=== PATIENT | male | born 1955 | race Caucasian/White ===

== ENCOUNTER 2018-03-16 08:04 | Day surgery (SDC) | payer MEDICARE, SELFPAY ==
[2018-03-10 12:08] LABS: Bacteria 0 SEEN /hpf (None Seen); Mucous, Urine 0 SEEN /hpf (<or=2+); Red Blood Cells-Urine 0 SEEN /hpf (0-5); Squamous Epithelial Cells - UA 0 SEEN /hpf (0-5); White Blood Cells 0 SEEN /hpf (0-5)
--- NOTE | 2018-03-10 12:15 | RAD_ITS ---
STUDY: X-RAY CHEST REASON FOR EXAM: Male, 62 years old. Preop, no chest complaint TECHNIQUE: PA and lateral views of the chest. COMPARISON: 02/21/2015 FINDINGS: There is hyperinflation of the lungs consistent with chronic obstructive lung disease (COPD). Lungs are clear. There is no demonstrated pleural abnormality. Stable left chest wall pacing device Normal size heart. Normal mediastinum and donnie. Normal visualized pulmonary arteries. Normal visualized aortic arch and descending thoracic aorta. There are diffuse degenerative changes of the visualized thoracic spine. Normal visualized ribs, clavicles, and shoulders. There is no demonstrated abnormality of the visualized soft tissue structures of the upper abdomen. RAD/Chest PA and Lateral IMPRESSION: COPD. Lungs are clear. Electronically Signed: Fredis Ayala DO at 13:32 EST Tel , Service support ,
[2018-03-10 12:39] LABS: Hematocrit 45.6 % (40-54); Hemoglobin 15.3 g/dl (13.0-16.5); Mean Corp Hgb Conc 33.6 g/gl (32-36); Mean Corpuscular Hgb 31.6 pg (27.0-32.0); Mean Corpuscular Volume 94.2 fL (80-94); Mean Platelet Vol. 10.9 fl (6.2-12.0); Platelet Count 279 K/mm3 (150-450); RBC Distribution Width CV 13.2 % (11.6-14.6); Red Blood Count 4.84 M/mm3 (4.6-6.2); White Blood Count 9.6 K/mm3 (4.4-11.0)
[2018-03-10 12:41] LABS: Scan Indicated on CBC? Y/N NO
[2018-03-10 12:44] LABS: International Normalized Ratio 0.9; Prothrombin Time (Protime)PT. 12.5 SECONDS (11.7-14.9)
[2018-03-10 12:49] LABS: Anion Gap 8 (5-15); BUN 15 mg/dL (7-18); BUN/Creat Ratio 14.6 RATIO (10-20); Calcium,Total 9.3 mg/dL (8.5-10.1); Chloride 107 mmol/L (98-107); Creatinine, Serum 1.03 mg/dL (0.70-1.30); EST Glomerular Filtration Rate 78 mL/min (>60); Est Glom Filt Rate - Afr Amer 94 mL/min (>60); Glucose 101 mg/dL (74-106); Potassium 4.3 mmol/L (3.5-5.1); Sodium Level 142 mmol/L (136-145)
[2018-03-10 14:16] LABS: Color, Urine Yellow (Yellow); Glucose, Dipstick Normal (Normal); Ketone-Dipstick Negative (Negative); Leukocyte Esterase-Dipstick Negative /ul (Negative); Nitrite-Dipstick Negative (Negative); Occult Blood-Urine Negative /ul (Negative); Protein-Dipstick Negative (Negative); Urine Bilirubin Dipstick Negative (Negative); Urine Clarity Sl. Cloudy (Clear); Urine Urobilinogen Normal (Normal); Urine pH 6.5 (5.0 - 8.0)
[2018-03-15 11:40] VITALS: BMI 30.4
--- NOTE | 2018-03-16 10:50 | CL.IE_ITS ---
Patient: KAMERON KOHLI Study Date: 03/16/2018 Performing: Ramin Schmitz MD : 1955 Age: 62 Gender: male PROCEDURES PERFORMED [id number] REMOVAL+REPLACEMENT ICD-SINGLE LEAD INDICATIONS End-of-life replacement indicator PROCEDURE DETAILS The patient was brought to the Catheterization Lab in the postabsorptive nonsedated state. Infor med consent was obtained prior to the procedure. Local anesthetic was given subcutaneously to the le ft chest region with Lidocaine 2%. Incision was made to the left upper chest. Device pocket was irrig ated with antibiotic. ICD generator was attached to the lead(s) and inserted into pocket. ICD generat or was then interrogated by numerical control programmer. The ICD generator was sutured in place with 3-0 Silk. Subcuta neous closure was completed with 3-0 Vicryl. Skin closure was completed with 4-0 Vicryl. Steri-strips applied to Lt chest area. Instrument, sponge, and needle counts were noted to be normal. The patient tolerated the procedure well. 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 The programmed parameters were a VVI of 40 bpm and aVF detection rate of 210 bpm and a VT dete ction rate of 170 bpm. DEVICE PARAMETERS: VT detect rate - 170 VF detect rate - 210 kuldip rate - 40 CONCLUSIONS / RECOMMENDATIONS Device Conclusions: Successful pulse generator insertion of a single-chamber ICD pulse generator with removal of the old ICD battery, with Dr. Yossi De Anda present. Device Recommendations: Follow-up with pacemaker defibrillator clinic PROCEDURE MEDICATIONS Versed 1 mg IV Fentanyl 50 mcg IV Versed 1 mg IV Oxygen: 2 L/min via nasal cannula Signed By Ramin Schmitz MD On 03/16/2018 13:27:47 Signed By Ramin Schmitz MD On 03/16/2018 10:49:56 Ramin Schmitz MD
== END 2018-03-16 12:00 | disposition home or self-care (01) ==
LOC: CLSP 08:05
PROVIDERS: Internal Medicine Cardiovascular Disease; Referring Provider Internal Medicine Cardiovascular Disease; Visit Provider Internal Medicine Cardiovascular Disease
DX: Z45.010 Encounter for checking and testing of cardiac pacemaker pulse generator [battery] (principal); Z95.810 Presence of automatic (implantable) cardiac defibrillator; I25.10 Atherosclerotic heart disease of native coronary artery without angina pectoris; I25.5 Ischemic cardiomyopathy; Z95.5 Presence of coronary angioplasty implant and graft; F17.200 Nicotine dependence, unspecified, uncomplicated; Z79.82 Long term (current) use of aspirin; Z00.6 Encounter for examination for normal comparison and control in clinical research program
CPT/HCPCS: 33262; 36415; 71046; 80048; 81001; 85027; 85610; 93641; 99152; 99153; J7040; J7050

== ENCOUNTER → 2018-03-22 06:49 | Outpatient (CLI) | payer MEDICARE, SELFPAY ==
[2018-03-15 11:40] VITALS: BMI 30.4
--- NOTE | 2018-03-22 12:20 | STRESSREP ---
Stress Test Report Pharmacologic myocardial perfusion stress test. 62-year-old man with a history of coronary artery disease with previous occluded left anterior descending artery stent ICD and ischemic cardiomyopathy. Stress protocol: Resting EKG demonstrates normal sinus rhythm with a rate of 65 bpm resting blood pressure 110/72 mmHg left bundle branch block pattern is noted. 0.4 mg of regadenoson was infused per usual protocol followed by rapid intravenous saline flush injection continuous EKG monitoring was performed. The patient maintained sinus rhythm throughout the recording the maximum heart rate attained was 90 bpm which was 56% of maximum predicted heart rate the maximum workload was 1 metabolic equivalent. At rest there were no ST or T wave changes noted suggest abnormal flow reserve at peak infusion no ST or T wave changes were noted suggest abnormal flow reserve. The resting blood pressure 110/72 with a final blood pressure 120/78. No clinical angina was noted. Myocardial perfusion protocol. 14.2 mCi of technetium 99m sestamibi was injected at rest. 0.4 mg of regadenoson was infused per usual protocol. At peak infusion 44.6 mCi of technetium 99m sestamibi was injected stress images were obtained stress and rest images were reconstructed and compared in the short axis vertical long and horizontal long axis. Gated images were also obtained per Perfusion SPECT analysis: Review of the stress images demonstrate a dilated cardiac silhouette size. There is a large defect noted involving the mid to distal anterior wall and apex as well as a defect in the inferior wall. The lateral wall appears to be well perfused. The septal wall has moderately reduced perfusion. The resting images demonstrate a similar pattern. The above is suggestive of an extensive previous anterior septal and apical infarct as well as a previous inferior infarct. The lateral wall appears to be the best perfused wall. No obvious areas of ischemia are noted. Gated SPECT analysis: The gated ejection fraction is noted to be 22%. Conclusion: Pharmacologic myocardial perfusion stress test with no evidence of ischemia. Previous extensive anterior, anteroseptal, apical and inferior infarct noted. Ischemic cardiomyopathy
--- OUTSIDE RECORDS SUMMARY | 2018-05-24 01:43 | XMS RPT_ITS | Summary of Care ---
:1955 Author Organization [facility] Address [address] [place] [address] Care Team Providers Name Role Phone Aurora Spann SECURITY PATROL DRIVER Primary Care Provider Encounter Details Date Type Department Care Team Description 03/13/2018 Documentation [facility] Jennifer Romero RN [place] Allergies Active Allergy Reactions Severity Noted Date Comments Simvastatin Other (See Comments) as of this encounter Medications Medication Sig Dispensed Refills Start Date End Date Status aspirin 325 MG tablet ASPIRIN 325 MG 0 05/29/2010 Active TABS coenzyme Q10 100 mg CO Q-10 100 MG 0 08/19/2010 Active capsule CAPS pravastatin Take 1 tablet(s) 3 12/30/2017 Active (PRAVACHOL) 80 MG every day by oral tablet route at bedtime for 30 days. carvedilol (COREG) Take 1 tablet(s) 3 12/16/2017 Active 3.125 MG tablet twice a day by oral route as directed for 90 days. furosemide (LASIX) 20 Take 1 tablet(s) 3 12/16/2017 Active MG tablet every day by oral route as directed for 90 days. VENTOLIN HFA 90 Take 90 mcg by 3 02/19/2018 Active mcg/actuation inhaler mouth as needed . cholecalciferol, Take 400 Units by 0 Active vitamin D3, 400 unit mouth 2 (two) Tab times a day . zinc gluconate 50 mg Take 50 mg by 0 Active tablet mouth daily . ascorbic acid, vitamin Take 1,000 mg by 0 Active C, (VITAMIN C) 1000 MG mouth daily . tablet b complex vitamins Take 1 tablet by 0 Active tablet mouth daily . as of this encounter Active Problems No known active problemsas of this encounter Social History Tobacco Use Types Packs/Day Years Used Date Current Every Day Smoker Cigarettes 1.5 Started: 03/09/1969 Smokeless Tobacco: Never Used Alcohol Use Drinks/Week oz/Week Comments Yes Sex Assigned at Date Recorded Not on file Job Start Date Occupation Industry Not on file Not on file Not on file Travel History Travel Start Travel End No recent travel history available. as of this encounter Plan of Treatment Upcoming Encounters Date Type Specialty Care Team Description 03/30/2018 Office Visit Pulmonology Paulina Arita MD [address] [facility] [address] [place] [address] [phone] Health Maintenance Due Date Last Done Comments COLONOSCOPY 1955 HEPATITIS C SCREENING 1955 ZOSTER VACCINES (1 of 2) 2006 SEQUENTIAL INFLUENZA VACCINE (#1) 2017 TETANUS EVERY 10 YR 12/11/2026 12/11/2016 as of this encounter Insurance Payer Benefit Plan / Subscriber ID Effective Dates Phone Address Type Group HUMANA MANAGED [employer] [facility] xxxxxxxxx 2017-Present MEDICARE ADVANTAGE CHOICE PPO as of this encounter Advance Directives Patient has advance care planning documents on file. For more information, please contact:[address] [phone]
--- OUTSIDE RECORDS SUMMARY | 2018-05-24 01:43 | XMS RPT_ITS | Summary of Care ---
:1955 Author Organization [facility] Address [address] [place], [place] [id number] Care Team Providers Name Role Phone LeandraAurora castro Talya EMAIL MARKETING COORDINATOR Primary Care Provider Reason for Referral Cardio (Routine) Status Reason Specialty Diagnoses / Referred By Referred To Procedures Contact Contact Authorized Cardiology Diagnoses Abnormal electrocardiogram Congestive heart failure, unspecified HF chronicity, unspecified heart failure type (HCC) Nanci Seay Procedures Echocardiogram complete LIZ Zayas [address] [facility] [address] [place] [address] MRI/CAT/PET Scan (Routine) Status Reason Specialty Diagnoses / Referred By Contact Referred To Procedures Contact Authorized Radiology Diagnoses Lung mass Nanci Seay Procedures CT Biopsy Lung LIZ Zayas [address] [facility] [address] [place] [address] Evaluate and Treat (Routine) Status Reason Specialty Diagnoses / Referred By Referred To Procedures Contact Contact Closed Specialty Cardiothoracic Diagnoses Lung mass [facility] Surgery Neida Hubbard MD State Required/Patien [address] [facility] [address] [facility] t's [facility] [address] [facility] [address] [place] [phone] Phone: Fax: Reason for Visit Reason Comments New Patient Lung mass PFT Evaluate and Treat (Routine) Status Reason Specialty Diagnoses / Referred By Referred To Procedures Contact Contact Closed Specialty Cardiothoracic Diagnoses Lung mass [facility] Surgery Neida Hubbard MD State Required/Patien [address] [place] [address] [place], [place] [phone] Phone: Fax: Encounter Details Date Type Department Care Team Description 03/13/2018 Office Visit [facility] Heart, Zurdo, Kwabena Lung mass (Primary Dx); Lung & Vascular MD Diego Congestive heart failure, unspecified HF chronicity, unspecified heart failure type (HCC); Surgeons [address] Abnormal electrocardiogram [address] [place], [place] [phone] Allergies Active Allergy Reactions Severity Noted Date Comments Simvastatin Other (See Comments) as of this encounter Medications Medication Sig Dispensed Refills Start Date End Date Status aspirin 325 MG ASPIRIN 325 MG 0 05/29/2010 Active tablet TABS coenzyme Q10 100 CO Q-10 100 MG 0 08/19/2010 Active mg capsule CAPS pravastatin Take 1 3 12/30/2017 Active (PRAVACHOL) 80 MG tablet(s) every tablet day by oral route at bedtime for 30 days. carvedilol (COREG) Take 1 3 12/16/2017 Active 3.125 MG tablet tablet(s) twice a day by oral route as directed for 90 days. furosemide (LASIX) Take 1 3 12/16/2017 Active 20 MG tablet tablet(s) every day by oral route as directed for 90 days. VENTOLIN HFA 90 Take 90 mcg by 3 02/19/2018 Active mcg/actuation mouth as needed inhaler . cholecalciferol, Take 400 Units 0 Active vitamin D3, 400 by mouth 2 unit Tab (two) times a day . zinc gluconate 50 Take 50 mg by 0 Active mg tablet mouth daily . ascorbic acid, Take 1,000 mg 0 Active vitamin C, by mouth daily (VITAMIN C) 1000 . MG tablet b complex vitamins Take 1 tablet 0 Active tablet by mouth daily . metFORMIN Take 500 mg by 0 03/13/2018 Discontinued (GLUCOPHAGE) 500 mouth 2 (two) MG tablet times a day with meals . as of this encounter Active Problems [...] travel history available. as of this encounter Last Filed Vital Signs Vital Sign Reading Time Taken Blood Pressure 131/84 03/13/2018 11:54 AM EST Pulse 86 03/13/2018 11:54 AM EST Temperature 36.4 ??C (97.5 ??F) 03/13/2018 11:54 AM EST Respiratory Rate 16 03/13/2018 11:54 AM EST Oxygen Saturation 96% 03/13/2018 11:54 AM EST Inhaled Oxygen Concentration - - Weight 93.8 kg (206 lb 14.4 oz) 03/13/2018 11:54 AM EST Height 175.3 cm (5' 9) 03/13/2018 11:54 AM EST Body Mass Index 30.55 03/13/2018 11:54 AM EST in this encounter Progress Notes Kwabena Renner MD - 03/20/2018 8:09 PM EST [facility] [address] [place] [phone] Name: Ryne King : 1955 Date: 03/13/18 Provider: Kwabena Renner MD Chief Complaint: Chief Complaint Patient presents with ??? New Patient Lung mass PFT Chief Complaint: Ryne King is a 62 y.o. male being seen on 03/20/18 for New Patient (Lung mass PFT ) . Assessment and Plan: Mr. iKng is a 62-year-old gentleman with likely left upper lobe lung cancer. Based on his CT and PET imaging, this appears to be an adjacent satellite lesion. This would clinically staged him asIIB (T3N0). In reviewing his medical history with him, he does have an ICD which was implanted following his massive heart attack in 2009. He admits his ejection fraction has been in the 20-25% rangesince that time. In light of this information, I think proceeding with a lobectomy which would be required given the location of his lesions is probably prohibitive. He does appear that he would tolerate it from a pulmonary perspective however. His FEV1 is 2.62 L which is 76% predicted. His DLCO is 114% predicted.Despite this however, I think his cardiac situation poses a significant risk for surgical resection,and in light of this will likely defer to radiation and possible chemotherapy for his primary treatment. Prior to doing so however, I would like to confirm his most recent ejection fraction remains inthe 20-25% range. He acknowledged understanding of this, and is willing to pursue alternative treatm ent options. Prior to doing so however, we will need to obtain a CT-guided needle biopsy for definitive tissue diagnosis. HPI: Mr. King is a 62 y.o. year old male who presents with a presumed left upper lobe lung cancer which was initially identified following a pulmonary infection in November. Ultimately a CT scan was performed identifying 2 lesions in the left upper lobe. He does have a very significant smoking history. Subsequent PET scan did confirm intense PET activity. He does not have a tissue diagnosis presentat this time however. Medication List Accurate as of 03/13/18 11:59 PM. If you have any questions, ask your nurse or doctor. CONTINUE taking these medications ascorbic acid (vitamin C) 1000 MG tablet Commonly known as: VITAMIN C aspirin 325 MG tablet b complex vitamins tablet carvedilol 3.125 MG tablet Commonly known as: COREG cholecalciferol (vitamin D3) 400 unit Tab coenzyme Q10 100 mg capsule furosemide 20 MG tablet Commonly known as: LASIX pravastatin 80 MG tablet Commonly known as: PRAVACHOL VENTOLIN HFA 90 mcg/actuation inhaler Generic drug: albuterol zinc gluconate 50 mg tablet Allergies Allergen Reactions ??? Simvastatin Other (See Comments) Past Medical History: Diagnosis Date ??? Heart attack (HCC) 2009 ??? Hyperlipidemia ??? Sleep apnea ??? Smoker ??? Stroke (HCC) 2009 Past Surgical History: Procedure Laterality Date ??? CARDIAC DEFIBRILLATOR PLACEMENT ??? OTHER SURGICAL HISTORY ??? STENT PLACEMENT x2 Family History Problem Relation Age of Onset ??? Hypertension Father Social History Socioeconomic History ??? Marital status: Unknown Spouse name: Not on file ??? Number of children: Not on file ??? Years of education: Not on file ??? Highest education level: Not on file Social Needs ??? Financial resource strain: Not on file ??? Food insecurity - worry: Not on file ??? Food insecurity - inability: Not on file ??? Transportation needs - medical: Not on file ??? Transportation needs - non-medical: Not on file Occupational History ??? Not on file Tobacco Use ??? Smoking status: Current Every Day Smoker Packs/day: 1.50 Types: Cigarettes Start date: 03/09/1969 ??? Smokeless tobacco: Never Used Substance and Sexual Activity ??? Alcohol use: Yes ??? Drug use: Not on file ??? Sexual activity: Not on file Other Topics Concern ??? Not on file Social History Narrative ??? Not on file Review of Systems Constitutional: Positive for fatigue. Negative for activity change, chills, diaphoresis and unexpected weight change. HENT: Negative. Respiratory: Positive for cough and shortness of breath. Negative for apnea, chest tightness and wheezing. Cardiovascular: Negative for chest pain, palpitations and leg swelling. Gastrointestinal: Negative for abdominal distention, constipation, diarrhea, nausea and vomiting. Musculoskeletal: Positive for arthralgias. Negative for joint swelling and myalgias. Skin: Negative. Neurological: Negative for dizziness, syncope, weakness and headaches. Hematological: Negative. Psychiatric/Behavioral: Negative. BP 131/84 (BP Location: Left arm, Patient Position: Sitting, BP Cuff Size: Adult) Pulse 86 Temp 97.5 ??F (36.4 ??C) (Oral) Resp 16 Ht 5' 9 Wt 93.8 kg (206 lb 14.4 oz) SpO2 96% BMI30.55 kg/m?? Body mass index is 30.55 kg/m??. Ht Readings from Last 1 Encounters: 03/13/18 5' 9 Wt Readings from Last 1 Encounters: 03/13/18 93.8 kg (206 lb 14.4 oz) Physical Exam Constitutional: He is oriented to person, place, and time. He appears well- developed and well-nourished. No distress. HENT: Head: Normocephalic and atraumatic. Neck: Normal range of motion. Neck supple. No JVD present. No tracheal deviation present. No thyromegaly present. Cardiovascular: Normal rate and regular rhythm. Pulmonary/Chest: Effort normal. No stridor. No respiratory distress. He has wheezes. Abdominal: Soft. Bowel sounds are normal. He exhibits no distension. There is no tenderness. There is no rebound. Musculoskeletal: Normal range of motion. He exhibits no edema. Lymphadenopathy: He has no cervical adenopathy. Neurological: He is alert and oriented to person, place, and time. No cranial nerve deficit. Skin: Skin is warm and dry. He is not diaphoretic. No erythema. Psychiatric: He has a normal mood and affect. His behavior is normal. ECO Kwabena Renner MD [facility] Heart, Lung & Vascular Surgeons [address], [address] [place] [id number] [email or web address] Gabriella Nunez CMA - 03/13/2018 12:02 PM ESTReview of Systems Constitution: Positive for night sweats. Negative for diaphoresis, malaise/fatigue, weight gain and weight loss. HENT: Negative for hearing loss, nosebleeds and tinnitus. Eyes: Negative for blurred vision and visual disturbance. Cardiovascular: Negative for chest pain, claudication, cyanosis, dyspnea on exertion, irregular heartbeat, leg swelling, near-syncope, orthopnea, palpitations, paroxysmal nocturnal dyspnea and syncope. Respiratory: Positive for snoring. Negative for hemoptysis and shortness of breath. Endocrine: Negative for cold intolerance and heat intolerance. Hematologic/Lymphatic: Does not bruise/bleed easily. Skin: Negative for flushing, poor wound healing and rash. Musculoskeletal: Negative for back pain, muscle weakness and myalgias. Gastrointestinal: Negative for abdominal pain, change in bowel habit, melena, nausea and vomiting. Genitourinary: Negative for decreased libido and hematuria. Neurological: Negative for loss of balance and numbness. Psychiatric/Behavioral: Negative for memory loss. The patient is not nervous/anxious. in this encounter Plan of Treatment Upcoming Encounters Date Type Specialty Care Team Description 03/27/2018 Appointment Cardiology Nanci Seay PA-C [address] [address] [phone] 03/27/2018 Hospital Encounter Radiology Nanci Seay PA-C [address] [address] [phone] 03/30/2018 Office Visit Pulmonology Paulina Arita MD [address] [facility] [address] [place] [address] [phone] Scheduled Tests Name Priority Associated Diagnoses Order Schedule CT Biopsy Lung Routine Lung mass 1 Occurrences starting 03/13/2018 until 03/13/2019 Echocardiogram complete Routine Abnormal electrocardiogram 1 Occurrences starting Congestive heart failure, 03/13/2018 until unspecified HF chronicity, 05/12/2019 unspecified heart failure type (HCC) CBC and Differential Routine Lung mass 1 Occurrences starting 03/14/2018 until 03/15/2019 PT/INR Routine Congestive heart failure, 1 Occurrences starting unspecified HF chronicity, 03/14/2018 until unspecified heart failure 03/15/2019 type (HCC) Health Maintenance Due Date Last Done Comments COLONOSCOPY 1955 HEPATITIS C SCREENING 1955 ZOSTER VACCINES (1 of 2) 2006 SEQUENTIAL INFLUENZA VACCINE (#1) 2017 TETANUS EVERY 10 YR 12/11/2026 12/11/2016 as of this encounter Procedures Procedure Name Priority Date/Time Associated Diagnosis Comments EXTERNAL LAB SCAN 03/20/2017 in this encounter Results EXTERNAL LAB SCAN (03/20/2017) Narrative Performed At Ordered by an unspecified provider. in this encounter Visit Diagnoses Diagnosis Lung mass - Primary Swelling, mass, or lump in chest Congestive heart failure, unspecified HF chronicity, unspecified heart failure type (HCC) Abnormal electrocardiogram Nonspecific abnormal electrocardiogram (ECG) (EKG) in this encounter Insurance Payer Benefit Plan / Subscriber ID Effective Dates Phone Address Type Group [facility] xxxxxxxxx 2017-Present MEDICARE ADVANTAGE CHOICE PPO [phone] [id number] (Work) as of this encounter Advance Directives Patient has advance care planning documents on file. For more information, please contact:[address] [phone]
--- OUTSIDE RECORDS SUMMARY | 2018-05-24 01:43 | XMS RPT_ITS | Summary of Care ---
:1955 Author Organization [facility] Address [address] [place] [address] Care Team Providers Name Role Phone Aurora Spann [facility] Primary Care Provider Encounter Details Date Type Department Care Team Description 03/13/[address] [facility] Lacy Bar, Lung mass Pulmonary Lab GSA COORDINATOR [address] [id number] [place] [address] [place] [address] [phone] Allergies Active Allergy Reactions Severity Noted Date [...] oral route as directed for 90 days. metFORMIN Take 500 mg by 0 03/13/2018 [...] Visit Pulmonology Paulina Arita MD [address] [facility] [address] [place] [address] [phone] Pending Results Name Priority Associated Diagnoses Date/Time Complete PFT with Pre and Post Routine Lung mass 03/13/2018 11:16 AM EST Bronchodilator Health Maintenance Due Date Last Done Comments COLONOSCOPY 1955 HEPATITIS C SCREENING 1955 ZOSTER VACCINES (1 of 2) 2006 SEQUENTIAL INFLUENZA VACCINE (#1) 2017 TETANUS EVERY 10 YR 12/11/2026 12/11/2016 as of this encounter Procedures Procedure Name Priority Date/Time Associated Diagnosis Comments COMPLETE PFT Routine 03/13/2018 11:16 AM EST Lung mass in this encounter Visit Diagnoses Diagnosis Lung mass Swelling, mass, or lump in chest in this encounter Administered Medications Inactive Administered Medications - up to 3 most recent administrations Medication Order MAR Action Action Date Dose Rate Site albuterol (PROVENTIL) 2.5 mg /3 Given 03/13/2018 11:12 AM EST 2.5 mg mL (0.083 %) nebulizer solution 2.5 mg 2.5 mg, Nebulization, Once (RT), 03/13/18 at 1200, For 1 dose, To be administered as part of Pulmonary Function Testing., in this encounter Insurance Payer Benefit Plan / Subscriber ID Effective Dates Phone Address Type Group [employer]MANA MANAGED HUMANA [facility] xxxxxxxxx 2017-Present MEDICARE ADVANTAGE CHOICE PPO [phone] [id number] (Work) as of this encounter Advance Directives Patient has advance care planning documents on file. For more information, please contact:[address] [phone]
--- OUTSIDE RECORDS SUMMARY | 2018-05-24 01:43 | XMS RPT_ITS | Summary of Care ---
:1955 Author Organization [facility] Address [address] [place] [address] Phone Care Team Providers Name Role Phone Unavailable Primary Care Provider Unavailable Encounter Details Date Type Department Care Team Description 03/16/2018 Notes/Results Only NOTES/RESULTS Other, Other Social History Tobacco Use Types Packs/Day Years Used Date Never Assessed Sex Assigned at Date Recorded Not on file as of this encounter Plan of Treatment Health Maintenance Due Date Last Done Comments HEPATITIS C VIRUS SCREENING 1955 HIV SCREENING DISCUSSION 1969 TETANUS 1974 TDAP (ADULT) 10/06/1975 LIPID SCREENING 1996 COLON CANCER SCREENING DISCUSSION 2006 PROSTATE CANCER SCREENING DISCUSSION 2006 INFLUENZA VACCINE Completed 12/16/2017, 12/16/2017 as of this encounter Procedures Procedure Name Priority Date/Time Associated Diagnosis Comments IMPLANT RECORD 03/16/2018 12:00 AM EST (OUTSIDE) in this encounter
--- OUTSIDE RECORDS SUMMARY | 2018-05-24 01:43 | XMS RPT_ITS | Summary of Care ---
:1955 Author Organization [facility] Address [address] [id number] Care Team Providers Name Role Phone Aurora Spann BRYCE Primary Care Provider Reason for Visit MRI/CAT/PET Scan (Routine) Status Reason Specialty Diagnoses / Referred By Referred To Procedures Contact Contact Authorized Radiology Diagnoses Lung mass Neida Childress S, Procedures CT Biopsy Lung MD [address] [place] [address] Encounter Details Date Type Department Care Team Description 02/23/2018 Hospital Encounter [facility] Neida Childress Canceled CT MD Haydee (Provider/Cancelled) [address] [phone] [facility] [phone] Allergies Active Allergy Reactions Severity Noted Date Comments Simvastatin Other (See Comments) as of this encounter Medications Prescription Sig. Disp. Refills Start Date End Date Status metFORMIN (GLUCOPHAGE) 500 Take 500 mg by Active MG tablet mouth 2 (two) times a day with meals . as of this encounter Social History Tobacco Use Types Packs/Day Years Used Date Never Assessed Sex Assigned at Date Recorded Not on file as of this encounter Progress Notes Yesy Heard RN - 02/20/2018 11:30 AM ESTConfirmed with patient and Nory that patient has plans to first see Dr Chavez in office as anew patient on March 13 before biopsy. Confirmed with Dr Chavez office regarding appointment, patient will go for PFT's and then meet with physician. Dr Childress's office notified of need to reschedule patient accordingly with VIR if biopsy is requested.Yesy Heard, RN - 02/13/2018 2:30 PM [facility]IR consulted for possible R lung biopsy. Dr Curiel communicates with Dr Childress via phone regarding options. Patient may f/u with Dr Chavez and get bronchoscopy therefore would have biopsy cancelled. Message left with office to confirm and have f/u with patient.in this encounter Plan of Treatment Upcoming Encounters Date Type Specialty Care Team Description 03/09/2018 Office Visit Pulmonology Paulina Arita MD [address] [facility] [address] [place] [address] [phone] 03/13/2018 Appointment Pulmonology Lacy Bar, STILL OPERATOR WHISKEY [address] [facility] [address] [place] [address] [phone] 03/13/2018 Office Visit Cardiothoracic Surgery Kwabena Renner MD [address] [facility] [address] [place] [address] [phone] Health Maintenance Due Date Last Done Comments COLONOSCOPY 1955 HEPATITIS C SCREENING 1955 ZOSTER VACCINES (1 of 2) 2006 SEQUENTIAL INFLUENZA VACCINE (#1) 2017 TETANUS EVERY 10 YR 12/11/2026 12/11/2016 as of this encounter
--- OUTSIDE RECORDS SUMMARY | 2018-05-24 01:43 | XMS RPT_ITS | Summary of Care ---
:1955 Author Organization [facility] Address [address] [place] [address] Care Team Providers Name Role Phone Leandragloria Aurora Talya WU Primary Care Provider Reason for Referral (Routine) Status Reason Specialty Diagnoses / Referred By Referred To Procedures Contact Contact Pending Review Radiology Diagnoses Pulmonary nodule Alghoarlene Paulina, Procedures PET Tumor Imaging With CT Skull To Thigh [address] [facility] [place] [address] [id number] Reason for Visit Reason Comments Lung Mass Had CT Biopsy scheduled but it was cancelled-Set to see Dr. Kwabena Renner 03/13/18 Encounter Details Date Type Department Care Team Description 03/09/2018 Office Visit [facility] Pulmonary DonaldhoPaulina jacobs, Pulmonary nodule (Primary Dx); Physicians Abnormal CT scan; [address] [place] [address] [address] [facility] [employer]ependence [address] [place] [address] [place] [address] [phone] Allergies Active Allergy Reactions Severity Noted Date Comments Simvastatin Other (See Comments) as of this encounter Medications Prescription Sig. Disp. Refills Start Date End Date Status metFORMIN (GLUCOPHAGE) Take 500 mg by mouth Active 500 MG tablet 2 (two) times a day with meals . aspirin 325 MG tablet ASPIRIN 325 MG TABS 05/29/2010 Active coenzyme Q10 100 mg CO Q-10 100 MG CAPS 08/19/2010 Active capsule pravastatin (PRAVACHOL) Take 1 tablet(s) 3 12/30/2017 Active 80 MG tablet every day by oral route at bedtime for 30 days. carvedilol (COREG) 3.125 Take 1 tablet(s) 3 12/16/2017 Active MG tablet twice a day by oral route as directed for 90 days. furosemide (LASIX) 20 MG Take 1 tablet(s) 3 12/16/2017 Active tablet every day by oral route as directed for 90 days. as of this encounter Active Problems No known active problems Social History Tobacco Use Types Packs/Day Years Used Date Current Every Day Smoker Cigarettes 1.5 Started: 03/09/1969 Smokeless Tobacco: Never Used Sex Assigned at Date Recorded Not on file as of this encounter Last Filed Vital Signs Vital Sign Reading Time Taken Blood Pressure 132/80 03/09/2018 12:28 PM EST Pulse 86 03/09/2018 12:28 PM EST Temperature - - Respiratory Rate 14 03/09/2018 12:28 PM EST Oxygen Saturation 97% 03/09/2018 12:28 PM EST Inhaled Oxygen Concentration - - Weight - - Height - - Body Mass Index - - in this encounter Progress Notes Paulina Arita MD - 03/09/2018 12:21 PM ESTFormatting of this note may be different from the original. Ryne King is a 62 y.o. male with history of hypertension, CAD status post PCI and ICD, RONNA,ongoing tobacco abuse who was seen at the [facility] office at [facility] in consultation at the request of Dr. Childress for evaluation of abnormal chest CT. Briefly, Mr. King mentions that he had a real bad cold in November. He was treated with antibiotics and steroids and a chest x-ray was ordered. The chest x-ray was reportedly abnormal and subsequently a CAT scan and then a PET scan were ordered. His CT scan showed 2 left upper lobe pulmonary nodules, which are fairly adjacent to each other. He saw Dr. Childress with oncology and she recommended a biopsy. Today, he mentions that he feels well. He denies shortness of breath, fevers, chills, or weight loss. He does have some intermittent night sweats. He has a chronic cough that is productive of avila or yellow sputum. He denies hemoptysis however. He is fairly active and is able to walk long distances without shortness of breath. He was prescribed a Ventolin inhaler, which he uses very infrequently. He was diagnosed with obstructive sleep apnea about 8 years ago and was prescribed CPAP. He does not use this regularly. He also has a cardiac history and has 2 bare-metal stents and an ICD in place. He is on full dose aspirin. He follows with Dr. Schmitz, cardiology, in [place], [place]. He is due for battery exchange for his ICD in the near future. He has had asbestos exposure in the past. 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 He is a current smoker and smokes 1 pack/day. He used to smoke up to 3 packs/day for total of 10 years. He started smoking at age 14. Medical History: Past Medical History: Diagnosis Date ??? Smoker Past Surgical History: Procedure Laterality Date ??? CARDIAC DEFIBRILLATOR PLACEMENT ??? OTHER SURGICAL HISTORY ??? STENT PLACEMENT There is no immunization history on file for this patient. Social History: Social History Substance Use Topics ??? Smoking status: Current Every Day Smoker Packs/day: 1.50 Types: Cigarettes Start date: 03/09/1969 ??? Smokeless tobacco: Never Used ??? Alcohol use Not on file History Smoking Status ??? Current Every Day Smoker ??? Packs/day: 1.50 ??? Types: Cigarettes ??? Start date: 03/09/1969 Smokeless Tobacco ??? Never Used History Alcohol use Not on file History Drug use: Unknown Family History family history includes Hypertension in his father. Medications: He has a current medication list which includes the following prescription(s): aspirin, carvedilol, coenzyme q10, furosemide, metformin, and pravastatin. Allergies: Allergies Allergen Reactions ??? Simvastatin Other (See Comments) Review of systems: Constitutional: negative for fevers, chills, or weight changes Eyes: negative for vision changes ENT: negative Cardiovascular: negative for LE edema, PND or orthopnea Respiratory: negative for shortness of breath; positive for chronic cough Gastrointestinal: negative for abdominal pain, nausea, vomiting, constipation or diarrhea Genitourinary: negative for dysuria Integumentary: negative for rash Musculoskeletal: negative Psych: no depressed mood Physical Exam: BP 132/80 (BP Location: Left arm, Patient Position: Sitting, BP Cuff Size: X- large Adult) Pulse 86 Resp 14 SpO2 97% There is no height or weight on file to calculate BMI. Gen: alert, awake, in no apparent distress HEENT: pupils equal, round and reactive, extraocular muscles intact. No scleral icterus. Mouth moistand pink with no exudates. Mallampati class 2. Neck supple. No stridor. Cardio: Normal rate and regular rhythm. No murmurs, rubs or gallops. Resp: clear to auscultation bilaterally. No wheezing, rhonchi or rales. GI: soft, non-tender, non-distended, bowel sounds present MS: no joint effusions or erythema Skin: no jaundice or rash Neuro: grossly intact Psych: alert and oriented X 3, appropriate affect and cognition Lab/Imaging/Data Review: Additional Labs: I have reviewed the following labs: None Pulmonary Function Tests: Ordered Echocardiography: None Imaging/Radiological Studies: I personally reviewed the images (CT of the chest from 01/05/18 as well as PET scan from 01/10/18) which showed 2 left upper lobe pulmonary nodules, both PET avid, emphysematous changes. The official report showed: PET scan (01/10/18): 1. Markedly hypermetabolic nodular opacities in the medial left upper lobe are most consistent with malignancy. Consider tissue sampling for pathologic diagnosis. 2. Indeterminate bilateral lower paratracheal lymph nodes. Subcentimeter left axillary lymph nodes are favored to be reactive. A borderline enlarged left level IIA cervical lymph node is favored to bereactive. 3. No osseous metastatic disease. A well-circumscribed lucent lesion in the proximal right femur atis not FDG-avid, is most consistent with a benign etiology. 4. Moderately increased FDG uptake associated with mild wall thickening in the distal esophagus may be physiologic or inflammatory. Consider upper endoscopy for further evaluation if clinically warranted. 5. Incidental CT findings. Assessment/Plan: Ryne King is a 62 y.o. male with history of hypertension, CAD status post PCI and ICD, RONNA,ongoing tobacco abuse who presented for evaluation of abnormal chest CT. Abnormal chest CT Left upper lobe pulmonary nodules, concerning for primary lung malignancy Emphysema Ongoing tobacco dependence Obstructive sleep apnea, does not use CPAP He was initially scheduled for a CT-guided biopsy of the left upper lobe nodule, however this was canceled because he wanted to discuss the procedure prior to pursuing it. I have reviewed the images with Dr. Gordon and a navigational bronchoscopy seems challenging in this case. The PET scan showed very slight PET avidity in the right lower paratracheal lymph node, however, I do not suspect that this is malignancy given such low avidity as well as it being on the contralateral side. Nonetheless, I do think it would be worthwhile to repeat the PET scan since it has been 2 months to reassess lymph node involvement. If there is any increased uptake in the lymph nodes, will pursue EBUS with TBNA as diagnostic procedure of choice. If not, we could obtain CT scan with 1 mm cuts to better assess for feasibility of navigational bronchoscopy. A CT-guided biopsy is still an option, however the lesion seems somewhat central and he would be at high risk for pneumothorax. Finally, he is scheduledto see Dr. Renner with thoracic surgery next week; could potentially be a candidate for surgical resection without biopsy. He is scheduled for PFTs next week. I have encouraged tobacco cessation. I will see Ryne King in follow up in 3 weeks. Paulina Arita MD Pulmonary and Critical Care This note was dictated using [email or web address] Software and may contain errors that were not corrected during editing. in this encounter Plan of Treatment Upcoming Encounters Date Type Specialty Care Team Description 03/13/2018 Appointment Pulmonology Lacy Bar, COST COORDINATOR [address] [facility] [address] [place] [address] [phone] 03/13/2018 Office Visit Cardiothoracic Surgery Kwabena Renner MD [address] [address] [phone] 03/30/2018 Office Visit Pulmonology Paulina Arita MD [address] [facility] [address] [place], [place] [id number] Scheduled Tests Name Priority Associated Diagnoses Order Schedule PET Tumor Imaging With CT Routine Pulmonary nodule 1 Occurrences starting Skull To Thigh 03/09/2018 until 03/09/2019 Health Maintenance Due Date Last Done Comments COLONOSCOPY 1955 HEPATITIS C SCREENING 1956 ZOSTER VACCINES (1 of 2) 2006 SEQUENTIAL INFLUENZA VACCINE (#1) 2017 TETANUS EVERY 10 YR 12/11/2026 12/11/2016 as of this encounter Visit Diagnoses Diagnosis Pulmonary nodule - Primary Other diseases of lung, not elsewhere classified Abnormal CT scan Other nonspecific (abnormal) findings on radiological and other examinations of body structure Tobacco Dependence Tobacco use disorder
--- OUTSIDE RECORDS SUMMARY | 2018-05-24 01:44 | XMS RPT_ITS ---
:1955 Author Organization OHIP Support Name Relationship Address Phone D Unavailable Unavailable Unavailable KOHLI, ADONIS Unavailable [address] + [place] [address] D Unavailable Unavailable Unavailable KOHLI, ADONIS Unavailable [address] + [place] [address] D Unavailable Unavailable Unavailable KOHLI, ADONIS Unavailable [address] + [place] [address] KOHLI, ADONIS Unavailable [address] + [place] [address] KOHLI, ADONIS Unavailable [address] + [place] [address] D Unavailable Unavailable Unavailable KOHLI, ADONIS Unavailable NA + [place], [place] D Unavailable Unavailable Unavailable KOHLI, ADONIS Unavailable [address] + [place] [address] KOHLI, ADONIS Unavailable [address] + [place] [address] D Unavailable Unavailable Unavailable KOHLI, ADONIS Unavailable NA + [place], [place] KOHLI, ADONIS Unavailable [address] + [place] [address] KOHLI, ADONIS Unavailable [address] + [place] [address] KOHLI, ADONIS Unavailable [address] + [place] [address] KOHLI, ADONIS Unavailable [address] + [place] [address] KOHLI, ADONIS Unavailable [address] + [place] [address] D Unavailable Unavailable Unavailable KOHLI, ADONIS Unavailable NA + [place], [place] D Unavailable Unavailable Unavailable KOHLI, ADONIS Unavailable NA + [place], [place] D Unavailable Unavailable Unavailable KOHLI, ADONIS Unavailable NA + [place], [place] Care Team Providers Name Role Phone PARNICHYAKORN, SIRINTRA Admitting Unavailable PARNICHYAKORN, SIRINTRA Attending Unavailable PARNICHYAKORN, SIRINTRA Admitting Unavailable PARNICHYAKORN, SIRINTRA Attending Unavailable PARNICHYAKORN, SIRINTRA Consulting Unavailable DEBRUIN INSPECTOR TECHNICIAN, MARCOS Admitting Unavailable DEBRUIN INSPECTOR TECHNICIAN, MARCOS Attending Unavailable DEBRUIN INSPECTOR TECHNICIAN, MARCOS Admitting Unavailable DEBRUIN INSPECTOR TECHNICIAN, MARCOS Attending Unavailable DEBRUIN INSPECTOR TECHNICIAN, MARCOS Admitting Unavailable DEBRUIN INSPECTOR TECHNICIAN, MARCOS Attending Unavailable DEBRUIN, MARCOS Admitting Unavailable UNKNOWN, DOC Referring Unavailable SONIA CAPUTO Attending Unavailable DEBRUIN, MARCOS ANTHONY Primary Care Unavailable CASSIDY PADRON Attending Unavailable DEBRUIN, MARCOS ANTHONY Primary Care Unavailable NALLARI, OPAL SETHURAM Referring Unavailable DEIDRE ARGUETA Admitting Unavailable DEIDRE ARGUETA Attending Unavailable NALLARI, OPAL SETHURAM Referring Unavailable DEBRUIN, MARCOS ANTHONY Primary Care Unavailable DEBRUIN, MARCOS Attending Unavailable DEBRUIN, MARCOS Referring Unavailable DEBRUIN, MARCOS Primary Care Unavailable DEBRUIN, MARCOS Attending Unavailable DEBRUIN, MARCOS Referring Unavailable DEBRUIN, MARCOS Primary Care Unavailable SYSTEM, PROVIDER NOT IN Admitting Unavailable SYSTEM, PROVIDER NOT IN Referring Unavailable DEBRUIN, MARCOS ANTHONY Primary Care Unavailable SYSTEM, PROVIDER NOT IN Admitting Unavailable SYSTEM, PROVIDER NOT IN Referring Unavailable DEBRUIN, MARCOS ANTHONY Primary Care Unavailable MICHELLE AVENDANO Attending Unavailable MICHELLE AVENDANO Referring Unavailable DEBRUIN, MARCOS ANTHONY Primary Care Unavailable Nikki Bhatt Attending Unavailable Willson, Alvarado Referring Unavailable Nikki Bhatt Attending Unavailable Alvarado Willson Referring Unavailable Devaughn Murillo H Attending Unavailable Willson, Alvarado Referring Unavailable AdilsonYossi sweeney Attending Unavailable AdilsonEsme sweeneyile Referring Unavailable Primay Care Physicia, No Primary Care Unavailable Devaughn Murillo Attending Unavailable Roof, Devaughn H Referring Unavailable Primay Care Physicia, No Primary Care Unavailable Nikki Bhatt Attending Unavailable Willson, Alvarado Referring Unavailable Nikki Bhatt Attending Unavailable Willson, Alvarado Referring Unavailable Willson, Alvarado Primary Care Unavailable Nikki Bhatt Attending Unavailable Willson, Alvarado Referring Unavailable Willson, Alvarado Primary Care Unavailable Nikki Bhatt Attending Unavailable Willson, Alvarado Referring Unavailable PROBLEMS PROBLEMS DATE TYPE CONDITION / CODE ATTENDING STATUS SOURCE Unknown I25.5 - Ischemic Nikki Bhatt Active [facility] cardiomyopathy / Community I25.5(ICD-10) Hospital Repository Unknown I46.9 - Cardiac MillerNikki obregon Active [place] 9 arrest, cause Community unspecified / Hospital I46.9(ICD-10) Repository Unknown Z95.810 - Presence of Nikki Bhatt Active [place] 9 automatic Community (implantable) cardiac Hospital defibrillator / Repository Z95.810(ICD-10) Unknown I25.10 - Nikki Bhatt Active [facility] 9 Atherosclerotic heart Community disease of [facility] coronary artery Repository without angina pectoris / I25.10(ICD-10) Unknown I63.9 - Cerebral Nikki Bhatt Active [place] 9 infarction, Community unspecified / Hospital I63.9(ICD-10) Repository Admitting Other nonspecific ELLIEDEIDRE [employer] [place] Who What Wear diagnosis abnormal finding of JORGE Arnold lung field / Repository R91.8(ICD-10) Admitting Heart failure, ELLIE DEIDRE [facility] [place] [address] diagnosis unspecified / CHRISTOPHER Three I50.9(ICD-10) Repository Admitting Abnormal ELLIEDEIDRE VILLARREAL [facility] [place] [address] diagnosis electrocardiogram CHRISTOPHER Three (ECG) (EKG) / Repository R94.31(ICD-10) Unknown Z95.5 - Presence of Devaughn Murillo Active [facility] 9 coronary angioplasty Community implant and graft / Hospital Z95.5(ICD-10) Repository Admitting Solitary pulmonary ALGHOTHANI, CASSIDY [facility] [place] [address] diagnosis nodule / R91.1(ICD-10) Three Repository Admitting Abnormal findings on ALGHOTHANI, CASSIDY [place] [address] diagnosis diagnostic imaging of Three other specified body Repository structures / R93.89(ICD-10) Admitting Nicotine dependence, CASSIDY PADRON [place] [address] diagnosis unspecified, Three uncomplicated / Repository F17.200(ICD-10) PROCEDURES PROCEDURES No Procedure Records FoundRESULTS RESULTS PACEMAKER CHECK Observed: 03/23/2018 Status: F Source: [place] 4:00 PM [facility] REPOSITORY [facility] [address] [place] [address] Pacemaker Check Date of Service: 03/23/18 1153 MR#: [id number] Acct: [id number] Name: KAMERON KOHLI Rep #: [id number] : 1955 From: Nikki Bhatt Age/Sex: 62/M Location: [facility] Status: Signed Billing Codes ICD Device Billing: ICD Dev Prog Eval, Single 03/23/18 1156 <Electronically signed by Nikki Bhatt > Date Nikki Bhatt 03/23/18 1600<Electronically signed by Ramin Schmitz MD> Cosigner Signature: Date (if applicable) Ramin Schmitz MD CC: STRESS REPORT Observed: 03/22/2018 Status: F Source: [place] 12:26 PM [facility] REPOSITORY [facility] Cardi[facility] Services [address] [place] [address] MR#: [id number] Acct: [id number] Name: KAMERON KOHLI Rep #: [id number] : 1955 62 From: Ramin Schmitz MD Primary Care: Care Physician, No Primary Status: REG CLI Ordering Dr: Sex: M C Stress Test Report Pharmacologic myocardial perfusion stress test. 62-year-old man with a history of coronary artery disease with previous occluded left anterior descending artery stent ICD and ischemic cardiomyopathy. Stress protocol: Resting EKG demonstrates normal sinus rhythm with a rate of 65 bpm resting blood pressure 110/72 mmHg left bundle branch block pattern is noted. 0.4 mg of regadenoson was infused per usual protocol followed by rapid intravenous saline flush injection continuous EKG monitoring was performed. The patient maintained sinus rhythm throughout the recording the maximum heart rate attained was 90 bpm which was 56% of maximum predicted heart rate the maximum workload was 1 metabolic equivalent. At rest there were no ST or T wave changes noted suggest abnormal flow reserve at peak infusion no ST or T wave changes were noted suggest abnormal flow reserve. The resting blood pressure 110/72 with a final blood pressure 120/78. No clinical angina was noted. Myocardial perfusion protocol. 14.2 mCi of technetium 99m sestamibi was injected at rest. 0.4 mg of regadenoson was infused per usual protocol. At peak infusion 44.6 mCi of technetium 99m sestamibi was injected stress images were obtained stress and rest images were reconstructed and compared in the short axis vertical long and horizontal long axis. Gated images were also obtained per Perfusion SPECT analysis: Review of the stress images demonstrate a dilated cardiac silhouette size. There is a large defect noted involving the mid to distal anterior wall and apex as well as a defect in the inferior wall. The lateral wall appears to be well perfused. The septal wall has moderately reduced perfusion. The resting images demonstrate a similar pattern. The above is suggestive of an extensive previous anterior septal and apical infarct as well as a previous inferior infarct. The lateral wall appears to be the best perfused wall. No obvious areas of ischemia are noted. Gated SPECT analysis: The gated ejection fraction is noted to be 22%. Conclusion: Pharmacologic myocardial perfusion stress test with no evidence of ischemia. Previous extensive anterior, anteroseptal, apical and inferior infarct noted. Ischemic cardiomyopathy 03/22/18 1226 <Electronically signed by Ramin Schmitz MD> Date Ramin Schmitz MD CC: JAVI Murillo; No Primary Care Physician Date Dictated: 03/22/18 1220 Date Transcribed: 03/22/18 1220 Bariatric Physician: CO Signed PACEMAKER CHECK Observed: 03/14/2018 Status: F Source: [place] 10:08 AM [facility] REPOSITORY [facility] [address] [place] [address] Pacemaker Check Date of Service: 03/10/18 1533 MR#: [id number] Acct: [id number] Name: KAMERON KOHLI Rep #: [id number] : 1955 From: Nikki Bhatt Age/Sex: 62/M Location: [facility] Status: Signed Billing Codes Nurse, Teaching, Wound Ck (no charge): Yes 03/10/18 1542 <Electronically signed by Nikki Bhatt > Date Nikki Bhatt 03/14/18 1008<Electronically signed by Ramin Schmitz MD> Cosign Signature: Date (if applicable) Ramin Schmitz MD CC: COMPLETE PFT Observed: 03/14/2018 Status: F Source: [facility] 7:43 AM TWO REPOSITORY Order Comment: with Pre and Post Bronchodilator COMPLETE PFT INTERPRETATION I have independently reviewed the data and tracings from the patient's pulmonary function tests from 03/13/2018. Spirometry Spirometry suggests a restrictive impairment but with normal lung volumes, this is a non-specific pattern. There was no significant bronchodilator response. Inspiratory flow-volume loop is normal. Lung Volumes Lung volumes are within normal limits. Diffusion Capacity There is no reduction in diffusion capacity. Finalized by: DOM BRAN on TueMar 14, 2018 7:45:04 AM EST CHEST PA AND LATERAL Observed: 03/10/2018 Status: F Source: [place] 12:15 PM [facility] REPOSITORY [facility] Imaging Services [address] [place] [address] Chest PA and Lateral MR#: [id number] Acct: [id number] Name: KAMERON KOHLI Rep #: [id number] : 1955 M 62 From: Fredis Ayala DO PCP: Care Physician, No Primary Status: PRE [facility] Study: Chest PA and Lateral Date of Exam: 03/10/18 Exam# [id number] Ordering Dr: Ramin Schmitz MD STUDY: X-RAY CHEST REASON FOR EXAM: Male, 62 years old. Preop, no chest complaint TECHNIQUE: PA and lateral views of the chest. COMPARISON: 02/21/2015 FINDINGS: There is hyperinflation of the lungs consistent with chronic obstructive lung disease (COPD). Lungs are clear. There is no demonstrated pleural abnormality. Stable left chest wall pacing device Normal size heart. Normal mediastinum and donnie. Normal visualized pulmonary arteries. Normal visualized aortic arch and descending thoracic aorta. There are diffuse degenerative changes of the visualized thoracic spine. Normal visualized ribs, clavicles, and shoulders. There is no demonstrated abnormality of the visualized soft tissue structures of the upper abdomen. RAD/Chest PA and Lateral IMPRESSION: COPD. Lungs are clear. Electronically Signed: Fredis Ayala DO at 13:32 EST Tel , Service support , CC: No Primary Care Physician; Ramin Schmitz MD Bariatric Physician: Signed CBC-COMPLETE BLOOD CNT Collected: 03/10/2018 Status: F Source: [place] NO DIFF 10:00 AM [facility] REPOSITORY TYPE CODE TESTS RESULT OUT OF RANGE REFERENCE UNITS LAB L100.1000 4.4-11.0 K/mm3 Normal WBC 9.6 LAB L100.1200 4.6-6.2 M/mm3 Normal RBC 4.84 LAB L100.1300 13.0-16.5 g/dl Normal HGB 15.3 LAB L100.1400 40-54 % Normal HCT 45.6 LAB L100.1500 80-94 fL High MCV 94.2 LAB L100.1600 27.0-32.0 pg Normal MCH 31.6 LAB L100.1700 32-36 g/gl Normal MCHC 33.6 LAB L100.1810 11.6-14.6 % Normal RDW CV 13.2 LAB L100.1820 35.1-43.9 fl High RDW SD 44.0 LAB L100.1900 150-450 K/mm3 Normal PLT 279 LAB L100.2000 6.2-12.0 fl Normal MPV 10.9 Performed By: #### L100.0500 #### [facility] [address] [place], [address] BASIC METABOLIC Collected: 03/10/2018 Status: F Source: [place] PROFILE (BMP) 10:00 AM [facility] REPOSITORY TYPE CODE TESTS RESULT OUT OF RANGE REFERENCE UNITS LAB L501.0100 74-106 mg/dL Normal GLU 101 Result Comment: Fasting Glucose result from 100 to 125 mg/dL suggests IMPAIRED HOMEOSTASIS per A.D.A. criteria. Please note revised GLUCOSE reference range effective 2017. LAB L501.1000 7-18 mg/dL Normal BUN 15 LAB L501.1100 0.70-1.30 mg/dL Normal CREAT,SERUM 1.03 Result Comment: The validity of the calculated GFR AND GFRAA in patients over 70 years has not been determined. Clinical correlation is essential. LAB L501.1110 >60 mL/min Normal EST GFR 78 Result Comment: Non- GFR Calc LAB L501.1115 >60 mL/min Normal EST GFR - AA 94 Result Comment: GFR Calc LAB L501.1300 10-20 RATIO Normal BUN/CRE 14.6 LAB L501.2200 8.5-10.1 mg/dL CA Normal 9.3 LAB L501.5300 136-145 mmol/L NA Normal 142 LAB L501.5600 3.5-5.1 mmol/L K Normal 4.3 LAB L501.5900 98-107 mmol/L CL Normal 107 LAB L501.6100 21.0-32.0 mmol/L Normal CO2 27.0 LAB L501.6200 5-15 Normal GAP 8 Performed By: #### L500.2500 #### [facility] [address] [place], [place], [id number] PROTHROMBIN TIME W/INR Collected: 03/10/2018 Status: F Source: [place] 10:00 AM [facility] REPOSITORY TYPE CODE TESTS RESULT OUT OF RANGE REFERENCE UNITS LAB L300.4150 11.7-14.9 SECONDS Normal PROTIME 12.5 LAB L300.4200 Normal INR 0.9 Performed By: #### L300.3900 #### [facility] [address] [place], [place], [id number] URINALYSIS, COMPLETE Collected: 03/10/2018 Status: F Source: [place] 10:00 AM [facility] REPOSITORY Order Comment: How was Urine Obtained? HOOKER LASTER TO SPECIFY TYPE CODE TESTS RESULT OUT OF RANGE REFERENCE UNITS LAB L400.3000 Yellow COLOR Normal Yellow LAB L400.3050 Clear Normal CLARITY Sl. Cloudy LAB L400.3200 Normal mg/dl Normal GLUCOSE, UR Normal LAB L400.3300 Negative mg/dL Normal BILIRUBIN URINE Negative LAB L400.3400 Negative mg/dl Normal KETONE UR Negative LAB L400.3465 1.002-1.030 Normal SP.GR. DIPSTX 1.010 LAB L400.3550 5.0 - 8.0 pH UR Normal 6.5 LAB L400.3600 Negative mg/dl PROT Normal DIPSTX Negative LAB L400.3700 Normal mg/dl Normal UROBILI Normal LAB L400.3750 Negative Normal NITRITE UR Negative LAB L400.3780 Negative /ul Normal OCCULT BLOOD-UR Negative LAB L400.3800 Negative /ul LEUK Normal ESTERASE Negative LAB L400.4050 0-5 /hpf WBC 0 Normal SEEN LAB L400.4100 0-5 /hpf 0 Normal RBC-UA SEEN LAB L400.4150 0-5 /hpf SQUAM 0 Normal EPI SEEN LAB L400.4300 None Seen /hpf 0 Normal BACTERIA SEEN LAB L400.4350 <or=2+ /hpf 0 Normal MUCUS, URINE SEEN Performed By: #### L400.0001 #### [facility] [address] [place], [place], [id number] PACEMAKER CHECK Observed: 02/16/2018 Status: F Source: [place] 3:54 PM [facility] REPOSITORY [facility] [address] [place] [address] Pacemaker Check Date of Service: 02/16/18 1347 MR#: [id number] Acct: [id number] Name: KAMERON KOHLI Rep #: [id number] : 1955 From: Nikki Bhatt Age/Sex: 62/M Location: [facility] Status: Signed Billing Codes ICD Device Billing: ICD Dev Prog Eval, Single 02/16/18 1348 <Electronically signed by Nikki Bhatt > Date Nikki Bhatt 02/16/18 1554<Electronically signed by Ramin Schmitz MD> Cosigner Signature: Date (if applicable) Ramin Schmitz MD CC: [facility] IMAG W CT Observed: 01/10/2018 Status: F Source: [facility] SKULL TO THIGH 12:02 PM REPOSITORY Order Comment: Reason for exam?:Lung nodules Injury/Trauma or Illness?:Illness/Other How long have you had these symptoms (acute/chronic)?:Unknown Type of Exam?:Initial Additional signs and symptoms?:no EXAMINATION: PET [facility] IMAG W CT SKULL TO THIGH HISTORY: Dx: Lung nodules R91.8 (ICD-10-CM). This study is requested for diagnosis. Initial treatment strategy. TECHNIQUE: The patient's fasting blood glucose level measured by glucometer was 101 mg/dL. After oral administration of Isovue-370 and intravenous administration of 11.4 mCi of F-18 fluorodeoxyglucose (FDG), low-dose, non-contrast CT images were obtained for attenuation correction and for fusion with emission PET images to allow for anatomical localization of PET findings. Emission PET images were then obtained. The area imaged spanned the region from the skull base to the proximal thighs. The time from injection of FDG to the start of imaging was 63 minutes. Additional reconstruction was performed using [employer] technique, which has been reported to increase accuracy of SUV measurements. COMPARISON: A report from CT of the chest dated 12/30/2017, performed at [facility], is available for review. The images are not immediately available for direct comparison. FINDINGS: NECK: A left level IIa cervical lymph node measuring 9 mm in short axis has moderately increased FDG uptake, with a maximum standardized uptake value (SUV) of 3.7 on image 41. CHEST: A 2.2 x 1.2 cm bilobed nodular opacity in the medial left upper lobe is markedly hypermetabolic, with an SUV of 24.2 on image 93. An adjacent 1.4 x 1.1 cm pulmonary nodule is also markedly hypermetabolic, with an SUV of 16.8 on image 95. A left lower paratracheal lymph node measuring 1 cm in short axis in the aortopulmonary window has FDG uptake similar to background in mediastinal blood pool with, SUV 2.9 on image 95. A right lower paratracheal lymph node measuring 1.1 cm in short axis also has FDG uptake similar to background in mediastinal blood pool, SUV 2.9 on image 96. A subcarinal lymph node measuring 7 mm in short axis has an SUV of 3.1 on image 103. A moderately hypermetabolic left axillary lymph node with a fatty hilum measures 7 mm in short axis and has an SUV of 3.9 on image 78. An adjacent smaller left axillary lymph node on image 76 is mildly hypermetabolic. There is moderately increased FDG uptake associated with mild wall thickening in the distal esophagus. ABDOMEN AND PELVIS: There is a physiologic distribution of FDG uptake. No hypermetabolic adrenal nodule or lymphadenopathy. MUSCULOSKELETAL: FDG uptake in the bone marrow is within normal limits. No focal hypermetabolic osseous lesion. No focally increased FDG uptake associated with a 1.2 cm well-circumscribed lucent lesion in the proximal right femur on image 245. There are small foci of increased FDG uptake associated with degenerative changes in the lumbar spine. INCIDENTAL CT FINDINGS: There is encephalomalacia in the visualized left posterior temporal and occipital lobes. Leads from a left chest pacemaker are in the right ventricle. There is calcification of the left anterior descending coronary artery. Mild calcifications at the aortic root. Minimal upper lobe predominant emphysema. Mild bilateral gynecomastia. Moderate atherosclerotic calcification of the abdominal aorta and iliac arteries. There are coarse calcifications in the prostate. Thickening of the wall of the urinary bladder may be secondary to underdistention. Small fat-containing bilateral inguinal hernias. There is mild colonic diverticulosis. There are multilevel degenerative changes of the spine. IMPRESSION: 1. Markedly hypermetabolic nodular opacities in the medial left upper lobe are most consistent with malignancy. Consider tissue sampling for pathologic diagnosis. 2. Indeterminate bilateral lower paratracheal lymph nodes. Subcentimeter left axillary lymph nodes are favored to be reactive. A borderline enlarged left level IIA cervical lymph node is favored to be reactive. 3. No osseous metastatic disease. A well-circumscribed lucent lesion in the proximal right femur at is not FDG-avid, is most consistent with a benign etiology. 4. Moderately increased FDG uptake associated with mild wall thickening in the distal esophagus may be physiologic or inflammatory. Consider upper endoscopy for further evaluation if clinically warranted. 5. Incidental CT findings. [facility]/ Workstation ID: [id number] Dictated by: BEHZAD BARFIELD on TueJan 11, 2018 1:58:38 PM EST Transcribed by: ANN WATTS on TueJan 11, 2018 2:07:06 PM EST Finalized by: BEHZAD BARFIELD on TueJan 11, 2018 2:38:39 PM EST LIPID PROFILE WITH Collected: 12/16/2017 Status: F Source: [employer] REFLEX LDL/D 1:49 PM SYSTEM REPOSITORY TYPE CODE TESTS RESULT OUT OF RANGE REFERENCE UNITS LAB CHOL <=200 mg/dL High CHOLESTEROL 291 LAB TRIG <=150 mg/dL High TRIGLYCERIDES 164 LAB HDL >=40 mg/dL Low HDL 34 LAB VLDL <=30 mg/dL VLDL Abnormal 33 LAB LDL <=100 mg/dL LDL Abnormal (CALCULATED) 224 Performed By: #### LIPRX, PSA-S, A1C #### [facility] [address] [place] [address] PSA SCREEN ONLY Collected: 12/16/2017 Status: F Source: [employer] 1:49 PM SYSTEM REPOSITORY TYPE CODE TESTS RESULT OUT OF RANGE REFERENCE UNITS LAB PSA-S 0.00-4.00 ng/mL Normal PSA SCREEN 1.13 ONLY Performed By: #### MALORIE PSA-S, A1C #### [facility] [address] [place] [address] HBA1C AND EST AVG Collected: 12/16/2017 Status: F Source: [employer] GLUCOSE 1:49 PM SYSTEM REPOSITORY TYPE CODE TESTS RESULT OUT OF RANGE REFERENCE UNITS LAB HBA1C 4.8-6.0 % Normal HGB A1C 5.8 Result Comment: Pre-diabetes reference range 5.7 ? 6.4% The antibody reagent used in the HA1C method will measure any glycosylatedhemoglobin variants that are glycated at the beta-chain N terminus and have epitopes identical to that of HbA1c (amino acid sequence:([id number]). This includes HbS, HbG, HbH, Hb Sukhi, HbC, HbE etc. Other hemoglobinopathies may give incorrect results with this test. These samples must be assayed by an alternate method. LAB EAG 65.0-125.5 mg/dL Normal ESTIMATED AVG 119.8 GLUCOSE Result Comment: The Estimated Average Glucose Calculation (AGC) is based on a formula supported by the [place] [employer]. The AGC is intended to be used as an estimated average of the patient?s glucose for the time frame represented by the HgbA1c. It does not replace the need for an actual glucose test, and should not be used alone to treat patients. Performed By: #### MALORIE PSA-S, A1C #### [facility] [address] [address] CARDIAC PANEL Collected: 12/01/2017 Status: F Source: [employer] 2:57 PM SYSTEM REPOSITORY TYPE CODE TESTS RESULT OUT OF REFERENCE UNITS RANGE LAB CPK 23-215 U/L CPK Normal 115 LAB TROPH 0.00-0.06 ng/mL TROPONIN, Normal HIGH SENSITIVITY <0.03 Result Comment: RISK STRATIFICATION: Low risk 0.00-0.06 Intermediate risk 0.07-<0.1 High risk 0.1-0.6 Suggestive of [place] >.6 LAB CKMBS 0.6-3.5 ng/mL Normal CKMB 2.5 Performed By: #### CARD #### [facility] [address] [place] [address] CBC Collected: 12/01/2017 Status: F Source: [employer] 2:13 PM SYSTEM REPOSITORY TYPE CODE TESTS RESULT OUT OF REFERENCE UNITS RANGE LAB WBCIR 4.50-11.00 10*3/uL WBC Normal 7.21 LAB RBC 4.30-5.70 10*6/uL RBC Normal 4.98 LAB HGB 13.2-17.5 g/dL HEMOGLOBIN Normal 15.7 LAB HCT 39.0-50.0 % HEMATOCRIT Normal 47.0 LAB MCV 83.0-99.0 fL MCV Normal 94.4 LAB MCH 27.0-34.0 pg MCH Normal 31.5 LAB MCHC 31.0-36.0 g/dL MCHC Normal 33.4 LAB RDWSD 38.0-48.0 fL RDW (STD Normal DEVIATION) 45.6 LAB PLT 150-400 10*3/uL PLATELET Normal 301 LAB MPV 8.5-13.0 fL MPV Normal 9.8 LAB PIG % IMMATURE GRANULOCYTES 0.1 LAB AIG 0.00-0.10 10*3/uL IMMATURE Normal GRANULO ABSOLUTE 0.01 LAB SEGR % SEGS 51.4 LAB LYMPR % LYMPHS 38.1 LAB MONOR % MONOS 7.4 LAB EOSR % EOS 2.4 LAB BASOR % BASO 0.6 LAB ASEGR 1.50-7.50 10*3/uL ABSOLUTE Normal NEUTROPHILS 3.71 LAB ALYMR 1.00-4.50 10*3/uL ABSOLUTE Normal LYMPHOCYTES 2.75 LAB AMONR 0.10-0.80 10*3/uL ABSOLUTE Normal MONOCYTES 0.53 LAB AEOSR <=0.60 10*3/uL ABSOLUTE Normal EOSINOPHILS 0.17 LAB ABASR <=0.2 10*3/uL ABSOLUTE Normal BASOPHILS 0.04 Performed By: #### CBC, LIPAS, AMYL, COMPH #### [facility] [address] [place] [address] LIPASE Collected: 12/01/2017 Status: F Source: [employer] 2:13 PM SYSTEM REPOSITORY TYPE CODE TESTS RESULT OUT OF RANGE REFERENCE UNITS LAB LIPAS 23.0-300.0 U/L Normal LIPASE 173.0 Performed By: #### CBC, LIPAS, AMYL, COMPH #### [facility] [address] [place] [address] AMYLASE Collected: 12/01/2017 Status: F Source: [employer] 2:13 PM SYSTEM REPOSITORY TYPE CODE TESTS RESULT OUT OF REFERENCE UNITS RANGE LAB AMYL 15-78 U/L High AMYLASE 91 Performed By: #### CBC, LIPAS, AMYL, COMPH #### [facility] [address] [place] [address] COMPREHENSIVE METABOLIC Collected: 12/01/2017 Status: F Source: [employer] PANEL 2:13 PM SYSTEM REPOSITORY TYPE CODE TESTS RESULT OUT OF REFERENCE UNITS RANGE LAB SOD 139-147 mmol/L Low SODIUM 138 LAB POT 3.6-5.0 mmol/L POTASSIUM Normal 4.6 LAB CL 99-109 mmol/L CHLORIDE Normal 102 LAB CO2 22-32 mmol/L ENZYMATIC Normal CO2 26 LAB BUN 7-25 mg/dL BUN Normal 16 LAB GLU 65-110 mg/dL GLUCOSE Normal 97 LAB CREAT 0.70-1.30 mg/dL CREATININE Normal 1.10 LAB CA 8.3-10.0 mg/dL CALCIUM Normal 9.4 LAB AST 5-40 U/L AST Normal 15 LAB ALT 11-66 U/L ALT Normal 28 LAB ALKP 34-115 U/L ALKALINE Normal PHOSPHATASE 84 LAB TBIL 0.2-1.3 mg/dL TOTAL Normal BILIRUBIN 0.5 LAB ALB 3.5-5.0 g/dL ALBUMIN Normal 4.1 LAB TP 6.3-8.2 g/dL TOTAL Normal PROTEIN 7.6 LAB GFRW >=60 see below GFR Normal NON- >60.00 DANISH Result Comment: Units of measure= mL/min/1.73m2 This eGFR is calculated using the MDRD study equation which has not been validated for use with the elderly (>70yrs), women, patients with serious comorbid conditions, or persons with extremes of body size, muscle mass, or nutritional status. Use of this equation with these patient groups may lead to errors in eGFR. LAB GFRAA >=60 see below Normal GFR >60.00 DANISH Result Comment: Units of measure= mL/min/1.73m2 This eGFR is calculated using the MDRD study equation which has not been validated for use with the elderly (>70yrs), women, patients with serious comorbid conditions, or persons with extremes of body size, muscle mass, or nutritional status. Use of this equation with these patient groups may lead to errors in eGFR. Performed By: #### SHAHBAZ KING AMYL, COMPH #### [facility] [address] [facility] [place] [address] PACEMAKER CHECK Observed: 11/23/2017 Status: F Source: MICHAEL 1:04 PM [facility] REPOSITORY [facility] [address] [place] [address] Pacemaker Check Date of Service: 11/22/17 1522 MR#: [id number] Acct: [id number] Name: KAMERON KOHLI Rep #: [id number] : 1955 From: Nikki Bhatt Age/Sex: 62/M Location: [facility] [place] Status: Signed Billing Codes ICD Device Billing: ICD Dev Prog Evkierra, Single 11/22/17 1523 <Electronically signed by Nikki Bhatt > Date Nikki Bhatt 11/23/17 1304<Electronically signed by Ramin Schmitz MD> Cosigner Signature: Date (if applicable) Ramin Schmitz MD CC: PACEMAKER CHECK Observed: 08/23/2017 Status: F Source: MICHAEL 11:18 AM [facility] REPOSITORY [facility] [address] [place], [place] [address] Pacemaker Check Date of Service: 08/17/17 1556 MR#: [id number] Acct: [id number] Name: KAMERON KOHLI Rep #: [id number] : 1955 From: Nikki Bhatt Age/Sex: 61/M Location: [facility] Status: Signed Comments Summary Comments: Single Chamber ICD Evaluation: See attached scanned engineering programmer report. Interrogation shows no VT/VF episodes since last check 04/08/17. Left pectoral pocket/incision w/o s/s of infection or erosion. Pt offers no cardiac complaints. Presenting rhythm shows NSR @ 84 bpm. SHIPPING TRACK SUPERVISOR=0%. Battery life MOL2. Lead impedance, sensing and pace/sense thresholds remain stable. No parameter changes made. Counters cleared. Next f/u appt scheduled for in 3 mos. Device Device Date Interviewed: 08/17/17 Follow-up Location: in office Interview Reason: routine follow up Supervisor Fertilizer: KAJ Hospitality Name: Vitality 2 Model: T175VR Serial #: [id number] Implant Date: 09/17/10 Year(s): 6 Implant Physician: Dr. Yossi De Anda/[facility] Patient Characteristics Patient Substrate: Ischemic cardiomyopathy, Arrhythmia (cardiac arrest) Ejection fraction %: 25 to 29 (11/2012) By: Echo Underlying rhythm: Sinus rhythm Pacemaker Dependent: No Device Characteristics Device: Single Chamber Type: Implantable defibrillator Remote Follow-Up: No Device Physical Exam Yes Incision well healed Leads Lead #1 Supervisor Fertilizer Lead 1: Guidant Model Lead 1: 0180 Serial# Lead 1: [id number] Date Implanted Lead 1: 09/17/10 Position Lead 1: RV Diagnostics Pacing % RV Pacin Arrhythmias VF Episodes: 0 Fast VT Episodes: 0 Slow VT Episodes: 0 Non-Sust Episodes: 0 Tachy Settings Tachyarrhythmia Detection Ventricular Fibrillation Detect Rate: 210 bpm Faster VT Detect Rate: 185 bpm Tachyarrhythmia Therapies Ventricular Fibrillation Therapy: Shock therapy Initial shock: 29 Joules Final shock: 31 Joules. Fast Ventricular Tachycardia Therapies: Antitachycardia pacing and shock therapy Initial shock: 5 Joules Final shock: 31 Joules. Rufus Settings Bradycardia Mode and Timing Settings Pacemaker Mode: VVI Base Rate: 40 bpm Bradycardia Output and Sensitivity Settings Right Atrium: 0.5 msec, 2.5 volts, 0.5 mV sensitivity. Right Ventricle: 0.4 msec, Automatic1.2 volts. Billing Codes ICD Device Billing: ICD Dev Prog Eval, Single Assessment AND Plan Problems 1. Presence of automatic implantable cardioverter-defibrillator Z95.810 2. Cardiac arrest I46.9 3. Ischemic cardiomyopathy I25.5 08/18/17 0765 <Electronically signed by Nikki Bhatt > Date Nikki Bhatt 08/23/17 1118<Electronically signed by Ramin Schmitz MD> Cosigner Signature: Date (if applicable) Ramin Schmitz MD CC: OFFICE VISIT REPORT Observed: 04/11/2017 Status: F Source: MICHAEL 4:47 PM [address] [place] [address] OFFICE VISIT Date of Service: 04/08/17 MR#: [id number] Acct: [id number] Patient: KAMERON KOHLI Rep #: [id number] : 1955 Provider: Nikki Bhatt Age/Sex: 61/M Location: [facility] Status: Signed Comments Summary Comments: Single Chamber ICD Evaluation: Interrogation shows no VT/VF episodes since last check 01/04/17. Left pectoral pocket/incision w/o s/s of infection or erosion. Pt offers no cardiac complaints. Presenting rhythm shows no NSR @ 80 bpm. SHIPPING TRACK SUPERVISOR=0%. B. V and CT stable. MOL2. Lead impedance, sensing and pace/sense threshold remain stable. No parameter changes made. Counters cleared. Next f/u appt scheduled for in 3 mos. Device Device Date Interviewed: 04/08/17 Follow-up Location: in office Interview Reason: routine follow up Supervisor Fertilizer: KAJ Hospitality Name: Vitality 2 Model: T175VR Serial #: [id number] Implant Date: 09/17/10 Year(s): 6 Implant Physician: Dr. Yossi De Anda/[facility] Patient Characteristics Patient Substrate: Ischemic cardiomyopathy, Arrhythmia (cardiac arrest) Ejection fraction %: 25 to 29 (11/2012) By: Echo Underlying rhythm: Sinus rhythm Pacemaker Dependent: No Device Characteristics Device: Single Chamber Type: Implantable defibrillator Remote Follow-Up: No Device Physical Exam Yes Incision well healed Leads Lead #1 Supervisor Fertilizer Lead 1: Guidant Model Lead 1: 0180 Serial# Lead 1: [id number] Date Implanted Lead 1: 09/17/10 Position Lead 1: RV Diagnostics Pacing % RV Pacin Arrhythmias VF Episodes: 0 Fast VT Episodes: 0 Slow VT Episodes: 0 Non-Sust Episodes: 0 Measurements Battery Voltage (V): 2.57 Charge Time (Sec): 13.6 RV Measurements Signal Amplitude (mV): 17.6 Impedance (Ohms): 538 Threshold Voltage: 0.60 @ PW(ms): 0.5 Shock Impedance (Ohms): 72 Tachy Settings Tachyarrhythmia Detection Ventricular Fibrillation Detect Rate: 210 bpm Faster VT Detect Rate: 185 bpm Tachyarrhythmia Therapies Ventricular Fibrillation Therapy: Shock therapy Initial shock: 29 Joules Final shock: 31 Joules. Fast Ventricular Tachycardia Therapies: Antitachycardia pacing and shock therapy Initial shock: 5 Joules Final shock: 31 Joules. Rufus Settings Bradycardia Mode and Timing Settings Pacemaker Mode: VVI Base Rate: 40 bpm Billing Codes ICD Device Billing: ICD Dev Prog Eval, Single Assessment AND Plan Problems 1. Ischemic cardiomyopathy I25.5 2. Cardiac arrest I46.9 3. Presence of automatic implantable cardioverter-defibrillator Z95.810 Medications Discontinued: 04/10/17 1322 <Electronically signed by Nikki Bhatt > Date Nikki Bhatt 04/11/17 1647<Electronically signed by Ramin Schmitz MD> Cosigner Signature: Date (if applicable) Ramin Schmitz MD CC: ALLERGIES ALLERGIES DATE TYPE / CODE NAME / CODE REACTION SEVERITY SOURCE 03/10/2018 Drug atorvastatin/F0060 Shortness of Unknown Michael Allergy/416 89561(RXNORM) breath Community 359652([facility] ED CT) Repository DRUG SIMVASTATIN Other [facility] INGREDI/419 Three Repository 028045([facility] ED CT) ENCOUNTERS ENCOUNTERS ADMIT/DISCHARGE ACCOUNT NUMBER ADMITTING ENCOUNTER LOCATION SOURCE CLASS 03/23/2018/ [id number] Ambulatory [facility]MS[facility]: Michael 019 [facility] Repository 03/22/2018 [id number] Ambulatory [facility] ding:CVS Repository 03/16/2018/ [id number] Ambulatory [address] ding:CLSP Repository 03/13/2018/ [id number] ELLIE, Ambulatory Building:[facility] [place] [address] [place] Three CHRISTOPHER Repository 03/13/2018/ [id number] Ambulatory Building:[place] [address] L Two Repository 03/10/2018/ [id number] Ambulatory BMSBuilding: [place] 019 [facility]MS[facility] Repository 03/10/2018/ [id number] Ambulatory BMSBuilding: [place] 019 [facility] Repository 03/09/2018/ [id number] Ambulatory Building:[place] [address] [place] Three Repository 02/16/2018/ [id number] Ambulatory BMSBuilding: [place] 018 BMS[facility] Repository 02/08/2018/ [id number] SYSTEM, Ambulatory Building:[place] [address] PROVIDER NOT G Two [place] Repository 02/08/2018/ [id number] SYSTEM, Ambulatory Building:[place] [address] PROVIDER NOT G Two [place] Repository 02/08/2018 [id number] Ambulatory Building:[facility] Three Repository 02/03/2018 [id number] Ambulatory Building:[facility] Repository 01/26/2018 [id number] SONAMUIN, Ambulatory [facility] MARCOS System Repository 01/10/2018/ [id number] Ambulatory Building:[facility] Who What Wear [facility] R One Repository 01/10/2018/ [id number] Ambulatory Building:[place] [address] R One Repository 12/30/2017/ [id number] DEBRUIN INSPECTOR TECHNICIAN, Ambulatory [facility] 018 MARCOS ilding:HCAFA System M Repository 12/16/2017/ [id number] DEBRUIN INSPECTOR TECHNICIAN, Ambulatory [facility] 018 MARCOS ilding:HCALA System B Repository 12/16/2017/ [id number] DEBRUIN INSPECTOR TECHNICIAN, Ambulatory [facility] 018 MARCOS ilding:HCAFA System M Repository 12/01/2017/ [id number] PARNICHYAKORN, Ambulatory [facility] 018 SIRINTRA ilding:HCARA System D Repository 12/01/2017/ [id number] PARNICHYAKORN, Ambulatory [facility] 018 S[place] ilding:HCAUR System G Repository 11/22/2017/ [id number] Ambulatory BMSBuilding: [place] 018 BMS[facility] Repository 08/17/2017/ [id number] Ambulatory BMSBuilding: [place] 018 BMS[facility] Repository 04/08/2017/ [id number] Ambulatory BMSBuilding: [place] 018 [facility]MS[facility] Repository PAYERS PAYERS ENCOUNTER GUARANTOR PAYER SUBSCRIBER SOURCE 03/23/2018 KAMERON Jones Primary KAMERON KOHLI7 [place] Insurance:HUMANA MCFADD[place]OB: [place] PPOPolicy [id number] Hospital [address]Axw: (330) Number: Repository [phone] () [id number] Date:1558-10-49HD[address] [address]FZ: 03/23/2018 Secondary NOT GIVENUNK [place] Insurance:SELF PAY [facility] Number: Effective Repository Date:2018-03-22 03/22/2018 KAMERON Jones Primary KAMERON Rodriguez MCFAPURVAEN7 [place] Insurance:HUMANA MCFADDENDOB: [place] MED[place] PPOPolicy [id number] [place] [address]Yik: (330) Number: Repository [phone] () [id number] Date:1618-91-79GW[address] [address]VV: 03/22/2018 Secondary NOT GIVENUNK [place] Insurance:SELF PAY [facility] Number: Effective Repository Date:2018-03-10 03/16/2018 JESSICA Primary KAMERON Rodriguez MCFADDEN7 [place] Insurance:HUMANA MCFADDENDOB: [facility] MED[place] [facility] [id number] Hospital [address]Tje: (330) Number: Repository [phone] () [id number] Date:2204-46-17AA [address] [place] [address]EX: 03/16/2018 Secondary NOT GIVENUNK [place] Insurance:SELF PAY [facility] Number: Effective Repository Date:2018-02-22 03/13/2018 JESSICA Primary KAMERON Jones [facility] MCFADDENDOB: Insurance:HUMANA MCFADDENDOB: Three Repository [place] MANAGED [id number], [place] [address]Zli: Number: TREVER, [id number] [place] [address]Sml: (HP)Tel: (330) Date:4489-29-84NL [address] ) [phone] (WP) [address] [place] [address] () [address]FO: 03/13/2018 JESSICA Primary KAMERON Jones [facility] Two MCFADDENDOB: Insurance:HUMANA MCFADDENDOB: Repository [place] MANAGED [id number], [place] [address]Svn: Number: TREVER, [id number] [place] [address]Deu: (HP)Tel: (330) Date:6187-21-23PD [address] ) [phone] (WP) [address] [place] [address] (HP) [phone]: 03/10/2018 JESSICA Primary JESSICA [place] MCFADDEN7 [place] Insurance:HUMANA MCFADDENDOB: [facility] [facility] [id number] Hospital [address]Vgy: (330) Number: Repository [phone] () [id number] Date:5708-02-12IC [address] [place] [address]TD: 03/10/2018 Secondary NOT GIVENUNK [place] Insurance:SELF PAY [facility] Number: Effective Repository Date:2018-03-10 03/10/2018 JESSICA Primary JESISCA [place] MCFADDEN7 [place] Insurance:HUMANA MCFADDENDOB: [facility] [facility] [id number] Hospital [address]Zra: (330) Number: Repository [phone] () [id number] Date:0173-20-89IG [address] [place] [phone]: 03/10/2018 Secondary NOT GIVENUNK [place] Insurance:SELF PAY [facility] Number: Effective Repository Date:2018-03-10 03/09/[address] [facility] MCFADDENDOB: Insurance:HUMANA MCFADDENDOB: Three Repository [facility] MANAGED [id number] ST[address], [place] [address]Ajz: Number: TREVER [id number] [place] [address]Dju: ()Tel: 330) Date:9426-27-07BS [phone] () [address] [place] [address] () [address]WY: 02/16/2018 JESSICA Primary JESSICA [place] MCFADDEN7 [place] Insurance:HUMANA MCFADDENDOB: [facility] [facility] [id number] Hospital [address]Rvj: (330) Number: Repository [phone] () [id number] Date:6875-12-56BL [address] [place] [address]LZ: 02/16/2018 Secondary NOT GIVENUNK [place] Insurance:SELF PAY [facility] Number: Effective Repository Date:2018-02-16 02/08/[address] [facility] Two MCFADDENDOB: Insurance:HUMANA MCFADDENDOB: Repository [place] MANAGED [id number], [place] [address]Mbg: Number: TREVER [id number] [place] [address]Kmt: (HP) Date:7366-55-75LE [address] [place] [address] (HP) [phone]: 02/08/2018 JESSICA Primary JESSICA [facility] MCFADDENDOB: Insurance:HUMANA MCFADDENDOB: Repository [place] MANAGED [id number], [place] [address]Nyb: Number: TREVER [id number] [place] [address]Kmg: (HP) Date:7018-44-19LH [address] [place] [address] (HP) [phone]: 02/08/[address] [facility] MCFADDENDOB: Insurance:HUMANA MCFADDENDOB: Three Repository [place] MANAGED [id number], [place] [address]Ika: Number: TREVER [id number] [place] [address]Fey: (HP) Date:4666-77-84AW [address] [place] [address] (HP) [phone]: 02/03/2018 JESSICA Primary JESSICA [facility] MCFADDENDOB: Insurance:MEDICARE MCFADDENDOB: Elfrida [place] HUMANA O [facility] [id number] [place], [place] Number: [facility] [address]Qqy: (943) [id number] [place] [address]Jnl: Repository [phone] () Date:4558-84-36Vnfl Name:CARE () 01/26/2018 JESSICA Primary KAMERON Schaffer [facility] KOHLI SRDOB: Insurance:HumanaPolic MCFADDENDOB: System [place] y Number: [id number] Repository TREVER [id number] [place] [address]Okr: Date:Plan Name:ELBA PERERA, [address] [place] [address] () [place] [address]SF: 01/26/2018 Secondary KAMERON Schaffer [facility] Insurance:Corporate MCFADDENDOB: System [facility] Number: [id number] Repository [id number] [place] Date:Plan Name:JAYCEE [address] [address] [place] [address]GX: 01/10/[address] [facility] One MCFADDENDOB: Insurance:HUMANA MCFADDENDOB: Repository [place] MANAGED [id number] [facility] [place], MEDICAREPolicy [place] [address]Snf: Number: TREVER [id number] [place] [address]Zho: () Date:6130-75-08PT [address] [place] [address] () [address]JI: 01/10/[address] [facility] One MCFADDENDOB: Insurance:HUMANA MCFADDENDOB: Repository [place] MANAGED [id number] [facility] [place], [place]IC[place] [address]Osu: Number: TREVER [id number] [place] [address]Oqb: () Date:0054-47-45XA [address] [place] [address] () [address]ZK: 11/22/2017 JESSICA Primary JESSICA [place] MCFADDEN7 [place] Insurance:HUMANA MCFADDENDOB: [place], [place] MEDICARE [facility] [id number] Hospital [address]Dla: (330) Number: Repository [phone] () [id number] Date:4693-95-54YH [address] [address]EQ: 11/22/2017 Secondary NOT GIVENUNK [place] Insurance:SELF PAY [facility] Number: Effective Repository Date:2017-11-22 08/17/2017 JESSICA Primary JESSICA [place] MCFADDEN7 [place] Insurance:HUMANA MCFADDENDOB: [place] MEDICARE [facility] [id number] Hospital [address]Jve: (330) Number: Repository [phone] () [id number] Date:2202-18-59TM [address] [address]QI: 08/17/2017 Secondary NOT GIVENUNK [place] Insurance:SELF PAY [facility] Number: Effective Repository Date:2017-07-13 04/08/2017 JESSICA Primary KAMERON Rodriguez MCFADDEN7 [place] Insurance:HUMANA MCFADDENDOB: [place] MEDICARE [facility] [id number] Hospital [address]Tmv: (330) Number: Repository [phone] () [id number] Date:4271-10-23JD [address] [address]UJ: 04/08/2017 Secondary NOT GIVENUNK [place] Insurance:SELF PAY [facility] Number: Effective Repository Date:2017-02-05
== END ==
LOC: CVS 06:54
PROVIDERS: Referring Provider Nurse Practitioner Family; Visit Provider Nurse Practitioner Family
DX: I25.10 Atherosclerotic heart disease of native coronary artery without angina pectoris (principal); I25.5 Ischemic cardiomyopathy; Z95.810 Presence of automatic (implantable) cardiac defibrillator; Z95.5 Presence of coronary angioplasty implant and graft
CPT/HCPCS: 78452; 93017; A9500; A4216; J2785

== ENCOUNTER 2018-12-21 11:57 | Emergency (ER) | payer MEDICARE, SELFPAY ==
[2018-11-02 12:51] VITALS: BMI 29.0
[2018-12-21] VITALS (7 sets, daily range): BP systolic 116–132; BP diastolic 61–87; PULSE 79–92; RESP 16–23; TEMP 36.2–36.4; O2SAT 96–98; BMI 27.3
--- NOTE | 2018-12-21 12:36 | RAD_ITS ---
STUDY: X-RAY CHEST REASON FOR EXAM: Male, 63 years old. 3 day history of cough and shortness of breath. TECHNIQUE: PA and lateral views of the chest. COMPARISON: Comparison is made with prior study dated March 10, 2018. FINDINGS: Hyperinflation. Thoracic congestion and increased interstitial markings suggests a mild degree of CHF. There is evidence of a 3.9 cm x 4.6 cm infiltrate/mass in the left suprahilar region. Correlation with a CT scan is recommended for further evaluation. Blunting of both costophrenic angles. A left-sided unipolar pacemaker is seen. Normal mediastinum and donnie. Normal visualized pulmonary arteries. Normal visualized aortic arch and descending thoracic aorta. There are diffuse degenerative changes of the visualized thoracic spine. Normal visualized ribs, clavicles, and shoulders. There is no demonstrated abnormality of the visualized soft tissue structures of the upper abdomen. RAD/Chest PA and Lateral IMPRESSION: Findings in keeping with CHF. 3.9 cm by 4.6 cm infiltrate/mass in the left suprahilar region. Further workup is recommended. Electronically Signed: Mihai Moody, at 13:01 EDT , Service support ,
[2018-12-21 12:59] LABS: Absolute Neutrophil Count 5.3 X10^3/uL (2.0-7.7); Basophil# 0.03 X10^3/uL; Basophil% 0.4 % (0-1); Eosinophil# 0.13 X10^3/uL; Eosinophils% 1.5 % (0-5); Hematocrit 42.9 % (40-54); Hemoglobin 14.1 g/dL (13.0-16.5); Mean Corp Hgb Conc 32.9 g/dL (32-36); Mean Corpuscular Volume 94.3 fL (80-94); Mean Platelet Vol. 11.3 fl (6.2-12.0); Monocyte# 0.81 X10^3/uL; Monocyte% 9.6 % (0-10); NRBC Flagged by Analyzer 0 % (0-5); Neutrophil # 5.28 X10^3/uL (2.7-7.7); Neutrophil % 62.3 % (47-70); POSITIVE COUNT YES; RBC Distribution Width CV 12.8 % (11.6-14.6); RBC Distribution Width SD 44.2 fl (35.1-43.9); Red Blood Count 4.55 M/mm3 (4.6-6.2); White Blood Count 8.5 K/mm3 (4.4-11.0)
[2018-12-21 13:11] LABS: Anion Gap 8 (5-15); BUN 11 mg/dL (7-18); BUN/Creat Ratio 10.2 RATIO (10-20); Calcium,Total 9.2 mg/dL (8.5-10.1); Chloride 106 mmol/L (98-107); Creatinine, Serum 1.08 mg/dL (0.70-1.30); EST Glomerular Filtration Rate 74 mL/min (>60); Est Glom Filt Rate - Afr Amer 89 mL/min (>60); Estimated Creatinine Clearance 75.53 ml/min; Glucose 94 mg/dL (74-106); Potassium 4.3 mmol/L (3.5-5.1); Sodium Level 138 mmol/L (136-145)
[2018-12-21 13:28] LABS: Differential Indicated SCAN CRITERIA MET; Platelet Estimate ADEQUATE (ADEQ)
--- NOTE | 2018-12-21 14:48 | CT_ITS ---
STUDY: CT CHEST WITHOUT CONTRAST REASON FOR EXAM: Male, 63 years old. Cough, shortness of breath, abnormal chest x-ray. RADIATION DOSAGE (If Supplied By Facility): CTDIvol = ( 12.52 ) mGy, DLP = ( 509.99 ) mGycm TECHNIQUE: Transaxial imaging was performed without the administration of intravenous contrast material. Individualized dose optimization techniques were used for this CT. COMPARISON: Chest x-ray earlier today, CT 02/22/2015 FINDINGS: Left subclavian pacemaker. Alveolar density in the perihilar left upper lobe the lungs consistent with pneumonia. Follow-up is recommended to exclude mass. Moderate bilateral pleural effusions with bibasilar atelectasis. Normal heart and pericardium. There are calcifications of the coronary arteries. Normal mediastinum. Normal hilar regions. Normal unenhanced pulmonary arteries. Normal aorta arch and descending thoracic aorta. Normal osseous structures. There is no demonstrated abnormality of the visualized upper abdomen. CT/Chest without Contrast IMPRESSION: 1. Suspect left upper lobe pneumonia. Follow-up is recommended to document resolution to exclude bronchogenic carcinoma. 2. Moderate bilateral pleural effusions with bibasilar atelectasis. Electronically Signed: Jeffrey Lopez MD at 16:18 EDT Tel , Service support ,
[2018-12-21] MEDS: Albuterol 2.5 MG/3 ML VIAL.NEB. INHALATION (15:04)
[2018-12-21] MEDS: Ipratropium/Albuterol Sulfate 3 ML AMPUL.NEB INHALATION (15:04)
[2018-12-21] MEDS: predniSONE 20 MG Tablet 60 MG PO (15:45)
--- NOTE | 2018-12-21 16:42 | ED.DCSUM_ITS ---
History of Present Illness Chief Complaint: Cough Informant: Patient Onset: Days - 3 Context: Gradual Onset Timing: Continuous Narrative: Patient is a 63-year-old male with history of adenocarcinoma of the lung status post radiation in remission presenting with 3 days of worsening cough and shortness of breath. Patient states his cough is been nonproductive. He said no associated fever or chills but has been feeling fatigued. He has been trying to use his albuterol nebulizer at home with no relief of his symptoms. He has associated chest tightness and wheezing. He denies any chest pain, rash, GI symptoms or myalgias. He denies any other complaints at this time. Patient lives in [place] and is visiting family in this area currently. he states he has had pneumonia in the past but it was over a year ago the last time he had it. Past Medical History - Allergies and Home Meds Allergies/Adverse Reactions: Allergies atorvastatin Adverse Reaction (Verified 12/21/18 11:59) Shortness of breath Primary Care Physician: Care Physician,No Primary [Primary Care Provider] - Prior records reviewed: Yes Past Medical History: - - Lung cancer status post radiation, hyperlipidemia, coronary artery disease Surgical History: - - aicd Smoking Status: Current every day smoker - Family History Maternal Family History: Family History (Last Updated 11/02/18 @ 13:22 by KAYLIE Washington) Mother Asthma CHF (congestive heart failure) Hypertension Father CAD (coronary artery disease) Myocardial infarction Sister Asthma Diabetes Thyroid disorder Myocardial infarction Hypertension Cancer Sister Diabetes Thyroid disorder Hypertension Family History: Reports: No pertinent history Paternal Family History: Family History (Last Updated 11/02/18 @ 13:22 by KAYLIE Washington) Mother Asthma CHF (congestive heart failure) Hypertension Father CAD (coronary artery disease) Myocardial infarction Sister Asthma Diabetes Thyroid disorder Myocardial infarction Hypertension Cancer Sister Diabetes Thyroid disorder Hypertension Family History: Reports: Heart Disease Review of Systems All systems negative except as indicated General: Reports: Malaise Respiratory: Reports: Dyspnea, Cough Physical Exam Vital Signs/Narrative: Vital Signs Temp Pulse Resp BP Pulse Ox 12/21/18 15:46 97.2 F L 88 18 127/61 H 97 12/21/18 15:06 85 23 H 12/21/18 14:09 97.3 F L 88 19 H 127/87 H 97 Inital Vital Signs reviewed: Yes General: Well nourished, Well developed, No Acute Distress Head: Normocephalic, Atraumatic Eyes: Perrl, EOMI ENT: Moist mucous membranes, No rhinorrhea Neck: Supple, Nontender Cardiovascular: Regular rate, Regular rhythm, No murmurs Respiratory: No distress, Chest nontender, Wheezing - Diffuse wheezing with tight breath sounds, - - Dry hacking cough during exam. Negative for: Chest tenderness Abdomen: Soft, Nontender, Nondistended, Normal bowel sounds Back: Nontender, Normal Inspection Extremities: Nontender, No edema Skin: Normal color, No rash Neurological: Alert, Oriented x3, Cranial nerves II-XII grossly intact, Normal Strength, Normal Sensation Psychological: Normal affect, Normal Mood Diagnostic/Tx/Re-eval Chest X-Ray - ED: 2 View, Read by ED Physician, Read by Radiologist, Left Infiltrate Clinical Impression(s) from Imaging Studies Chest X-Ray 12/21/18 12:36 IMPRESSION: Findings in keeping with CHF. 3.9 cm by 4.6 cm infiltrate/mass in the left suprahilar region. Further workup is recommended. Electronically Signed: Mihai Moody, at 13:01 EDT , Service support , Chest CT 12/21/18 14:48 IMPRESSION: 1. Suspect left upper lobe pneumonia. Follow-up is recommended to document resolution to exclude bronchogenic carcinoma. 2. Moderate bilateral pleural effusions with bibasilar atelectasis. Electronically Signed: Jeffrey Lopez MD at 16:18 EDT Tel , Service support , Laboratory Data 12/21/18 12/21/18 12:50 12:50 WBC 8.5 RBC 4.55 L Hgb 14.1 Hct 42.9 MCV 94.3 H MCH 31.0 MCHC 32.9 RDW Std Deviation 44.2 H RDW Coeff of Maddie 12.8 Plt Count MPV 11.3 Immature Gran % (Auto) 0.200 Neut % (Auto) 62.3 Lymph % (Auto) 26.0 [place] % (Auto) 9.6 Eos % (Auto) 1.5 Baso % (Auto) 0.4 Absolute Neuts (auto) 5.3 Absolute Lymphs (auto) 2.20 Nucleated RBC % 0 Platelet Estimate ADEQUATE Sodium 138 Potassium 4.3 Chloride 106 Carbon Dioxide 24.0 Anion Gap 8 BUN 11 Creatinine 1.08 Estim Creat Clear Calc 75.53 Est GFR (MDRD) Af Amer 89 Est GFR (MDRD) Non-Af 74 BUN/Creatinine Ratio 10.2 Glucose 94 Calcium 9.2 - Medical Decision Making Patient is evaluated for 3 days of cough and shortness of breath. Presentation is concerning for COPD exacerbation versus pneumonia. Even stacked breathing treatments with no significant improvements in his cough we does have improvem ent of his wheezing. Patient is not hypoxic while in the emergency room. He is ambulated on room air and is also not hypoxic. Chest x-ray is concerning for infiltrate versus mass. Patient does admit to a history of lung cancer so CT was obtained to better characterize it. Patient does not have a leukocytosis and has a normal CBC/BMP. CT does confirm that he has an infiltrate. He will be started on doxycycline as well as steroids because of his wheezing. First doses are given in the emergency room. Patient states he has albuterol at home to use. Patient is counseled on signs and symptoms of heart return to the emergency room. He verbalizes agreement understand this plan. Discharged home in stable condition. ED Disposition - Plan for ED Patient: Disposition: Home or Assisted Living Diagnosis: Left upper lobe pneumonia Instructions: PNEUMONIA (Adult) Prescriptions: Prednisone [Deltasone] 40 mg PO DAILY #8 tab Prescription Printed Doxycycline 100 mg PO BID #14 cap Prescription Printed Referrals: Care Physician,No Primary [Primary Care Provider] - Additional Instructions: Please make sure he follow-up with your primary care doctor next week for reevaluation. Return if you have worsening symptoms or you do not feel improved after 48 hours. Drink plenty of fluids.
[2018-12-21] MEDS: Doxycycline 100 MG CAPSULE PO (17:19)
== END 2018-12-21 17:29 | disposition home or self-care (01) ==
PROVIDERS: Emergency Provider Emergency Medicine
DX: J18.9 Pneumonia, unspecified organism (principal); I25.10 Atherosclerotic heart disease of native coronary artery without angina pectoris; E78.5 Hyperlipidemia, unspecified; F17.200 Nicotine dependence, unspecified, uncomplicated; Z79.899 Other long term (current) drug therapy; Z85.118 Personal history of other malignant neoplasm of bronchus and lung
CPT/HCPCS: 71046; 71250; 80048; 85025; 94640; 99283

== ENCOUNTER → 2020-03-25 13:25 | Outpatient (CLI) | payer MEDICARE, SELFPAY ==
[2020-02-26 10:01] VITALS: BMI 27.8
--- NOTE | 2020-03-25 13:36 | ECHOCS_ITS ---
Reason For Study: CHF Procedure This was a 2D Doppler, Color Flow transthoracic echocardiogram. The study was technically difficult. Due to lung disease. Contrast injection was performed. Exam performed in department. Left Ventricle Severely dilated left ventricle. Severe segmental systolic dysfunction (see wall motion). The estimated ejection fraction is 20 %. Stage 3 diastolic dysfunction. Britton : Akinetic. Anterior [place]on : Akinetic. Lateral-Basal: Normal. Basal anteroseptal: Hypokinetic. Mid-Anterior : Akinetic. The rest of the wall segments are hypokinetic. Right Ventricle Normal RV size. ICD or pacer leads identified within the right ventricle. Normal systolic function. Atria Normal left atrium. Normal right atrium. Bubble contrast study negative for right to left interatrial shunt. Mitral Valve Normal mitral valve. Mild (1+) eccentric mitral valve insufficiency. Tricuspid Valve Normal tricuspid valve. Moderate (2+) tricuspid valve insufficiency. Pulmonary artery systolic pressure is 50 mmHg. Moderate pulmonary hypertension. Aortic Valve Normal aortic valve. Pulmonic Valve The pulmonic valve is not well visualized. Great Vessels Normal aortic root. The pulmonary artery is normal size. Normal inferior vena cava. Pericardium/Pleural No pericardial effusion. Medication 22 gauge I.V. with prn adaptor inserted into left arm. Performed a rapid injection of agitated mix of 9 cc saline and 1cc air to assess for atrial septal defect. Diluted definity 4.0ml given slow IV push to enhance endocardial definition. MMode/2D Measurements & Calculations LVIDd: 7.0 cm IVSd: 0.93 cm Ao root diam: 3.3 cm LVIDs: 6.1 cm LVPWd: 1.0 cm RVDd: 3.5 cm FS: 13.0 % LAV(MOD-bp): 63.8 ml LA A4 area: 19.6 cm2 LA dimension(2D): 4.3 cm LAV(MOD-bp) Indexed: 30.7 ml/m2 LAV(MOD-sp2): 62.9 ml LAV(MOD-sp4): 62.1 ml RA A4 area: 12.3 cm2 Time Measurements MV dec time: 0.09 sec Doppler Measurements & Calculations MV E max rachid: 91.5 cm/sec Ao V2 max: 78.1 cm/sec LV V1 max: 73.7 cm/sec MV A max rachid: 33.9 cm/sec Ao max P.4 mmHg LV V1 max P.2 mmHg MV E/A: 2.7 PA V2 max: 73.1 cm/sec TR max rachid: 342.3 cm/sec TR max P.9 mmHg Interpretation Summary Severe segmental systolic dysfunction (see wall motion). Bubble contrast study negative for right to left interatrial shunt. Severely dilated left ventricle. The estimated ejection fraction is 20 %. Pulmonary artery systolic pressure is 50 mmHg. Moderate pulmonary hypertension. Stage 3 diastolic dysfunction. Contrast injection was performed. Ordering Physician: Devaughn Murillo Referring Physician: Aurora Solo Performed By: Sofía Scott RDCS, RVT
[2020-03-25 15:40] LABS: AST(SGOT) 16 U/L (15-37); Alanine Aminotransfer ALT/SGPT 30 U/L (16-61); Alkaline Phosphatase 105 U/L (45-117); Anion Gap 1 (5-15); BUN 15 mg/dL (7-18); BUN/Creat Ratio 12.5 RATIO (10-20); Bilirubin, Direct 0.17 mg/dL (0.00-0.30); Calcium,Total 9.5 mg/dL (8.5-10.1); Chloride 106 mmol/L (98-107); Cholesterol 301 mg/dL (200); EST Glomerular Filtration Rate 65 mL/min (>60); Est Glom Filt Rate - Afr Amer 79 mL/min (>60); Globulin 4.2 g/dL (2.2-4.2); Glucose 91 mg/dL (74-106); High Density Lipoprotein 34 mg/dL; Potassium 4.3 mmol/L (3.5-5.1); Protein, Total 8.2 g/dL (6.4-8.2); Sodium Level 138 mmol/L (136-145); Triglycerides 123 mg/dL; Very Low Density Lipoprotein 25 mg/dL (5-40)
== END ==
LOC: CVS 13:27
PROVIDERS: PCP Nurse Practitioner Family; Referring Provider Nurse Practitioner Family; Visit Provider Nurse Practitioner Family
DX: I25.10 Atherosclerotic heart disease of native coronary artery without angina pectoris (principal); I25.5 Ischemic cardiomyopathy; I47.2 Ventricular tachycardia; E78.5 Hyperlipidemia, unspecified; Z79.899 Other long term (current) drug therapy; Z95.5 Presence of coronary angioplasty implant and graft; Z95.810 Presence of automatic (implantable) cardiac defibrillator
CPT/HCPCS: 36415; 80048; 80061; 80076; 93306; Q9957; A4216; C8929

== ENCOUNTER 2020-08-07 18:33 | Inpatient (IN) | payer MEDICARE, SELFPAY ==
[2020-02-26 10:01] VITALS: BMI 27.8
[2020-08-07 18:35] VITALS: BP 118/74; PULSE 84; RESP 20; TEMP 36.4; O2SAT 99; BMI 26.9
--- NOTE | 2020-08-07 19:00 | EDS_ITS ---
HPI HPI - GI History of Present Illness Chief Complaint: Abd Pain Detail of Chief Complaint: Patient presents with abdominal bloating as well as edema and constipation Informant: patient Narrative Narrative: Patient complains of not feeling well for about a week. Patient states that he recently returned from [place] where he was visiting his brother. Patient drove there and back. Patient states that he has not had a bowel movement in over a week. Patient states he is not making much urine despite taking Lasix. Feels bloated and distended and edematous in the lower extremities. Patient also at times feels short of breath with lying flat. Patient has history of prior stroke, coronary artery disease, and ICD placement. Prior similar symptoms: No PFSH [facility] Medical History (Updated 08/07/20 @ 21:[address] Joni Butcher DO) Atherosclerosis of [place] coronary artery of [place] heart without angina pectoris Cardiac arrest CVA (cerebral vascular accident) Ischemic cardiomyopathy (12/2009) Lung cancer, upper lobe Nicotine dependence Non-sustained ventricular tachycardia Old anterior wall myocardial infarction Peripheral vascular occlusive disease Home Medications furosemide 20 mg tablet 20 mg PO DAILY #30 tab 04/24/19 [Rx Last Taken Unknown] albuterol sulfate 90 mcg/actuation aerosol inhaler 2 inh INHALATION Q6H PRN 07/10/19 [History Last Taken Unknown] aspirin 325 mg tablet 325 mg PO DAILY 02/26/20 [History Last Taken Unknown] coenzyme Q10 10 mg capsule 10 mg PO DAILY cap 02/26/20 [History Last Taken Unknown] carvedilol 3.125 mg tablet 6.25 mg PO BID tab 03/25/20 [History Last Taken Unknown] rosuvastatin 10 mg tablet 10 mg PO .QODAY #45 tab 03/25/20 [Rx Last Taken Unknown] Allergy/AdvReac Type Severity Reaction Status Date / Time atorvastatin AdvReac Shortness Verified 08/07/20 18:34 of breath Family History Mother Asthma CHF (congestive heart failure) Hypertension Father CAD (coronary artery disease) Age of 55 Myocardial infarction Sister Asthma Diabetes Thyroid disorder Myocardial infarction Hypertension Cancer Thyroid Sister Diabetes Thyroid disorder Hypertension Surgical History Hernia History of appendectomy History of coronary artery stent placement (01/20/10) History of implantable cardiac defibrillator (ICD) (03/16/18) Social History (Updated 02/26/20 @ 12:53 by Devaughn Murillo [employer]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, 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) Smoking Status: Current every day smoker tobacco type: cigarettes ROS ROS ED Constitutional Constitutional ED: Reports systems reviewed and no addt'l complaints, except as documented; Denies body ache(s), change in weight or chills Eyes Eyes: Denies acute decrease in peripheral vision, change in vision, double vision or loss of vision ENT ENT ED: Reports none; Denies ear pain, lip swelling, loss taste/smell, neck pain, otalgia or sore throat Cardiovascular Cardiovascular: Reports none; Denies abdominal pain, chest pain with activity, leg edema, lightheadedness, palpitations, rapid heart rate or syncope Respiratory/Chest Respiratory/Chest: Reports none and dyspnea; Denies change in mental status, dry cough, hemoptysis, shortness of breath at rest or shortness of breath with exe rtion Gastrointestinal Gastrointestinal: Reports none, abdominal pain and constipation; Denies change i n stool character, diarrhea, hematemesis, hematochezia, melena, rectal bleeding or vomiting Genitourinary Genitourinary ED: Reports none and other Details: Decreased urine production ; Denies abdominal discomfort, anuria, dysuria, genital pain or polyuria Musculoskeletal Musculoskeletal: Reports none; Denies arthralgias, back pain, difficulty walking, extremity pain, muscle weakness or myalgias Integumentary Reports none; Denies abscess or rash Neurologic Neurologic: Reports none; Denies abnormal gait, confusion, focal weakness, frequent falls, headache(s), loss of vision, numbness, paresthesias, radicular pain, vertigo or weakness Psychiatric Psychiatric: Reports systems reviewed and no addt'l complaints, except as documented and none; Denies behavioral changes, confusion, difficulty concentrating, hallucinations, suicidal ideation, tactile hallucinations or visual hallucinations Endocrine Endocrinology: Denies none, cold intolerance, excessive sweating, fatigue or heat intolerance Hematologic/Lymphatic Hematologic/Lymphatic: Reports none; Denies anemia, easy bleeding or easy bruising Allergic/Immunologic Allergic/Immunologic ED: Denies as per HPI, none, lip swelling, mouth swelling, throat swelling, tongue swelling or hives EXAM Physical Exam Const Vital Signs: 08/07/20 18:35 08/07/20 18:55 08/07/20 21:30 Temperature 97.6 F L Temperature Source Oral Pulse Rate 84 76 Respiratory Rate 20 H 18 Respiratory Effort Normal Non-Labored Blood Pressure 118/74 119/73 Blood Pressure Mean 88 88 Pulse Ox 99 99 Oxygen Delivery Method Room Air Room Air Positive well nourished and well developed General Appearance ED: well developed and NAD HEENT Reports TM's clear and moist mucous membranes normocephalic and atraumatic; Negative for trauma or tenderness Tympanic Membrane ED: Yes TM's clear Eyes PERRL and EOMs intact bilaterally General Eye ED: Negative for pale conjunctiva or scleral icterus Neck no lymphadenopathy, supple and no JVD General: Negative for tenderness Chest Wall inspection of chest normal and palpation of chest normal Chest: Negative for tenderness Resp normal respiratory effort and clear to auscultation bilaterally Effort and Inspection: Negative for respiratory distress or pain with movement Auscultation: Negative for rhonchi, wheezes or diminished lung sounds Cardio regular rate, regular rhythm, S1 normal heart sound, S2 normal heart sound and no murmurs Peripheral Pulses: pulses 2+ throughout GI normal to inspection, nondistended, normoactive bowel sounds, soft to palpation and no masses Inspection: abdominal distention Palpation: tender suprapubic Back/Spine no CVA tenderness and no thoracic nor lumbar tenderness Extremity normal to inspection General Extremety ED: Yes edema General Extremity: edema Neuro oriented x3, CN's II-XII intact bilaterally, no sensory deficits noted and gait normal Sensorium / Orientation: awake, alert, oriented to person, oriented to place and oriented to time Motor Exam: strength 5/5 throughout and strength abnormal Psych mental status grossly normal Skin no rashes or lesions noted and no wounds MDM MDM MDM Narrative Medical decision making narrative: Patient has gained about 6 pounds in the last week. He is edematous with fluid overload noted. Patient with left pleural effusion and pulmonary congestion. Has got ascites in the abdomen. He was given Lasix 80 mg IV. Case will be discussed with hospitalist evaluate patient for admission for CHF exacerbation. Lab Data Attestation: I reviewed the patient's lab results. Labs: Laboratory Results - last 24 hr 08/07/20 08/07/20 08/07/20 18:51 18:51 18:51 WBC 7.8 RBC 4.98 Hgb 15.4 Hct 47.8 MCV 96.0 H MCH 30.9 MCHC 32.2 RDW Std Deviation 48.3 H RDW Coeff of Maddie 13.7 Plt Count 264 MPV 10.6 Immature Gran % (Auto) 0.400 Neut % (Auto) 57.9 Lymph % (Auto) 28.6 [place] % (Auto) 10.3 H Eos % (Auto) 2.3 Baso % (Auto) 0.5 Absolute Neuts (auto) 4.5 Absolute Lymphs (auto) 2.23 Nucleated RBC % 0 D-Dimer Quant (PE/DVT) Sodium 139 Potassium 4.0 Chloride 105 Carbon Dioxide 27.0 Anion Gap 7 BUN 19 H Creatinine 1.25 Estim Creat Clear Calc 64.42 Est GFR (MDRD) Af Amer 75 Est GFR (MDRD) Non-Af 62 BUN/Creatinine Ratio 15.2 Glucose 99 Lactic Acid Calcium 9.3 Total Bilirubin 1.50 H AST 26 ALT 44 Alkaline Phosphatase 186 H B-Natriuretic Peptide 1254.0 H Total Protein 7.2 Albumin 3.5 Globulin 3.7 Albumin/Globulin Ratio 0.9 Urine Color Urine Clarity Urine pH Ur Specific [place] Urine Protein Urine Glucose (UA) Urine Ketones Urine Occult Blood Urine Nitrite Urine Bilirubin Urine Urobilinogen Ur Leukocyte Esterase Urine RBC Urine WBC Ur Squamous Epith Cells Urine Bacteria Urine Mucus 08/07/20 08/07/20 08/07/20 18:51 19:03 19:15 WBC RBC Hgb Hct MCV MCH MCHC RDW Std Deviation RDW Coeff of Maddie Plt Count MPV Immature Gran % (Auto) Neut % (Auto) Lymph % (Auto) [place] % (Auto) Eos % (Auto) Baso % (Auto) Absolute Neuts (auto) Absolute Lymphs (auto) Nucleated RBC % D-Dimer Quant (PE/DVT) 1.60 H* Sodium Potassium Chloride Carbon Dioxide Anion Gap BUN Creatinine Estim Creat Clear Calc Est GFR (MDRD) Af Amer Est GFR (MDRD) Non-Af BUN/Creatinine Ratio Glucose Lactic Acid 1.8 Calcium Total Bilirubin AST ALT Alkaline Phosphatase B-Natriuretic Peptide Total Protein Albumin Globulin Albumin/Globulin Ratio Urine Color Yellow Urine Clarity Clear Urine pH 6.0 Ur Specific [place] 1.015 Urine Protein 15 H Urine Glucose (UA) Normal Urine Ketones Negative Urine Occult Blood Negative Urine Nitrite Negative Urine Bilirubin Negative Urine Urobilinogen 1 H Ur Leukocyte Esterase Negative Urine RBC 0 SEEN Urine WBC 0 SEEN Ur Squamous Epith Cells 0 SEEN Urine Bacteria RARE Urine Mucus 0 SEEN Radiography Diagnostic Testing: Radiology Impression Abdomen/Pelvis CT 08/07/20 19:53 IMPRESSION: 1. Moderate amount of abdominal and pelvic ascites 2. Mild interstitial edema is present in the lungs. A small cyst is present in the right lower lobe. Mild pulmonary edema and basilar atelectasis is present in the left lower lobe which is associated with a small left pleural effusion. Left chest cardiac device and right heart leads noted. Electronically Signed: Pietro Licea MD at 21:10 EDT , Service support , Chest CTA 08/07/20 19:53 IMPRESSION: Mild interstitial and emphysematous changes.. Moderate-sized left pleural effusion. There is suprahilar atelectasis or infiltrate in left upper lobe. There is no evidence for pulmonary embolus however there does appear to be focal narrowing of one of the proximal left upper lobe branches raising question of suprahilar tumor encasement. Clinical correlation is recommended Mild ascites noted within the abdomen Electronically Signed: Rodolfo Mccracken MD at 21:41 EDT , Service support , EKG Initial EKG: Attestation: I personally reviewed and interpreted this EKG as follows: Comments: Sinus rhythm with a ventricular rate of 75 bpm with a left bundle branch block which appears to be new when compared with prior EKG Prior EKG tracings: available for review Prior: Changed Discharge Plan Dx/Rx/DC Orders Clinical Impression: CHF (congestive heart failure), Constipation Disposition Disposition: Acute Care Hospital [facility]
[2020-08-07 19:10] LABS: Absolute Lymphocyte Count 2.23 X10^3/uL (0.83-4.51); Absolute Neutrophil Count 4.5 X10^3/uL (2.0-7.7); Basophil# 0.04 X10^3/uL; Basophil% 0.5 % (0-1); Eosinophil# 0.18 X10^3/uL; Eosinophils% 2.3 % (0-5); Hematocrit 47.8 % (40-54); Hemoglobin 15.4 g/dL (13.0-16.5); Lymphocyte # 2.23 X10^3/ul (0.83-4.51); Lymphocyte % 28.6 % (19-41); Mean Corp Hgb Conc 32.2 g/dL (32-36); Mean Corpuscular Hgb 30.9 pg (27.0-32.0); Mean Platelet Vol. 10.6 fl (6.2-12.0); Monocyte% 10.3 % (0-10); NRBC Flagged by Analyzer 0 % (0-5); Neutrophil # 4.51 X10^3/uL (2.7-7.7); Neutrophil % 57.9 % (47-70); Platelet Count 264 K/mm3 (150-450); RBC Distribution Width CV 13.7 % (11.6-14.6); RBC Distribution Width SD 48.3 fl (35.1-43.9); Red Blood Count 4.98 M/mm3 (4.6-6.2); White Blood Count 7.8 K/mm3 (4.4-11.0)
[2020-08-07 19:20] LABS: Mucous, Urine 0 SEEN /hpf (<or=2+); Red Blood Cells-Urine 0 SEEN /hpf (0-5); Squamous Epithelial Cells - UA 0 SEEN /hpf (0-5); White Blood Cells 0 SEEN /hpf (0-5)
[2020-08-07 19:21] LABS: Color, Urine Yellow (Yellow); Glucose, Dipstick Normal (Normal); Ketone-Dipstick Negative (Negative); Leukocyte Esterase-Dipstick Negative /ul (Negative); Nitrite-Dipstick Negative (Negative); Occult Blood-Urine Negative /ul (Negative); Protein-Dipstick 15 mg/dl (Negative); Specific Gravity, Urine 1.015 (1.002-1.030); Urine Bilirubin Dipstick Negative (Negative); Urine Clarity Clear (Clear); Urine Urobilinogen 1 mg/dl (Normal)
[2020-08-07 19:24] LABS: ALB/GLOB Ratio 0.9 RATIO (0.9-2.4); AST(SGOT) 26 U/L (15-37); Alanine Aminotransfer ALT/SGPT 44 U/L (16-61); Albumin, Serum 3.5 g/dL (3.2-5.0); Alkaline Phosphatase 186 U/L (45-117); Anion Gap 7 (5-15); BUN 19 mg/dL (7-18); BUN/Creat Ratio 15.2 RATIO (10-20); Calcium,Total 9.3 mg/dL (8.5-10.1); Chloride 105 mmol/L (98-107); Creatinine, Serum 1.25 mg/dL (0.70-1.30); EST Glomerular Filtration Rate 62 mL/min (>60); Est Glom Filt Rate - Afr Amer 75 mL/min (>60); Estimated Creatinine Clearance 64.42 ml/min; Globulin 3.7 g/dL (2.2-4.2); Glucose 99 mg/dL (74-106); Protein, Total 7.2 g/dL (6.4-8.2); Sodium Level 139 mmol/L (136-145)
[2020-08-07 19:27] LABS: Bacteria RARE /hpf (None Seen)
[2020-08-07 19:38] LABS: Lactic Acid 1.8 mmol/L (0.4-1.9)
--- NOTE | 2020-08-07 19:53 | CT_ITS ---
STUDY: CT ABDOMEN AND PELVIS WITH CONTRAST REASON FOR EXAM: Male, 64 years old. abdominal pain RADIATION DOSAGE (If Supplied By Facility): CTDIvol = ( 18.48 ) mGy, DLP = ( 1694.44 ) mGycm TECHNIQUE: Transaxial images were obtained from the dome of the diaphragm to the symphysis pubis without oral contrast. IV 100mL Isovue-370 was administered. Sagittal and coronal images were reconstructed. Individualized dose optimization techniques were used for this CT. COMPARISON: None. FINDINGS: Mild interstitial edema is present in the lungs. A small cyst is present in the right lower lobe. Mild pulmonary edema and basilar atelectasis is present in the left lower lobe which is associated with a small left pleural effusion. Left chest cardiac device and right heart leads noted. A moderate amount of ascites is seen throughout the abdomen and pelvis. There is decreased attenuation of the liver consistent with steatosis. The gallbladder is contracted. Sinusoidal enhancement of the spleen noted. Possible small cysts seen in the midline aspect of the spleen.. Normal pancreas. Normal bilateral adrenal glands. Normal right kidney. Small concave cortical defect seen in the midpole of the left kidney could be related to old trauma or a ruptured cyst or similar process. Normal visualized stomach. Normal small intestine. Normal colon. The appendix is visualized and appears normal. There is diffuse atherosclerotic calcification of the abdominal aorta with elongation and tortuosity, but without a demonstrated aneurysm. Normal inferior vena cava. Normal retroperitoneum. A catheter and balloon are present in the bladder lumen. Normal abdominal wall. There are diffuse degenerative changes of the visualized lumbar spine. CT/Abdomen/Pelvis W IV Cont ONLY IMPRESSION: 1. Moderate amount of abdominal and pelvic ascites 2. Mild interstitial edema is present in the lungs. A small cyst is present in the right lower lobe. Mild pulmonary edema and basilar atelectasis is present in the left lower lobe which is associated with a small left pleural effusion. Left chest cardiac device and right heart leads noted. Electronically Signed: Pietro Licea MD at 21:10 EDT , Service support ,
--- NOTE | 2020-08-07 19:53 | CT_ITS ---
STUDY: CTA CHEST REASON FOR EXAM: Male, 64 years old. dyspnea, elevated d-dimer RADIATION DOSAGE (If Supplied By Facility): CTDIvol = ( 18.48 ) mGy, DLP = ( 1694.44 ) mGycm TECHNIQUE: The examination was performed with the intravenous administration of IV 100mL Isovue-370. Post-processing of the angiographic images was performed, with multiplanar reformation and 3D reconstruction. Individualized dose optimization techniques were used for this CT. COMPARISON: 12/21/2018 FINDINGS: Normal enhancement of the main pulmonary artery and right and left pulmonary arteries. Normal enhancement of the bilateral peripheral pulmonary arteries. There is no demonstrated pulmonary embolism. Mild atherosclerotic changes of the aorta without evidence for aneurysm. There is no demonstrated aortic dissection. The heart is normal size and there is mild coronary artery calcification Normal mediastinum. Normal hilar regions. Normal visualized trachea and bronchi. The lungs are well expanded. Mild diffuse interstitial thickening with scattered emphysematous changes. There is suprahilar atelectasis or infiltrate in left upper lobe however there does appear to be some mild narrowing of one of the proximal branches of left pulmonary artery raising question of associated left suprahilar obstructing neoplasm.. There is moderate-sized left pleural effusion. Normal chest wall structures. Dorsal spine demonstrates degenerative change Mild ascites noted within the upper abdomen.. CT/CTA Chest W/WO Contrast IMPRESSION: Mild interstitial and emphysematous changes.. Moderate-sized left pleural effusion. There is suprahilar atelectasis or infiltrate in left upper lobe. There is no evidence for pulmonary embolus however there does appear to be focal narrowing of one of the proximal left upper lobe branches raising question of suprahilar tumor encasement. Clinical correlation is recommended Mild ascites noted within the abdomen Electronically Signed: Rodolfo Mccracken MD at 21:41 EDT , Service support ,
[2020-08-07 21:30] VITALS: BP 119/73; PULSE 76; RESP 18; O2SAT 99
--- NOTE | 2020-08-07 21:53 | EKG12_ITS ---
Test Reason : DYSRHYTHMIA Blood Pressure : / mmHG Vent. Rate : 075 BPM Atrial Rate : 075 BPM P-R Int : 218 ms QRS Dur : 148 ms QT Int : 432 ms P-R-T Axes : 075 -40 094 degrees QTc Int : 482 ms Sinus rhythm with 1st degree A-V block Possible Left atrial enlargement Left axis deviation Left bundle branch block Abnormal ECG Confirmed by SANTIAGO CALI, JAZLYN ([id number]), editor department GAB CONTRERAS ([id number]) on 08/11/2020 1:54:26 PM Referred By: JOSE M Confirmed By:JAZLYN HENDERSON MD
[2020-08-07] MEDS: Furosemide 100 MG/10 ML Vial 80 MG IV (21:57)
--- NOTE | 2020-08-07 22:11 | HP.PCM.HOS_ITS ---
HPI - General General Date of Admission: 08/07/20 HPI Narrative KAMERON KOLHI, is a 64 M with a significant history of tobacco abuse; lung cancer status post radiation; and heart failure with reduced ejection fraction who presents to the emergency department with 1 week history of progressively worsening swelling. He reports abdominal bloating and swelling in bilateral lower extremity. Associated with his symptoms is shortness of breath; paroxysmal nocturnal dyspnea and orthopnea. Reportedly he has gained about 4 pounds in 1 week. His has been doubling his Lasix for him. However he has not realized any improvement from the double dose of Lasix. [facility] Medical History Atherosclerosis of [place] coronary artery of [place] heart without angina pectoris Cardiac arrest COPD (chronic obstructive pulmonary disease) Coronary artery disease CVA (cerebral vascular accident) Hypertension ICD (implantable cardioverter-defibrillator) in place Ischemic cardiomyopathy (12/2009) Lung cancer, upper lobe Nicotine dependence Non-sustained ventricular tachycardia Old anterior wall myocardial infarction Peripheral vascular occlusive disease Home Medications furosemide 20 mg tablet 20 mg PO DAILY #30 tab 04/24/19 [Rx Last Taken Unknown] albuterol sulfate 90 mcg/actuation aerosol inhaler 2 inh INHALATION Q6H PRN 07/10/19 [History Last Taken Unknown] aspirin 325 mg tablet 325 mg PO DAILY 02/26/20 [History Last Taken Unknown] coenzyme Q10 10 mg capsule 10 mg PO DAILY cap 02/26/20 [History Last Taken Unknown] carvedilol 3.125 mg tablet 6.25 mg PO BID tab 03/25/20 [History Last Taken Unknown] rosuvastatin 10 mg tablet 10 mg PO .QODAY #45 tab 03/25/20 [Rx Last Taken Unknown] Allergy/AdvReac Type Severity Reaction Status Date / Time atorvastatin AdvReac Shortness Verified 08/07/20 18:34 of breath Family History Mother Asthma CHF (congestive heart failure) Hypertension Father CAD (coronary artery disease) Age of 55 Myocardial infarction Sister Asthma Diabetes Thyroid disorder Myocardial infarction Hypertension Cancer Thyroid Sister Diabetes Thyroid disorder Hypertension Surgical History Hernia History of appendectomy History of coronary artery stent placement (01/20/10) History of implantable cardiac defibrillator (ICD) (03/16/18) Social History Smoking Status: Current every day smoker tobacco type: cigarettes ROS ROS Narrative 12 point review of system is negative except as stated in HPI. Vital Signs Vital Signs Vital Signs: 08/07/20 18:35 08/07/20 18:55 08/07/20 21:30 Temperature 97.6 F L Temperature Source Oral Pulse Rate 84 76 Respiratory Rate 20 H 18 Respiratory Effort Normal Non-Labored Blood Pressure 118/74 119/73 Blood Pressure Mean 88 88 Pulse Ox 99 99 Oxygen Delivery Method Room Air Room Air Weight Weight: 87.4 kg Body Mass Index (BMI) 26.9 Physical Exam Narrative Alert and oriented x3 Nontraumatic; normocephalic Lung clear to auscultate Heart sounds S1-S2. No murmur, gallop or rubs. Abdomen bowel sounds present soft, nontender nondistended Extremity: Bilateral feet with 3+ edema. Results Lab / Micro Data Result Diagrams: 08/07/20 18:51 08/07/20 18:51 Labs: Laboratory Results - last 24 hr 08/07/20 08/07/20 08/07/20 18:51 18:51 18:51 WBC 7.8 RBC 4.98 Hgb 15.4 Hct 47.8 MCV 96.0 H MCH 30.9 MCHC 32.2 RDW Std Deviation 48.3 H RDW Coeff of Maddie 13.7 Plt Count 264 MPV 10.6 Immature Gran % (Auto) 0.400 Neut % (Auto) 57.9 Lymph % (Auto) 28.6 [place] % (Auto) 10.3 H Eos % (Auto) 2.3 Baso % (Auto) 0.5 Absolute Neuts (auto) 4.5 Absolute Lymphs (auto) 2.23 Nucleated RBC % 0 D-Dimer Quant (PE/DVT) Sodium 139 Potassium 4.0 Chloride 105 Carbon Dioxide 27.0 Anion Gap 7 BUN 19 H Creatinine 1.25 Estim Creat Clear Calc 64.42 Est GFR (MDRD) Af Amer 75 Est GFR (MDRD) Non-Af 62 BUN/Creatinine Ratio 15.2 Glucose 99 Lactic Acid Calcium 9.3 Total Bilirubin 1.50 H AST 26 ALT 44 Alkaline Phosphatase 186 H B-Natriuretic Peptide 1254.0 H Total Protein 7.2 Albumin 3.5 Globulin 3.7 Albumin/Globulin Ratio 0.9 Urine Color Urine Clarity Urine pH Ur Specific [place] Urine Protein Urine Glucose (UA) Urine Ketones Urine Occult Blood Urine Nitrite Urine Bilirubin Urine Urobilinogen Ur Leukocyte Esterase Urine RBC Urine WBC Ur Squamous Epith Cells Urine Bacteria Urine Mucus 08/07/20 08/07/20 08/07/20 18:51 19:03 19:15 WBC RBC Hgb Hct MCV MCH MCHC RDW Std Deviation RDW Coeff of Maddie Plt Count MPV Immature Gran % (Auto) Neut % (Auto) Lymph % (Auto) [place] % (Auto) Eos % (Auto) Baso % (Auto) Absolute Neuts (auto) Absolute Lymphs (auto) Nucleated RBC % D-Dimer Quant (PE/DVT) 1.60 H* Sodium Potassium Chloride Carbon Dioxide Anion Gap BUN Creatinine Estim Creat Clear Calc Est GFR (MDRD) Af Amer Est GFR (MDRD) Non-Af BUN/Creatinine Ratio Glucose Lactic Acid 1.8 Calcium Total Bilirubin AST ALT Alkaline Phosphatase B-Natriuretic Peptide Total Protein Albumin Globulin Albumin/Globulin Ratio Urine Color Yellow Urine Clarity Clear Urine pH 6.0 Ur Specific [place] 1.015 Urine Protein 15 H Urine Glucose (UA) Normal Urine Ketones Negative Urine Occult Blood Negative Urine Nitrite Negative Urine Bilirubin Negative Urine Urobilinogen 1 H Ur Leukocyte Esterase Negative Urine RBC 0 SEEN Urine WBC 0 SEEN Ur Squamous Epith Cells 0 SEEN Urine Bacteria RARE Urine Mucus 0 SEEN Radiology Impression Abdomen/Pelvis CT 08/07/20 19:53 IMPRESSION: 1. Moderate amount of abdominal and pelvic ascites 2. Mild interstitial edema is present in the lungs. A small cyst is present in the right lower lobe. Mild pulmonary edema and basilar atelectasis is present in the left lower lobe which is associated with a small left pleural effusion. Left chest cardiac device and right heart leads noted. Electronically Signed: Pietro Licea MD at 21:10 EDT , Service support , Chest CTA 08/07/20 19:53 IMPRESSION: Mild interstitial and emphysematous changes.. Moderate-sized left pleural effusion. There is suprahilar atelectasis or infiltrate in left upper lobe. There is no evidence for pulmonary embolus however there does appear to be focal narrowing of one of the proximal left upper lobe branches raising question of suprahilar tumor encasement. Clinical correlation is recommended Mild ascites noted within the abdomen Electronically Signed: Rodolfo Mccracken MD at 21:41 EDT , Service support , Assessment & Plan Assessment/Plan (1) Heart failure with reduced ejection fraction: (2) Constipation: QUALIFIERS: Constipation type: unspecified constipation type Qualified Code(s): K59.00 - Constipation, unspecified (3) Nicotine dependence: PLAN: Acute Exacerbation of heart failure with reduced ejection fraction status post ICD Echocardiogram on 03/25/2020 was reviewed. Echocardiogram with estimated ejection fraction of 20%. Stage III diastolic dysfunction. Mild mitral valve insufficiency. Moderate tricuspid valve insufficiency. Pulmonary artery systolic pressure was 50 mmHg indicating moderate pulmonary hypertension. Place on monitored bed on a progressive care unit Weight on admission to the floor; and then daily Strict I&O's Patient with elevated D-dimer. Chest CTA showed moderate size left pleural effusion. Suprahilar atelectasis or infiltrate in the left upper lobe. Narrowing of one of the proximal left upper lobe branches raising question of joe prahilar tumor encasement. Emergency department labs reviewed showed BNP of 1254. Abdomen and pelvis CT with moderate amount of abdominal and pelvic ascites. Was on Lasix 20 mg at home. report that with doubling Lasix at home patient was to have any improvements. Given Lasix 80 mg IV push in the emergency department. Lasix 40 mg IV twice daily ordered. Supplement potassium. Trend BMP. If a lasix does not give enough relief consider thoracentesis and paracentesis. Trend blood pressure Titrate diuretics and heart failure/blood pressure medications with blood pressure. Dmitry wrap to bilateral lower extremities Fluid restriction of 1500 mls daily Cardiac diet. Carvedilol continued. Review of cardiology visit notes show that in the past patient has not tolerated Entresto therapy and lisinopril therapy. Reportedly with these medications he developed hypotension associated with lightheadedness and dizziness. DMITRY inhibitor/DMITRY receptor blockers not ordered at this time. Of note patient follows up with Dr. Schmitz Hypertension Blood pressure is not within goal Carvedilol continued. Lasix as above Trend blood pressure and adjust blood pressure medications. History of lung cancer. Discussed CTA findings with patient. Patient's described a possible stereotactic radiosurgery. Patient thinks that the present chest CTA finding is not anything new but a sequela of his stereotactic radiosurgery. Patient to follow-up outpatient. Constipation Senokot as prescribed Nicotine dependence Counselled. DVT prophylaxis Subcutaneous Lovenox ordered. Charges/Coding Visit Charges Inpatient E&M: 35058 Init Hosp L3
[2020-08-07 22:16] VITALS: BP 120/82; PULSE 76; RESP 18; TEMP 37.1; O2SAT 100
[2020-08-07 22:39] VITALS: BMI 26.4
[2020-08-07 22:54] VITALS: PULSE 79
[2020-08-07 22:57] VITALS: BP 131/84; PULSE 82; RESP 18; TEMP 36.4; O2SAT 100
[2020-08-07] MEDS: Senna/Docusate Sodium 1 Tablet 2 TABLET PO (23:22)
[2020-08-07] MEDS: 0.9% Saline Lock 10 ML Syringe IV (23:33)
[2020-08-08] VITALS (7 sets, daily range): BP systolic 103–109; BP diastolic 66–68; PULSE 76–85; RESP 16–24; TEMP 36.5; O2SAT 93–98
[2020-08-08] MEDS: Albuterol 2.5 MG/3 ML VIAL.NEB. INHALATION (05:30)
[2020-08-08 06:02] LABS: Absolute Lymphocyte Count 1.78 X10^3/uL (0.83-4.51); Absolute Neutrophil Count 6.2 X10^3/uL (2.0-7.7); Basophil# 0.05 X10^3/uL; Basophil% 0.5 % (0-1); Eosinophil# 0.16 X10^3/uL; Eosinophils% 1.7 % (0-5); Hematocrit 45.9 % (40-54); Hemoglobin 14.9 g/dL (13.0-16.5); Lymphocyte # 1.78 X10^3/ul (0.83-4.51); Lymphocyte % 19.4 % (19-41); Mean Corp Hgb Conc 32.5 g/dL (32-36); Mean Corpuscular Hgb 30.8 pg (27.0-32.0); Mean Platelet Vol. 10.6 fl (6.2-12.0); Monocyte# 1.02 X10^3/uL; Monocyte% 11.1 % (0-10); NRBC Flagged by Analyzer 0 % (0-5); Neutrophil # 6.15 X10^3/uL (2.7-7.7); Neutrophil % 67.1 % (47-70); Platelet Count 259 K/mm3 (150-450); RBC Distribution Width CV 13.8 % (11.6-14.6); RBC Distribution Width SD 47.9 fl (35.1-43.9); Red Blood Count 4.83 M/mm3 (4.6-6.2); White Blood Count 9.2 K/mm3 (4.4-11.0)
[2020-08-08 06:24] LABS: Anion Gap 7 (5-15); BUN 19 mg/dL (7-18); BUN/Creat Ratio 16.5 RATIO (10-20); Calcium,Total 8.7 mg/dL (8.5-10.1); Chloride 106 mmol/L (98-107); Creatinine, Serum 1.15 mg/dL (0.70-1.30); EST Glomerular Filtration Rate 68 mL/min (>60); Est Glom Filt Rate - Afr Amer 82 mL/min (>60); Estimated Creatinine Clearance 70.03 ml/min; Glucose 124 mg/dL (74-106); Potassium 3.5 mmol/L (3.5-5.1); Sodium Level 141 mmol/L (136-145)
[2020-08-08] MEDS: Potassium Chloride Oral Tablet 20 MEQ 40 MEQ PO (09:27)
[2020-08-08] MEDS: Furosemide 40 MG/4 ML Vial IV (09:28)
[2020-08-08] MEDS: Aspirin 325 MG Tablet PO (09:28)
[2020-08-08] MEDS: Carvedilol 6.25 MG Tablet PO (09:28)
[2020-08-08] MEDS: Enoxaparin 40 MG/0.4 ML Syringe SC (09:28)
--- NOTE | 2020-08-08 10:20 | CASEMGMT ---
RN SANDRA PHYS ASST CM to room to meet with patient for initial transition planning/care coordination assessment. RN SANDRA introduced self and role at [facility].? Pt voices understanding and consents to assessment at this time.? Pt resting in bed in no distress at this time.? Pt is A/O at this time and answers all questions appropriately.?? Care providers, pharmacy, and demographics verified/updated at this time. PCP: JAVI Solo Specialists: Dr Schmitz-cardiology, Supervisor Of Instruction @ [facility]--pt does not remember name, Oncologist @ [facility]--pt states his name is Dr Navas Preferred Pharmacy: [facility] retail Insurance: [employer] Prescription Benefit:? Yes LNOK: , Nory. Has 9 children Living Arrangements: Lives w/his in one-story home w/2 steps to enter. Independent w/ADL's. /pt share home tasks. Transportation: Pt states drives self and states no transportation concerns at this time.? also drives DME: ? Has a CPAP and nebulizer. Pt states no need for further DME at this time.? HHC/SNF: No history of either and pt denies needs. No needs identified. Pt wishes to return home and states has no concerns with going home at time of discharge.? Pt states does not drink and smokes 1/2 PPD. CM to follow for any discharge planning/needs.? Pt voices no concerns/needs at this time.? Advised pt to ask for CM if any questions/concerns/needs arise.? Voices understanding. PLAN: ?Home w/spousal support and discharge plans in place. Melina FRANKEL RN, CM
--- NOTE | 2020-08-08 11:43 | PCM.DC ---
Discharge Instructions Diet Discharge Diet: No restrictions Activity Discharge Activity: Return to Normal Activity Follow Up Care Please Follow Up With: Primary care provider When: Within the next two weeks. Test Results: Test results from this visit will be discussed in further detail at your follow-up appointment, if applicable. Discharge Plan Admission Admit Date/Time: 08/07/20 22:10 Primary Reason for Your Visit: CHF exacerbation Attending Provider: Sherry Loyola Primary Care Provider: Aurora Solo NP Instructions Patient Instructions: ED Heart Failure, Congestive (CHF) Discharge Orders/Prescriptions Prescriptions: New rosuvastatin [Crestor] 40 mg tablet 40 mg PO DAILY Qty: 30 RF: 0 furosemide [Lasix] 40 mg tablet 40 mg PO DAILY Qty: 30 RF: 0 Continued coenzyme Q10 10 mg capsule 10 mg PO DAILY RF: 0 albuterol sulfate [ProAir HFA] 90 mcg/actuation HFA aerosol inhaler 2 inh INHALATION Q6H PRN (Reason: Wheezing) RF: 0 aspirin 325 mg tablet 325 mg PO DAILY RF: 0 carvedilol 3.125 mg tablet 6.25 mg PO BID RF: 0 Discontinued furosemide [Lasix] 20 mg tablet 20 mg PO DAILY Qty: 30 RF: 11 rosuvastatin [Crestor] 10 mg tablet 10 mg PO .QODAY Qty: 45 RF: 3 Referrals / Follow Up: Aurora Solo NP, [employer] [Primary Care Provider] - Disposition Disposition (needs filled in before D/C Order can be placed): Home, self care
--- NOTE | 2020-08-08 14:46 | DS.PCM_ITS ---
Documented by User: Devaughn MARAVILLA 08/08/20 14:56 Providers Date of Admission: 08/07/20 Primary Care Physician: KAYLIE Almonte Reason For Visit: ACUTE EXACERBATIN OF HEART FAILURE WITH REDUCED EF Diagnosis Discharge Diagnosis (1) Heart failure with reduced ejection fraction: Status: Acute Code(s): I50.20 - Unspecified systolic (congestive) heart failure (2) Constipation: Status: Acute Code(s): K59.00 - Constipation, unspecified Qualifiers: Constipation type: unspecified constipation type Qualified Code(s): K59.00 - Constipation, unspecified (3) Nicotine dependence: Status: Chronic Code(s): F17.200 - Nicotine dependence, unspecified, uncomplicated Medications at Discharge Home Medications albuterol sulfate 90 mcg/actuation aerosol inhaler 2 inh INHALATION Q6H PRN 07/10/19 aspirin 325 mg tablet 325 mg PO DAILY 02/26/20 coenzyme Q10 10 mg capsule 10 mg PO DAILY cap 02/26/20 carvedilol 3.125 mg tablet 6.25 mg PO BID tab 03/25/20 furosemide [Lasix] 40 mg PO DAILY #30 tab 08/08/20 rosuvastatin [Crestor] 40 mg PO DAILY #30 tab 08/08/20 Hospital Course Summary of Care Provided Minutes Spent on Discharge: 35 Hospital Course: 1) acute on chronic diastolic CHF exacerbation with preserved ejection fraction Patient reports significant improvement from admission in regards to lower extremity swelling and shortness of breath. Patient does feel strong enough to return home. Echocardiogram on 03/25/2020 demonstrated an estimated ejection fraction of 20%. Stage III diastolic dysfunction. Mild mitral valve insufficiency. Moderate tricuspid valve insufficiency. Pulmonary artery systolic pressure was 50 mmHg indicating moderate pulmonary hypertension. CT of abdomen and pelvis demonstrated moderate ascites throughout the abdomen abdomen and pelvis. Patient has previously failed Entresto and ANN-MARIE/ARB therapy, we will not prescribe at discharge. Plan; increase Lasix to 40 mg p.o. daily, continue Coreg, follow-up with primary care provider within the next 2 weeks. 2) hypertension Stable. Lasix increased as above, continue Coreg. 3) history of lung cancer To follow-up outpatient. 4) nicotine dependence Cessation counseled. 5) Hyperlipidemia Cholesterol and LDL elevated. Plan; increase rosuvastatin to 40 mg p.o. daily. Patient seen by Devaughn Ang PA-C, under the supervision of Dr. Loyola. Physical Exam Narrative Patient is a 64-year-old male comfortably resting in bed, alert and oriented x3. Patient reports significant improvement in regards to his lower extremity swelling and shortness of breath. Denies chest pain, shortness of breath, palpitations, hemoptysis, sputum production, fever, chills, N/V/D. Const alert, oriented x3 and no apparent distress HEENT normocephalic, head/scalp atraumatic, hearing grossly normal bilaterally and moist oral mucous membranes Eyes PERRL, EOMs intact bilaterally and conjunctivae normal Neck no lymphadenopathy, supple and no JVD Resp normal respiratory effort, no retractions and no use of accessory muscles Auscultation: crackles Cardio regular rate, regular rhythm, no murmurs and no JVD GI normal to inspection, nondistended, normoactive bowel sounds, soft to palpation and non-tender Extremity normal to inspection, full ROM and no clubbing, cyanosis or edema Skin no rashes or lesions noted, no wounds and skin turgor normal Neuro CN's II-XII intact bilaterally Psych affect normal Weight / BMI Weight Weight: 183 lb 6.793 oz Body Mass Index (BMI) 26.4 ABG / Lab / Microbiology Data Result Diagrams: 08/08/20 05:25 08/08/20 05:25 Laboratory: Laboratory Results - last 24 hr 08/07/20 08/07/20 08/07/20 18:51 18:51 18:51 WBC 7.8 RBC 4.98 Hgb 15.4 Hct 47.8 MCV 96.0 H MCH 30.9 MCHC 32.2 RDW Std Deviation 48.3 H RDW Coeff of Maddie 13.7 Plt Count 264 MPV 10.6 Immature Gran % (Auto) 0.400 Neut % (Auto) 57.9 Lymph % (Auto) 28.6 Mccreary % (Auto) 10.3 H Eos % (Auto) 2.3 Baso % (Auto) 0.5 Absolute Neuts (auto) 4.5 Absolute Lymphs (auto) 2.23 Nucleated RBC % 0 D-Dimer Quant (PE/DVT) Sodium 139 Potassium 4.0 Chloride 105 Carbon Dioxide 27.0 Anion Gap 7 BUN 19 H Creatinine 1.25 Estim Creat Clear Calc 64.42 Est GFR (MDRD) Af Amer 75 Est GFR (MDRD) Non-Af 62 BUN/Creatinine Ratio 15.2 Glucose 99 Lactic Acid Calcium 9.3 Total Bilirubin 1.50 H AST 26 ALT 44 Alkaline Phosphatase 186 H Troponin I B-Natriuretic Peptide 1254.0 H Total Protein 7.2 Albumin 3.5 Globulin 3.7 Albumin/Globulin Ratio 0.9 Urine Color Urine Clarity Urine pH Ur Specific Clarissa Urine Protein Urine Glucose (UA) Urine Ketones Urine Occult Blood Urine Nitrite Urine Bilirubin Urine Urobilinogen Ur Leukocyte Esterase Urine RBC Urine WBC Ur Squamous Epith Cells Urine Bacteria Urine Mucus 08/07/20 08/07/20 08/07/20 18:51 18:51 19:03 WBC RBC Hgb Hct MCV MCH MCHC RDW Std Deviation RDW Coeff of Maddie Plt Count MPV Immature Gran % (Auto) Neut % (Auto) Lymph % (Auto) Mccreary % (Auto) Eos % (Auto) Baso % (Auto) Absolute Neuts (auto) Absolute Lymphs (auto) Nucleated RBC % D-Dimer Quant (PE/DVT) 1.60 H* Sodium Potassium Chloride Carbon Dioxide Anion Gap BUN Creatinine Estim Creat Clear Calc Est GFR (MDRD) Af Amer Est GFR (MDRD) Non-Af BUN/Creatinine Ratio Glucose Lactic Acid 1.8 Calcium Total Bilirubin AST ALT Alkaline Phosphatase Troponin I < 0.015 B-Natriuretic Peptide Total Protein Albumin Globulin Albumin/Globulin Ratio Urine Color Urine Clarity Urine pH Ur Specific Clarissa Urine Protein Urine Glucose (UA) Urine Ketones Urine Occult Blood Urine Nitrite Urine Bilirubin Urine Urobilinogen Ur Leukocyte Esterase Urine RBC Urine WBC Ur Squamous Epith Cells Urine Bacteria Urine Mucus 08/07/20 08/08/20 08/08/20 19:15 05:25 05:25 WBC 9.2 RBC 4.83 Hgb 14.9 Hct 45.9 MCV 95.0 H MCH 30.8 MCHC 32.5 RDW Std Deviation 47.9 H RDW Coeff of Maddie 13.8 Plt Count 259 MPV 10.6 Immature Gran % (Auto) 0.200 Neut % (Auto) 67.1 Lymph % (Auto) 19.4 Mccreary % (Auto) 11.1 H Eos % (Auto) 1.7 Baso % (Auto) 0.5 Absolute Neuts (auto) 6.2 Absolute Lymphs (auto) 1.78 Nucleated RBC % 0 D-Dimer Quant (PE/DVT) Sodium 141 Potassium 3.5 Chloride 106 Carbon Dioxide 28.0 Anion Gap 7 BUN 19 H Creatinine 1.15 Estim Creat Clear Calc 70.03 Est GFR (MDRD) Af Amer 82 Est GFR (MDRD) Non-Af 68 BUN/Creatinine Ratio 16.5 Glucose 124 H Lactic Acid Calcium 8.7 Total Bilirubin AST ALT Alkaline Phosphatase Troponin I B-Natriuretic Peptide Total Protein Albumin Globulin Albumin/Globulin Ratio Urine Color Yellow Urine Clarity Clear Urine pH 6.0 Ur Specific Clarissa 1.015 Urine Protein 15 H Urine Glucose (UA) Normal Urine Ketones Negative Urine Occult Blood Negative Urine Nitrite Negative Urine Bilirubin Negative Urine Urobilinogen 1 H Ur Leukocyte Esterase Negative Urine RBC 0 SEEN Urine WBC 0 SEEN Ur Squamous Epith Cells 0 SEEN Urine Bacteria RARE Urine Mucus 0 SEEN Radiography Diagnostic Testing: Radiology Impression Abdomen/Pelvis CT 08/07/20 19:53 IMPRESSION: 1. Moderate amount of abdominal and pelvic ascites 2. Mild interstitial edema is present in the lungs. A small cyst is present in the right lower lobe. Mild pulmonary edema and basilar atelectasis is present in the left lower lobe which is associated with a small left pleural effusion. Left chest cardiac device and right heart leads noted. Electronically Signed: Pietro Licea MD at 21:10 EDT , Service support , Chest CTA 08/07/20 19:53 IMPRESSION: Mild interstitial and emphysematous changes.. Moderate-sized left pleural effusion. There is suprahilar atelectasis or infiltrate in left upper lobe. There is no evidence for pulmonary embolus however there does appear to be focal narrowing of one of the proximal left upper lobe branches raising question of suprahilar tumor encasement. Clinical correlation is recommended Mild ascites noted within the abdomen Electronically Signed: Rodolfo Mccracken MD at 21:41 EDT , Service support , D/C Instructions Discharge Diet: No restrictions Please Follow Up With: Primary care provider When: Within the next two weeks. Meaningful Use Info Meaningful Use Diagnoses (Choose all that apply): CHF CHF ANN-MARIE/ARB ordered at discharge?: No Reason ANN-MARIE/ARB not ordered?: Allergy Documented LVEF (%): 20 Discharge Plan Admission Admit Date/Time: 08/07/20 22:10 Primary Reason for Your Visit: CHF exacerbation Attending Provider: Sherry Loyola Primary Care Provider: Aurora Solo SKEIN INSPECTOR Instructions Patient Instructions: ED Heart Failure, Congestive (CHF) Discharge Orders/Prescriptions Prescriptions: New rosuvastatin [Crestor] 40 mg tablet 40 mg PO DAILY Qty: 30 RF: 0 furosemide [Lasix] 40 mg tablet 40 mg PO DAILY Qty: 30 RF: 0 Continued coenzyme Q10 10 mg capsule 10 mg PO DAILY RF: 0 albuterol sulfate [ProAir HFA] 90 mcg/actuation HFA aerosol inhaler 2 inh INHALATION Q6H PRN (Reason: Wheezing) RF: 0 aspirin 325 mg tablet 325 mg PO DAILY RF: 0 carvedilol 3.125 mg tablet 6.25 mg PO BID RF: 0 Discontinued furosemide [Lasix] 20 mg tablet 20 mg PO DAILY Qty: 30 RF: 11 rosuvastatin [Crestor] 10 mg tablet 10 mg PO .QODAY Qty: 45 RF: 3 Referrals / Follow Up: Aurora Solo NP, SKEIN INSPECTOR-C [Primary Care Provider] - Disposition Disposition (needs filled in before D/C Order can be placed): Home, self care Documented by User: Dr. Sherry Loyola MD 08/09/20 08:02 Providers Date of Admission: 08/07/20 Reason For Visit: ACUTE EXACERBATIN OF HEART FAILURE WITH REDUCED EF Medications at Discharge Home Medications albuterol sulfate 90 mcg/actuation aerosol inhaler 2 inh INHALATION Q6H PRN 07/10/19 aspirin 325 mg tablet 325 mg PO DAILY 02/26/20 coenzyme Q10 10 mg capsule 10 mg PO DAILY cap 02/26/20 carvedilol 3.125 mg tablet 6.25 mg PO BID tab 03/25/20 furosemide [Lasix] 40 mg PO DAILY #30 tab 08/08/20 rosuvastatin [Crestor] 40 mg PO DAILY #30 tab 08/08/20 ABG / Lab / Microbiology Data Result Diagrams: 08/08/20 05:25 08/08/20 05:25 Discharge Plan Admission Admit Date/Time: 08/07/20 22:10 Primary Reason for Your Visit: CHF exacerbation Attending Provider: Sherry Loyola Primary Care Provider: Aurora Solo SKEIN INSPECTOR Instructions Patient Instructions: ED Heart Failure, Congestive (CHF) Discharge Orders/Prescriptions Prescriptions: New rosuvastatin [Crestor] 40 mg tablet 40 mg PO DAILY Qty: 30 RF: 0 furosemide [Lasix] 40 mg tablet 40 mg PO DAILY Qty: 30 RF: 0 Continued coenzyme Q10 10 mg capsule 10 mg PO DAILY RF: 0 albuterol sulfate [ProAir HFA] 90 mcg/actuation HFA aerosol inhaler 2 inh INHALATION Q6H PRN (Reason: Wheezing) RF: 0 aspirin 325 mg tablet 325 mg PO DAILY RF: 0 carvedilol 3.125 mg tablet 6.25 mg PO BID RF: 0 Discontinued furosemide [Lasix] 20 mg tablet 20 mg PO DAILY Qty: 30 RF: 11 rosuvastatin [Crestor] 10 mg tablet 10 mg PO .QODAY Qty: 45 RF: 3 Referrals / Follow Up: Aurora Solo SKEIN INSPECTOR, SKEIN INSPECTOR-C [Primary Care Provider] - Disposition Disposition (needs filled in before D/C Order can be placed): Home, self care Charges/Coding Addendum Addendum: This patient was seen in conjunction with RENITA Witt. I have independently interviewed and examined the patient and reviewed pertinent historical, laboratory, and other data. Please refer to RENITA Witt's note for his patient's presentation, findings, and recommendations. I have reviewed and his note and concur with his documentation 64-year-old male with past medical history of lung cancer status post radiation, heart failure with preserved EF, EF of 20%, stage III diastolic dysfunction, nicotine dependence presented with a 1 week history of progressive leg swelling, weight gain and abdominal bloating associated with shortness of breath, PND and orthopnea. He stated that his had went up and Lasix for him and he had problems tolerating as his urine output was low. Patient was admitted to the PCU and managed as acute CHF on chronic heart failure with reduced EF. He had elevated D-dimer on admission and CT of the chest shows moderate-sized left pleural effusion. Patient reported improvement with Lasix treatment. He was off oxygen at discharge. He did not require oxygen on ambulation. He was discharged home on Lasix 40mg daily. He will follow up with cardiology and have with his primary care doctor in the outpatient. Physical Exam: Gen: Comfortable, not pale, not jaundiced CVS:HS I +II, regular, no murmurs RESP: Diminished at lung bases GI: BS present and normal, soft, nontender, no palpable organs EXT:No edema Visit Charges Inpatient E&M: 76543 Disch Hosp
== END 2020-08-08 14:05 | disposition home or self-care (01) | DRG 293 ==
LOC: ED 22:08 → PCU 22:16
PROVIDERS: Admitting Provider Hospitalist; Emergency Provider Emergency Medicine; PCP Nurse Practitioner Family; Visit Provider Internal Medicine
DX: I11.0 Hypertensive heart disease with heart failure (principal); I50.33 Acute on chronic diastolic (congestive) heart failure; E78.5 Hyperlipidemia, unspecified; Z85.118 Personal history of other malignant neoplasm of bronchus and lung; Z86.73 Personal history of transient ischemic attack (TIA), and cerebral infarction without residual deficits; Z95.810 Presence of automatic (implantable) cardiac defibrillator; Z79.899 Other long term (current) drug therapy; F17.210 Nicotine dependence, cigarettes, uncomplicated; K59.00 Constipation, unspecified
CPT/HCPCS: 36415; 51702; 71275; 74177; 80048; 80053; 81001; 83605; 83880; 84484; 85025; 85379; 93005; 94640; 99285; 99406; Q9967; A4216; J1940

== ENCOUNTER → 2021-01-26 12:15 | Outpatient (CLI) | payer MEDICARE, SELFPAY ==
[2021-01-26 14:16] LABS: AST(SGOT) 27 U/L (15-37); Alanine Aminotransfer ALT/SGPT 48 U/L (16-61); Albumin, Serum 3.9 g/dL (3.2-5.0); Alkaline Phosphatase 143 U/L (45-117); Anion Gap 6 (5-15); BUN 18 mg/dL (7-18); BUN/Creat Ratio 15.8 RATIO (10-20); Calcium,Total 9.6 mg/dL (8.5-10.1); Chloride 102 mmol/L (98-107); Cholesterol 156 mg/dL (200); Creatinine, Serum 1.14 mg/dL (0.70-1.30); EST Glomerular Filtration Rate 69 mL/min (>60); Est Glom Filt Rate - Afr Amer 83 mL/min (>60); Globulin 4.6 g/dL (2.2-4.2); Glucose 105 mg/dL (74-106); High Density Lipoprotein 31 mg/dL; Protein, Total 8.5 g/dL (6.4-8.2); Sodium Level 136 mmol/L (136-145); Triglycerides 114 mg/dL; Very Low Density Lipoprotein 23 mg/dL (5-40)
== END ==
PROVIDERS: PCP Nurse Practitioner Family; Referring Provider Nurse Practitioner Family; Visit Provider Nurse Practitioner Family
DX: I25.10 Atherosclerotic heart disease of native coronary artery without angina pectoris (principal); I25.5 Ischemic cardiomyopathy; I47.2 Ventricular tachycardia; E78.5 Hyperlipidemia, unspecified; Z95.5 Presence of coronary angioplasty implant and graft
CPT/HCPCS: 36415; 80048; 80061; 80076

== ENCOUNTER 2021-03-17 14:53 | Inpatient (IN) | payer MEDICARE, SELFPAY ==
[2021-03-17 14:54] VITALS: BP 144/91; PULSE 88; RESP 18; TEMP 36.3; O2SAT 100; BMI 24.3
--- NOTE | 2021-03-17 15:13 | CT_ITS ---
We are attempting to reach an attending provider to discuss findings. An addendum with communication details will be sent when the communication is complete. STUDY: CT ABDOMEN AND PELVIS WITH CONTRAST REASON FOR EXAM: Male, 65 years old. Abdominal pain -- IV PO Contrast RADIATION DOSAGE (If Supplied By Facility): CTDIvol = ( 10.18 ) mGy, DLP = ( 709.31 ) mGycm TECHNIQUE: Transaxial images were obtained from the dome of the diaphragm to the symphysis pubis without oral contrast. IV-100 mL IsoVue 370 was administered. Sagittal and coronal images were reconstructed. Individualized dose optimization techniques were used for this CT. COMPARISON: None. FINDINGS: The visualized lung bases are unremarkable. The visualized portions of the heart are within normal limits. Normal liver. Gallbladder sludge. Normal spleen. Normal pancreas. Mild ascites. Normal bilateral adrenal glands. Normal right kidney. Normal left kidney. Normal visualized stomach. Normal small intestine. Normal colon. There are surgical clips in the region of the appendix consistent with a prior appendectomy. Severe diffuse atherosclerotic disease with apparent occlusion of the right common iliac artery which appears to reconstitute distally, similar to prior. Normal inferior vena cava. Normal retroperitoneum. Normal urinary bladder. There are prostatic calcifications. Normal abdominal wall. Normal osseous structures. CT/Abdomen/Pelvis WITH Contrast IMPRESSION: Ascites. Mildly thick-walled gallbladder may be reactive, gallbladder sludge. Cholecystitis, while considered unlikely should be excluded clinically. Chronic occlusion of the right common iliac artery and severe diffuse atherosclerotic disease. Electronically Signed: Chandu Portillo MD at 18:02 EST Tel , Service support ,
--- NOTE | 2021-03-17 15:14 | EKG12_ITS ---
Test Reason : GEN ILLNESS Blood Pressure : / mmHG Vent. Rate : 087 BPM Atrial Rate : 087 BPM P-R Int : 220 ms QRS Dur : 152 ms QT Int : 420 ms P-R-T Axes : 077 -61 095 degrees QTc Int : 505 ms Sinus rhythm with 1st degree A-V block Left axis deviation Left bundle branch block Abnormal ECG Confirmed by SANTIAGO CALI, JAZLYN ([id number]), industrial editor GAB CONTRERAS ([id number]) on 03/18/2021 10:10:50 AM Referred By: STEFANY Confirmed By:JAZLYN HENDERSON MD
--- NOTE | 2021-03-17 15:15 | EX.ED.DYSGE1 ---
HPI History of Present Illness Chief Complaint: General Illness Detail of Chief Complaint: Abdominal pain, dyspnea Informant: patient and spouse/S.O. Onset/Context/Timing Current Severity: 11/07 Narrative Narrative: Patient presents to the emergency department complaint of abdominal discomfort and bloating for the last 2 weeks. He complains of pain after eating and bloating that is relieved by belching sometimes. Patient states he has been sleeping sitting up for the last 2 weeks because he does not feel like he can breathe if he lays flat. He denies chest pain. Patient also states he has had a cough for several weeks and is taken to home COVID test that have been negative. Patient has been vaccinated against COVID but does not have the booster. He describes some subjective fevers. His noticed a yellowish discoloration to his skin yesterday. Patient's had prior appendectomy. Patient also states that he has not had a bowel movement in 1 week. Patient has taken magnesium citrate and states that some of the magnesium citrate has passed through. 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 myocardial infarction Peripheral vascular occlusive disease Home Medications albuterol sulfate 90 mcg/actuation aerosol inhaler 2 inh INHALATION Q6H PRN 07/10/19 [History Last Taken Unknown] aspirin 325 mg tablet 325 mg PO DAILY 02/26/20 [History Last Taken Unknown] coenzyme Q10 10 mg capsule 10 mg PO DAILY cap 02/26/20 [History Last Taken Unknown] cholecalciferol (vitamin D3) 1,250 mcg (50,000 unit) capsule 1,250 mcg PO QWEEK 09/23/20 [History Last Taken Unknown] rosuvastatin 40 mg tablet 40 mg PO DAILY #90 tab 09/23/20 [Rx Last Taken Unknown] spironolactone 25 mg tablet 25 mg PO DAILY #30 tab 09/23/20 [Rx Last Taken Unknown] furosemide 40 mg tablet 40 mg PO DAILY #90 tab 01/26/21 [Rx Last Taken Unknown] carvedilol 6.25 mg tablet 6.25 mg PO BID #60 tab 01/30/21 [Rx Last Taken Unknown] doxycycline hyclate 100 mg PO BID 03/17/21 [History Last Taken Unknown] Allergy/AdvReac Type Severity Reaction Status Date / Time atorvastatin AdvReac Shortness Verified 01/26/21 13:09 of breath Family History (Reviewed 01/26/21 @ 13:09 by Jaquelin Nichols [employer] SUPERVISOR, [employer] SUPERVISOR-C) Mother Asthma CHF (congestive heart failure) Hypertension Father CAD (coronary artery disease) Age of 55 Myocardial infarction Sister Asthma Diabetes Thyroid disorder Myocardial infarction Hypertension Cancer Thyroid Sister Diabetes Thyroid disorder Hypertension Surgical History (Reviewed 01/26/21 @ 13:09 by Jaquelin Nichols [employer]SP[employer] SUPERVISOR, [employer] SUPERVISOR-C) Hernia History of appendectomy History of coronary artery stent placement (01/20/10) History of implantable cardiac defibrillator (ICD) (03/16/18) Social History (Reviewed 01/26/21 @ 13:09 by Jaqeulin Nichols [employer] SUPERVISOR, [employer]SP[employer] SUPERVISOR-C) Smoking Status: Current every day smoker tobacco type: cigarettes ROS ROS ED Constitutional Constitutional ED: Reports systems reviewed and no addt'l complaints, except as documented; Denies body ache(s), change in weight or chills Eyes Eyes: Denies acute decrease in peripheral vision, change in vision, double vision or loss of vision ENT ENT ED: Reports none; Denies ear pain, lip swelling, loss taste/smell, neck pain, otalgia or sore throat Cardiovascular Cardiovascular: Reports none; Denies abdominal pain, chest pain with activity, leg edema, lightheadedness, palpitations, rapid heart rate or syncope Respiratory/Chest Respiratory/Chest: Reports none, cough and dyspnea; Denies change in mental status, dry cough, hemoptysis, shortness of breath at rest or shortness of breath with exertion Gastrointestinal Gastrointestinal: Reports none, abdominal pain, constipation and nausea; Denies change in stool character, diarrhea, hematemesis, hematochezia, melena, rectal bleeding or vomiting Genitourinary Genitourinary ED: Reports none; Denies abdominal discomfort, anuria, dysuria, genital pain or polyuria Musculoskeletal Musculoskeletal: Reports none; Denies arthralgias, back pain, difficulty walking, extremity pain, muscle weakness or myalgias Integumentary Reports none and other Details: Yellow skin ; Denies abscess or rash Neurologic Neurologic: Reports none; Denies abnormal gait, confusion, focal weakness, frequent falls, headache(s), loss of vision, numbness, paresthesias, radicular pain, vertigo or weakness Psychiatric Psychiatric: Reports systems reviewed and no addt'l complaints, except as documented and none; Denies behavioral changes, confusion, difficulty concentrating, hallucinations, suicidal ideation, tactile hallucinations or visual hallucinations Endocrine Endocrinology: Denies none, cold intolerance, excessive sweating, fatigue or heat intolerance Hematologic/Lymphatic Hematologic/Lymphatic: Reports none; Denies anemia, easy bleeding or easy bruising Allergic/Immunologic Allergic/Immunologic ED: Denies as per HPI, none, lip swelling, mouth swelling, throat swelling, tongue swelling or hives EXAM Physical Exam Const Vital Signs: 03/17/21 14:54 03/17/21 15:32 03/17/21 19:11 Temperature 97.4 F L 97.9 F Temperature Source Temporal Temporal Pulse Rate 88 75 Respiratory Rate 18 16 Respiratory Effort Short of Breath Blood Pressure 144/91 H 121/93 H Blood Pressure Mean 108 102 Pulse Ox 100 99 Oxygen Delivery Method Room Air Room Air Positive well nourished and well developed General Appearance ED: well developed and NAD HEENT Reports TM's clear and moist mucous membranes normocephalic and atraumatic; Negative for trauma or tenderness Tympanic Membrane ED: Yes TM's clear Eyes PERRL and EOMs intact bilaterally General Eye ED: Yes scleral icterus; Negative for pale conjunctiva Neck no lymphadenopathy, supple and no JVD General: Negative for tenderness Chest Wall inspection of chest normal and palpation of chest normal Chest: Negative for tenderness Resp normal respiratory effort and clear to auscultation bilaterally Effort and Inspection: Negative for respiratory distress or pain with movement Auscultation: Negative for rhonchi, wheezes or diminished lung sounds Cardio regular rate, regular rhythm, S1 normal heart sound, S2 normal heart sound and no murmurs Peripheral Pulses: pulses 2+ throughout GI normal to inspection, nondistended, normoactive bowel sounds, soft to palpation, non-distended and no masses GI Narrative: Patient with tenderness to the right upper quadrant with guarding and a positive White sign. Palpation: soft, tender and guarding Back/Spine no CVA tenderness and no thoracic nor lumbar tenderness Extremity normal to inspection General Extremety ED: Negative for edema General Extremity: Negative for edema Neuro oriented x3, CN's II-XII intact bilaterally, no sensory deficits noted and gait normal Sensorium / Orientation: awake, alert, oriented to person, oriented to place and oriented to time Motor Exam: strength 5/5 throughout and strength abnormal Psych mental status grossly normal Skin no wounds General Skin Exam: jaundice MDM MDM MDM Narrative Medical decision making narrative: IV line established. Patient was noted to have elevated liver enzymes. CT scan showed sludge in the gallbladder and the thickened wall and there was concern for possible cholecystitis. I discussed case with surgeon on-call Dr. Lindsay who evaluated patient in the emergency department. I was asked to obtain a formal ultrasound of the gallbladder which was performed and only showed sludge with a normal common bile duct. I was asked to have patient admitted to medicine and Dr. Lindsay will consult and it was also recommended that GI be consulted. Lab Data Attestation: I reviewed the patient's lab results. Labs: Laboratory Results - last 24 hr 03/17/21 03/17/21 03/17/21 16:23 16:23 16:32 WBC 10.9 RBC 5.12 Hgb 15.9 Hct 48.6 MCV 94.9 H MCH 31.1 MCHC 32.7 RDW Std Deviation 50.1 H RDW Coeff of Maddie 14.6 Plt Count 258 MPV 10.8 Immature Gran % (Auto) 0.600 Neut % (Auto) 66.3 Lymph % (Auto) 21.1 [place] % (Auto) 11.6 H Eos % (Auto) 0.2 Baso % (Auto) 0.2 Absolute Neuts (auto) 7.2 Absolute Lymphs (auto) 2.29 Nucleated RBC % 0.5 Sodium 130 L Potassium 4.8 Chloride 93 L Carbon Dioxide 25.0 Anion Gap 12 BUN 44 H Creatinine 1.32 H Estim Creat Clear Calc 60.21 Est GFR (MDRD) Af Amer 70 Est GFR (MDRD) Non-Af 58 L BUN/Creatinine Ratio 33.3 H Glucose 106 Lactic Acid 3.0 H* Calcium 9.2 Total Bilirubin 3.90 H AST 274 H ALT 629 H Alkaline Phosphatase 164 H Troponin I High Sens 25 B-Natriuretic Peptide Total Protein 7.1 Albumin 3.6 Globulin 3.5 Albumin/Globulin Ratio 1.0 Lipase 20 L Urine Color Urine Clarity Urine pH Ur Specific [place] Urine Protein Urine Glucose (UA) Urine Ketones Urine Occult Blood Urine Nitrite Urine Bilirubin Urine Urobilinogen Ur Leukocyte Esterase Urine RBC Urine WBC Ur Squamous Epith Cells Urine Bacteria Hyaline Casts Urine Mucus 03/17/21 03/17/21 16:32 16:43 WBC RBC Hgb Hct MCV MCH MCHC RDW Std Deviation RDW Coeff of Maddie Plt Count MPV Immature Gran % (Auto) Neut % (Auto) Lymph % (Auto) [place] % (Auto) Eos % (Auto) Baso % (Auto) Absolute Neuts (auto) Absolute Lymphs (auto) Nucleated RBC % Sodium Potassium Chloride Carbon Dioxide Anion Gap BUN Creatinine Estim Creat Clear Calc Est GFR (MDRD) Af Amer Est GFR (MDRD) Non-Af BUN/Creatinine Ratio Glucose Lactic Acid Calcium Total Bilirubin AST ALT Alkaline Phosphatase Troponin I High Sens B-Natriuretic Peptide 1612.5 H Total Protein Albumin Globulin Albumin/Globulin Ratio Lipase Urine Color Jo Urine Clarity Clear Urine pH 5.0 Ur Specific [place] 1.025 Urine Protein 30 H Urine Glucose (UA) Normal Urine Ketones 5 H Urine Occult Blood Negative Urine Nitrite Negative Urine Bilirubin Negative Urine Urobilinogen 1 H Ur Leukocyte Esterase Negative Urine RBC 0 SEEN Urine WBC 0 SEEN Ur Squamous Epith Cells 0 SEEN Urine Bacteria 1+ Hyaline Casts 0-5 SEEN Urine Mucus 0 SEEN Radiography Chest X-Ray - ED: 1 View Diagnostic Testing: Clinical Impression(s) from Imaging Studies Abdomen/Pelvis CT 03/17/21 15:13 IMPRESSION: Ascites. Mildly thick-walled gallbladder may be reactive, gallbladder sludge. Cholecystitis, while considered unlikely should be excluded clinically. Chronic occlusion of the right common iliac artery and severe diffuse atherosclerotic disease. Electronically Signed: Chandu Portillo MD at 18:02 EST Tel , Service support , ADDENDUM: 03/17/21 1818 IMPRESSION: Ascites. Mildly thick-walled gallbladder may be reactive, gallbladder sludge. Cholecystitis, while considered unlikely should be excluded clinically. Chronic occlusion of the right common iliac artery and severe diffuse atherosclerotic disease. N.B. : The above Results were Read Back by Chandu Portillo MD to Joni Butcher MD, MD, and understanding confirmed on 03/17/2021 18:08:06 (ET). Electronically Signed: Chandu Portillo MD at 18:02 EST Tel , Service support , Gallbladder Ultrasound 03/17/21 18:20 IMPRESSION: Ascites and mild pericholecystic fluid. Sonographic WHITE sign is negative. Hepatic steatosis. Electronically Signed: Chandu Portillo MD at 19:46 EST Tel , Service support , Chest X-Ray 03/17/21 18:42 IMPRESSION: Findings suggest CHF and pulmonary edema. Superimposed pneumonia should be excluded clinically. Electronically Signed: Chandu Portillo MD at 19:25 EST Tel , Service support , 1 view chest ray obtained interpreted by myself as mild increased markings bilaterally. Radiology felt x-ray consistent with CHF and pulmonary edema. EKG Initial EKG: Attestation: I personally reviewed and interpreted this EKG as follows: Comments: Sinus rhythm with first-degree AV block and left bundle branch block Discharge Plan Triage Chief Complaint: General Illness ED Provider: Joni Butcher Dx/Rx/DC Orders Clinical Impression: CHF (congestive heart failure), Hyperbilirubinemia, Abdominal pain Prescriptions: No Action coenzyme Q10 10 mg capsule 10 mg PO DAILY RF: 0 albuterol sulfate [ProAir HFA] 90 mcg/actuation HFA aerosol inhaler 2 inh INHALATION Q6H PRN (Reason: Wheezing) RF: 0 aspirin 325 mg tablet 325 mg PO DAILY RF: 0 cholecalciferol (vitamin D3) 1,250 mcg (50,000 unit) capsule 1,250 mcg PO QWEEK RF: 0 spironolactone 25 mg tablet 25 mg PO DAILY Qty: 30 RF: 11 rosuvastatin [Crestor] 40 mg tablet 40 mg PO DAILY Qty: 90 RF: 3 furosemide [Lasix] 40 mg tablet 40 mg PO DAILY Qty: 90 RF: 3 doxycycline hyclate 100 mg Tablet 100 mg PO BID RF: 0 carvedilol 6.25 mg tablet 6.25 mg PO BID Qty: 60 RF: 11 Primary Care Provider: Aurora Solo NP Referrals: Aurora Solo [employer]SP[employer] SUPERVISOR, NEWSP[employer]ER [employer] SUPERVISOR-C [Primary Care Provider] - Disposition Disposition: Acute Care [facility]
[2021-03-17] MEDS: 0.9% Normal Saline 1,000 ML 125 ML IV (15:33)
[2021-03-17 16:41] LABS: Absolute Lymphocyte Count 2.29 X10^3/uL (0.83-4.51); Absolute Neutrophil Count 7.2 X10^3/uL (2.0-7.7); Basophil# 0.02 X10^3/uL; Basophil% 0.2 % (0-1); Eosinophil# 0.02 X10^3/uL; Eosinophils% 0.2 % (0-5); Hematocrit 48.6 % (40-54); Hemoglobin 15.9 g/dL (13.0-16.5); Lymphocyte # 2.29 X10^3/ul (0.83-4.51); Lymphocyte % 21.1 % (19-41); Mean Corp Hgb Conc 32.7 g/dL (32-36); Mean Corpuscular Hgb 31.1 pg (27.0-32.0); Mean Corpuscular Volume 94.9 fL (80-94); Mean Platelet Vol. 10.8 fl (6.2-12.0); Monocyte# 1.26 X10^3/uL; Monocyte% 11.6 % (0-10); NRBC Flagged by Analyzer 0.5 % (0-5); Neutrophil # 7.21 X10^3/uL (2.7-7.7); Neutrophil % 66.3 % (47-70); Platelet Count 258 K/mm3 (150-450); RBC Distribution Width CV 14.6 % (11.6-14.6); RBC Distribution Width SD 50.1 fl (35.1-43.9); Red Blood Count 5.12 M/mm3 (4.6-6.2); White Blood Count 10.9 K/mm3 (4.4-11.0)
[2021-03-17 16:58] LABS: Mucous, Urine 0 SEEN /hpf (<or=2+); Red Blood Cells-Urine 0 SEEN /hpf (0-5); Squamous Epithelial Cells - UA 0 SEEN /hpf (0-5); White Blood Cells 0 SEEN /hpf (0-5)
[2021-03-17 17:11] LABS: Color, Urine Amber (Yellow); Glucose, Dipstick Normal (Normal); Ketone-Dipstick 5 mg/dl (Negative); Leukocyte Esterase-Dipstick Negative /ul (Negative); Nitrite-Dipstick Negative (Negative); Occult Blood-Urine Negative /ul (Negative); Protein-Dipstick 30 mg/dl (Negative); Specific Gravity, Urine 1.025 (1.002-1.030); Urine Bilirubin Dipstick Negative (Negative); Urine Clarity Clear (Clear); Urine Urobilinogen 1 mg/dl (Normal)
[2021-03-17 17:21] LABS: Bacteria 1+ /hpf (None Seen); Hyaline Cast 0-5 SEEN /lpf (0-5)
[2021-03-17 17:23] LABS: AST(SGOT) 274 U/L (15-37); Alanine Aminotransfer ALT/SGPT 629 U/L (16-61); Albumin, Serum 3.6 g/dL (3.2-5.0); Alkaline Phosphatase 164 U/L (45-117); Anion Gap 12 (5-15); BUN 44 mg/dL (7-18); BUN/Creat Ratio 33.3 RATIO (10-20); Calcium,Total 9.2 mg/dL (8.5-10.1); Chloride 93 mmol/L (98-107); Creatinine, Serum 1.32 mg/dL (0.70-1.30); EST Glomerular Filtration Rate 58 mL/min (>60); Est Glom Filt Rate - Afr Amer 70 mL/min (>60); Estimated Creatinine Clearance 60.21 ml/min; Globulin 3.5 g/dL (2.2-4.2); Glucose 106 mg/dL (74-106); Lipase 20 U/L (73-393); Potassium 4.8 mmol/L (3.5-5.1); Protein, Total 7.1 g/dL (6.4-8.2); Sodium Level 130 mmol/L (136-145); Troponin-I HS 25 pg/mL (3.0-78.0)
--- NOTE | 2021-03-17 18:20 | US_ITS ---
STUDY: ABDOMINAL ULTRASOUND - RIGHT UPPER QUADRANT REASON FOR VISIT: Male, 65 years old abdominal pain TECHNIQUE: Ultrasound evaluation of the right upper quadrant was performed with real-time and static avila-scale imaging. TECHNICAL QUALITY: Adequate. COMPARISON: None. FINDINGS: Liver: The liver measures 16.9 cm. There is increased echogenicity consistent with fatty infiltration. The bile ducts are within normal limits. There is hepatic color flow. The direction of portal flow is hepatopetal. There is no demonstrated mass lesion. Gallbladder: Normal distended gallbladder. The gallbladder wall measures 5 mm. There is a negative sonographic White''s sign. There is no pericholecystic fluid. There are no gallstones. Common Bile Duct (C.B.D.): The common bile duct measures 3 mm. Pancreas: Not well-visualized. Right Kidney: Normal size of the right kidney. The right kidney measures 11.2 cm. Normal renal cortex. The right cortex measures 1.7 cm. There is no demonstrated renal mass or cyst. There is no right hydronephrosis. US/Gallbladder IMPRESSION: Ascites and mild pericholecystic fluid. Sonographic WHITE sign is negative. Hepatic steatosis. Electronically Signed: Chandu Portillo MD at 19:46 EST Tel , Service support ,
--- NOTE | 2021-03-17 18:42 | RAD_ITS ---
STUDY: X-RAY CHEST REASON FOR EXAM: Male, 65 years old. Dyspnea TECHNIQUE: Single frontal view of the chest. COMPARISON: 12/21/2018 FINDINGS: Mildly increased interstitial markings diffusely, similar to prior. Moderate cardiomegaly. Left cardiac device. Normal mediastinum and donnie. Normal visualized pulmonary arteries. Normal visualized aortic arch and descending thoracic aorta. Normal visualized thoracic spine. Normal visualized ribs, clavicles, and shoulders. There is no demonstrated abnormality of the visualized soft tissue structures of the upper abdomen. RAD/Chest 1 View (Portable) IMPRESSION: Findings suggest CHF and pulmonary edema. Superimposed pneumonia should be excluded clinically. Electronically Signed: Chandu Portillo MD at 19:25 EST Tel , Service support ,
[2021-03-17 19:11] VITALS: BP 121/83; BP 121/93; PULSE 75; RESP 16; TEMP 36.6; O2SAT 99
--- NOTE | 2021-03-17 19:18 | EX.PCM.CON.S ---
Assessment & Plan Assessment/Plan (1) Thickening of wall of gallbladder: PLAN: This is a 65-year-old gentleman who presents with 2-week history of malaise, shortness of breath, constipation, nausea and vomiting, increasing abdominal discomfort, and now jaundiced. He describes discomfort as being present in the bilateral upper quadrants. Presently this is right greater than left but he states that his left side has been more problematic prior. Patient has some thickening of the gallbladder wall on CT imaging in conjunction with hyperbilirubinemia and transaminitis. This is potentially suggestive of a gallstone etiology, however, radiology states they feel cholecystitis is less likely. Patient also presents in what appears to be a decompensated state of congestive heart failure based on his fatigue and shortness of breath complaints. At this time gallbladder ultrasound is pending and a BMP has been requested by emergency medicine. Choledocholithiasis must be excluded and I recommend consideration of empiric antibiotic coverage for possible ductal obstruction given patient's LFTs and hyperbilirubinemia. Patient would benefit from medicine consultation for optimizing his cardiopulmonary status and GI consultation to evaluate his liver. I cannot explain his level of ascites based on his exam and uncomplicated cholecystitis. I will be happy to continue to follow the patient in consultation. (2) Right upper quadrant pain: PLAN: Patient with right upper quadrant pain but negative White sign. As above, choledocholithiasis should be excluded and I recommend GI involvement for this purpose. Ductal decompression should take precedent over a cholecystectomy if this is confirmed. Should the patient continue to have right upper quadrant discomfort, his medical comorbidities would need to be optimized if he is to become a surgical candidate at all. (3) Hyperbilirubinemia: PLAN: Recommend GI evaluation. Gastroenterology has been briefed on the patient via telephone. (4) Transaminitis: PLAN: Recommend GI evaluation. Gastroenterology has been briefed on the patient via telephone. HPI Consult Data Date of Consult: 03/17/21 HPI Narrative HPI Narrative: KAMERON KOHLI, is a 65 M with complex past medical history including cardiac arrest, massive [place], ischemic cardiomyopathy, CVA, lung cancer who presents to [facility] with a 2-week history of pneumonia type symptoms per his who presents with alongside him. She states that her was initiated on antibiotics and steroids but has continued with symptoms of shortness of breath. Over the same period, he complains that he has had increasing abdominal discomfort, nausea, and difficulty moving his bowels. In the last 24 hours, however, he developed jaundiced and this is what prompted them to seek emergent medical evaluation. ER work-up is notable for transaminitis, hyperbilirubinemia, and CT imaging that shows gallbladder wall thickening with perihepatic and perisplenic ascites. During our encounter, Mr. Kohli states that his abdominal swelling improved after a bowel movement in response to the contrast load from the CT exam. He still feels sharp pains in his right upper quadrant and left upper quadrant. He relates the above history and describes insomnia secondary to both respiratory and abdominal discomfort. He states he quickly becomes full after meals and can no longer lie flat. He must belch in order to feel like he can breathe again bloating becomes so severe. Regarding the patient's cardiopulmonary status; he denies that his compromised cardiac function has ever limited his activity. However, his disputes this and the patient admits that he is now becoming winded with very little effort. He estimates that he could not make it across the room without becoming winded in his current state. 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 myocardial infarction Peripheral vascular occlusive disease Home Medications albuterol sulfate 90 mcg/actuation aerosol inhaler 2 inh INHALATION Q6H PRN 07/10/19 [History Last Taken Unknown] aspirin 325 mg tablet 325 mg PO DAILY 02/26/20 [History Last Taken Unknown] coenzyme Q10 10 mg capsule 10 mg PO DAILY cap 02/26/20 [History Last Taken Unknown] cholecalciferol (vitamin D3) 1,250 mcg (50,000 unit) capsule 1,250 mcg PO QWEEK 09/23/20 [History Last Taken Unknown] rosuvastatin 40 mg tablet 40 mg PO DAILY #90 tab 09/23/20 [Rx Last Taken Unknown] spironolactone 25 mg tablet 25 mg PO DAILY #30 tab 09/23/20 [Rx Last Taken Unknown] furosemide 40 mg tablet 40 mg PO DAILY #90 tab 01/26/21 [Rx Last Taken Unknown] carvedilol 6.25 mg tablet 6.25 mg PO BID #60 tab 01/30/21 [Rx Last Taken Unknown] doxycycline hyclate 100 mg PO BID 03/17/21 [History Last Taken Unknown] Allergy/AdvReac Type Severity Reaction Status Date / Time atorvastatin AdvReac Shortness Verified 01/26/21 13:09 of breath Family History Mother Asthma CHF (congestive heart failure) Hypertension Father CAD (coronary artery disease) Age of 55 Myocardial infarction Sister Asthma Diabetes Thyroid disorder Myocardial infarction Hypertension Cancer Thyroid Sister Diabetes Thyroid disorder Hypertension Surgical History Hernia History of appendectomy History of coronary artery stent placement (01/20/10) History of implantable cardiac defibrillator (ICD) (03/16/18) Social History Smoking Status: Current every day smoker tobacco type: cigarettes Physical Exam Const alert and oriented x3 General Appearance: cooperative and frail Eyes Eyes Narrative: Scleral icterus present Resp normal respiratory effort GI GI Narrative: Mildly distended, no visible herniation, soft, mildly tender to deep palpation in the right upper quadrant and left upper quadrant (right greater than left). Negative White sign Skin General Skin Exam: jaundice Lab / Micro Data Result Diagrams: 03/17/21 16:32 03/17/21 16:23 Labs: Laboratory Results - last 24 hr 03/17/21 16:23: Sodium 130 L, Potassium 4.8, Chloride 93 L, Carbon Dioxide 25.0, Anion Gap 12, BUN 44 H, Creatinine 1.32 H, Estim Creat Clear Calc 60.21, Est GFR (MDRD) Af Amer 70, Est GFR (MDRD) Non-Af 58 L, BUN/Creatinine Ratio 33.3 H, Glucose 106, Calcium 9.2, Total Bilirubin 3.90 H, AST 274 H, ALT 629 H, Alkaline Phosphatase 164 H, Troponin I High Sens 25, Total Protein 7.1, Albumin 3.6, Globulin 3.5, Albumin/Globulin Ratio 1.0, Lipase 20 L 03/17/21 16:23: Lactic Acid 3.0 H* 03/17/21 16:32: WBC 10.9, RBC 5.12, Hgb 15.9, Hct 48.6, MCV 94.9 H, MCH 31.1, MCHC 32.7, RDW Std Deviation 50.1 H, RDW Coeff of Maddie 14.6, Plt Count 258, MPV 10.8, Immature Gran % (Auto) 0.600, Neut % (Auto) 66.3, Lymph % (Auto) 21.1, [place] % (Auto) 11.6 H, Eos % (Auto) 0.2, Baso % (Auto) 0.2, Absolute Neuts (auto) 7.2, Absolute Lymphs (auto) 2.29, Nucleated RBC % 0.5 03/17/21 16:43: Urine Color [place], Urine Clarity Clear, Urine pH 5.0, Ur Specific [place] 1.025, Urine Protein 30 H, Urine Glucose (UA) Normal, Urine Ketones 5 H, Urine Occult Blood Negative, Urine Nitrite Negative, Urine Bilirubin Negative, Urine Urobilinogen 1 H, Ur Leukocyte Esterase Negative, Urine RBC 0 SEEN, Urine WBC 0 SEEN, Ur Squamous Epith Cells 0 SEEN, Urine Bacteria 1+, Hyaline Casts 0-5 SEEN, Urine Mucus 0 SEEN Radiology Impression Abdomen/Pelvis CT 03/17/21 15:13 IMPRESSION: Ascites. Mildly thick-walled gallbladder may be reactive, gallbladder sludge. Cholecystitis, while considered unlikely should be excluded clinically. Chronic occlusion of the right common iliac artery and severe diffuse atherosclerotic disease. Electronically Signed: Chandu Portillo MD at 18:02 EST Tel , Service support , ADDENDUM: 03/17/21 1128 IMPRESSION: Ascites. Mildly thick-walled gallbladder may be reactive, gallbladder sludge. Cholecystitis, while considered unlikely should be excluded clinically. Chronic occlusion of the right common iliac artery and severe diffuse atherosclerotic disease. N.B. : The above Results were Read Back by Chandu Portillo MD to Joni Butcher MD, , and understanding confirmed on 03/17/2021 18:08:06 (ET). Electronically Signed: Chandu Portillo MD at 18:02 EST Tel , Service support , Charges/Coding Visit Charges Inpatient E&M: 26902 Init Hosp L2
[2021-03-17] MEDS: Furosemide 100 MG/10 ML Vial 80 MG IV (19:33)
[2021-03-17 19:37] LABS: BNP,B-Type NATRIURETIC PEPTIDE 1612.5 pg/mL (0-100)
[2021-03-17 20:14] VITALS: BP 125/80; PULSE 98; RESP 16; TEMP 36.6; O2SAT 98
--- NOTE | 2021-03-17 20:14 | HP.PCM.HOS_ITS ---
HPI - General General Date of Admission: 03/17/21 HPI Narrative KAMERON KOHLI, is a 65 M with significant history of lung cancer; tobacco abuse (reports he quit a week ago) and COPD; heart failure with reduced ejection fraction and with ICD who presents emergency department with 2 to 3 weeks of progressively worsening abdominal bloating. Onset of her symptoms is abdominal pain and back pain. Also patient has been turning yellow and his urine has been dark. He reports orthopnea; proximal nocturnal dyspnea; and inability to sleep secondary to abdominal bloating. His thinks that patient has lost some weight [facility] Medical History Atherosclerosis of [place] coronary artery of [place] heart without angina pectoris Cardiac arrest COPD (chronic obstructive pulmonary disease) Coronary artery disease CVA (cerebral vascular accident) Hypertension ICD (implantable cardioverter-defibrillator) in place Ischemic cardiomyopathy (12/2009) Lung cancer, upper lobe Nicotine dependence Non-sustained ventricular tachycardia Old anterior wall myocardial infarction Peripheral vascular occlusive disease Home Medications albuterol sulfate 90 mcg/actuation aerosol inhaler 2 inh INHALATION Q6H PRN 07/10/19 [History Last Taken Unknown] aspirin 325 mg tablet 325 mg PO DAILY 02/26/20 [History Last Taken 03/16/21] coenzyme Q10 10 mg capsule 10 mg PO DAILY cap 02/26/20 [History Last Taken 03/16/21] cholecalciferol (vitamin D3) 1,250 mcg (50,000 unit) capsule 1,250 mcg PO QWEEK 09/23/20 [History Last Taken 03/16/21] spironolactone 25 mg tablet 25 mg PO DAILY #30 tab 09/23/20 [Rx Last Taken 03/16/21] furosemide 40 mg tablet 40 mg PO DAILY #90 tab 01/26/21 [Rx Last Taken 03/16/21] carvedilol 6.25 mg tablet 6.25 mg PO BID #60 tab 01/30/21 [Rx Last Taken 03/16/21] doxycycline hyclate 100 mg PO BID 03/17/21 [History Last Taken 03/16/21] rosuvastatin [Crestor] 40 mg PO DAILY 03/17/21 [History Last Taken 03/16/21] Allergy/AdvReac Type Severity Reaction Status Date / Time atorvastatin AdvReac Shortness Verified 01/26/21 13:09 of breath Family History Mother Asthma CHF (congestive heart failure) Hypertension Father CAD (coronary artery disease) Age of 55 Myocardial infarction Sister Asthma Diabetes Thyroid disorder Myocardial infarction Hypertension Cancer Thyroid Sister Diabetes Thyroid disorder Hypertension Surgical History Hernia History of appendectomy History of coronary artery stent placement (01/20/10) History of implantable cardiac defibrillator (ICD) (03/16/18) Social History Smoking Status: Current every day smoker tobacco type: cigarettes ROS ROS Narrative Pertinent positives and pertinent negatives as noted in HPI. All other systems were reviewed and are negative. Vital Signs Vital Signs Vital Signs: 03/17/21 14:54 03/17/21 15:32 03/17/21 19:11 Temperature 97.4 F L 97.9 F Temperature Source Temporal Temporal Pulse Rate 88 75 Respiratory Rate 18 16 Respiratory Effort Short of Breath Blood Pressure 144/91 H 121/93 H Blood Pressure Mean 108 102 Pulse Ox 100 99 Oxygen Delivery Method Room Air Room Air Weight Weight: 78.925 kg Body Mass Index (BMI) 24.3 Physical Exam Narrative Physical exam: General: Well-nourished, well-developed. Head: Normocephalic, atraumatic, no tenderness Eyes: Scleral icterus. PERRLA, EOMI ENT, no trauma, moist mucous membranes, no rhinorrhea Neck: Nontender, full range of motion, no spinal tenderness, deformities, step- off CVS: Regular rate and rhythm. S1-S2 present. No murmur, gallop or rub. Respiratory : Faint wheezes and rales. Chest wall nontender, no wheezing Abdomen: Soft, nontender, nondistended, normal bowel sounds, no masses : Deferred Back: Nontender, no CVA tenderness, no midline spinal tenderness, deformities, step-offs Extremities: Nontender full range of motion, no trauma Skin: Jaundiced. No trauma, abrasions Neuro: Alert, oriented, cranial nerves II through XII grossly intact. Psychiatry: Normal mood. Normal affect. Not depressed. Not anxious. Results Lab / Micro Data Result Diagrams: 03/17/21 16:32 03/17/21 16:23 Labs: Laboratory Results - last 24 hr 03/17/21 16:23: Sodium 130 L, Potassium 4.8, Chloride 93 L, Carbon Dioxide 25.0, Anion Gap 12, BUN 44 H, Creatinine 1.32 H, Estim Creat Clear Calc 60.21, Est GFR (MDRD) Af Amer 70, Est GFR (MDRD) Non-Af 58 L, BUN/Creatinine Ratio 33.3 H, Glucose 106, Calcium 9.2, Total Bilirubin 3.90 H, AST 274 H, ALT 629 H, Alkaline Phosphatase 164 H, Troponin I High Sens 25, Total Protein 7.1, Albumin 3.6, Globulin 3.5, Albumin/Globulin Ratio 1.0, Lipase 20 L 03/17/21 16:23: Lactic Acid 3.0 H* 03/17/21 16:32: WBC 10.9, RBC 5.12, Hgb 15.9, Hct 48.6, MCV 94.9 H, MCH 31.1, MCHC 32.7, RDW Std Deviation 50.1 H, RDW Coeff of [place] 14.6, Plt Count 258, MPV 10.8, Immature Gran % (Auto) 0.600, Neut % (Auto) 66.3, Lymph % (Auto) 21.1, [place] % (Auto) 11.6 H, Eos % (Auto) 0.2, Baso % (Auto) 0.2, Absolute Neuts (auto) 7.2, Absolute Lymphs (auto) 2.29, Nucleated RBC % 0.5 03/17/21 16:32: B-Natriuretic Peptide 1612.5 H 03/17/21 16:43: Urine Color Jo, Urine Clarity Clear, Urine pH 5.0, Ur Specific [place] 1.025, Urine Protein 30 H, Urine Glucose (UA) Normal, Urine Ketones 5 H, Urine Occult Blood Negative, Urine Nitrite Negative, Urine Bilirubin Negative, Urine Urobilinogen 1 H, Ur Leukocyte Esterase Negative, Urine RBC 0 SEEN, Urine WBC 0 SEEN, Ur Squamous Epith Cells 0 SEEN, Urine Bacte paramjit 1+, Hyaline Casts 0-5 SEEN, Urine Mucus 0 SEEN Micro: Microbiology 03/17/21 18:50 Nasal Secretion SARS-CoV-2 Antigen (Rapid) - Final Radiology Impression Abdomen/Pelvis CT 03/17/21 15:13 IMPRESSION: Ascites. Mildly thick-walled gallbladder may be reactive, gallbladder sludge. Cholecystitis, while considered unlikely should be excluded clinically. Chronic occlusion of the right common iliac artery and severe diffuse atherosclerotic disease. Electronically Signed: Chandu Portillo MD at 18:02 EST Tel , Service support , ADDENDUM: 03/17/21 1815 IMPRESSION: Ascites. Mildly thick-walled gallbladder may be reactive, gallbladder sludge. Cholecystitis, while considered unlikely should be excluded clinically. Chronic occlusion of the right common iliac artery and severe diffuse atherosclerotic disease. N.B. : The above Results were Read Back by Chandu Portillo MD to Joni Butcher MD, MD, and understanding confirmed on 03/17/2021 18:08:06 (ET). Electronically Signed: Chandu Portillo MD at 18:02 EST Tel , Service support , Gallbladder Ultrasound 03/17/21 18:20 IMPRESSION: Ascites and mild pericholecystic fluid. Sonographic MISHRA sign is negative. Hepatic steatosis. Electronically Signed: Chandu Portillo MD at 19:46 EST Tel , Service support , Chest X-Ray 03/17/21 18:42 IMPRESSION: Findings suggest CHF and pulmonary edema. Superimposed pneumonia should be excluded clinically. Electronically Signed: Chandu Portillo MD at 19:25 EST Tel , Service support , Assessment & Plan Assessment/Plan (1) Hyperbilirubinemia: (2) Heart failure with reduced ejection fraction: PLAN: Hyperbilirubinemia and elevated liver enzymes Abdomen and pelvis CT; and gallbladder ultrasound was independently interpreted. I agree radiologist interpretation. Gallbladder wall is mildly thickened and there is ascites with mild pericholecystic fluid. Zosyn started at the ED per general surgery recommendation. General surgery consulted. AST, ALT, alkaline phosphatase and lactulose dehydrogenase. Elevation in AST and ALT is new. Alkaline phosphatase elevation was also present on 01/26/2021 and 08/07/2020. We will check hepatitis panel. Hold Cj. GI consult and general surgery consulted N.p.o. after midnight Acute Exacerbation of heart failure with reduced ejection fraction Patient with ICD in place. Last echocardiogram on file was on 03/25/2020. Echocardiogram at that time showed ejection fraction of 20% and stage III diastolic dysfunction. Mild eccentric mitral valve insufficiency. Moderate tricuspid valve insufficiency. Pulmonary artery systolic pressure was 55 mmHg moderate pulmonary hypertension. Place on monitored bed at progressive care unit. Weight on admission to the floor; and then daily Strict I&O's BNP was elevated at 1,612.5. His BNP on 08/07/2020 was 1,254. CXR independently interpreted showed vascular congestion. EKG independently reviewed showed left bundle branch block, unchanged. On home p.o. Lasix. Received 80 mg IV push this at emergency department. Lasix 40 mg IV twice daily ordered. CMP showed a potassium of 4.8. Trend BMP. Monitor electrolytes and renal function Fluid restriction of 1500 ml daily Rapid COVID antigen was negative. Of note patient has received 2 shots of COVID vaccination; and yet to receive a booster. Cardiac diet Lactic acidosis Initial lactic acid was 3.0. Likely secondary to poor clearance from liver/liver congestion from CHF. Lactic acid was repeated with repeated value of 2.9. DVT Prophylaxis: SCD ordered. Charges/Coding Visit Charges Inpatient E&M: 57901 Init Hosp L3
--- NOTE | 2021-03-17 20:15 | EX.PCM.CON.G ---
HPI Consult Data Date of Consult: 03/17/21 HPI Narrative HPI Narrative: KAMERON KOHLI, is a 65 M who presents shortness of breath, constipation, nausea and vomiting, increasing abdominal discomfort, and now jaundiced. He has no past medical history of liver disease. He has a history of coronary artery disease status post ventricular fibrillation arrest and totally occluded LAD with bare-metal stent placement to proximal mid segment in December 2009. He also has a history of ischemic cardiomyopathy, AICD placement in August 2010 with generator change on 03/16/2018, malignant neoplasm of upper lobe left bronchus with previous radiation therapy, and tobacco abuse. In the ED his biochemical profile showed jaundice with cholestatic hepatitis. He has not taken any recent Tylenol products. He has not of hepatitis C, he has never received a blood transfusion. He does not drink any alcohol. CT scan of the abdomen pelvis did not show any ductal dilation. And noted a normal size liver without any filling defects in the common bile duct or intrahepatic ducts. There was also no masses seen in the liver. An ultrasound had showed heterogenicity of the liver with normal size and some sludge in the gallbladder without a sonographic White sign. [facility] Medical History Atherosclerosis of [place] coronary artery of [place] heart without angina pectoris Cardiac arrest COPD (chronic obstructive pulmonary disease) Coronary artery disease CVA (cerebral vascular accident) Hypertension ICD (implantable cardioverter-defibrillator) in place Ischemic cardiomyopathy (12/2009) Lung cancer, upper lobe Nicotine dependence Non-sustained ventricular tachycardia Old anterior wall myocardial infarction Peripheral vascular occlusive disease Home Medications albuterol sulfate 90 mcg/actuation aerosol inhaler 2 inh INHALATION Q6H PRN 07/10/19 [History Last Taken Unknown] aspirin 325 mg tablet 325 mg PO DAILY 02/26/20 [History Last Taken Unknown] coenzyme Q10 10 mg capsule 10 mg PO DAILY cap 02/26/20 [History Last Taken Unknown] cholecalciferol (vitamin D3) 1,250 mcg (50,000 unit) capsule 1,250 mcg PO QWEEK 09/23/20 [History Last Taken Unknown] rosuvastatin 40 mg tablet 40 mg PO DAILY #90 tab 09/23/20 [Rx Last Taken Unknown] spironolactone 25 mg tablet 25 mg PO DAILY #30 tab 09/23/20 [Rx Last Taken Unknown] furosemide 40 mg tablet 40 mg PO DAILY #90 tab 01/26/21 [Rx Last Taken Unknown] carvedilol 6.25 mg tablet 6.25 mg PO BID #60 tab 01/30/21 [Rx Last Taken Unknown] doxycycline hyclate 100 mg PO BID 03/17/21 [History Last Taken Unknown] Allergy/AdvReac Type Severity Reaction Status Date / Time atorvastatin AdvReac Shortness Verified 01/26/21 13:09 of breath Family History (Reviewed 01/26/21 @ 13:09 by Jaquelin Nichols [employer], [employer]ING [employer]PER[employer]-C) Mother Asthma CHF (congestive heart failure) Hypertension Father CAD (coronary artery disease) Age of 55 Myocardial infarction Sister Asthma Diabetes Thyroid disorder Myocardial infarction Hypertension Cancer Thyroid Sister Diabetes Thyroid disorder Hypertension Surgical History Hernia History of appendectomy History of coronary artery stent placement (01/20/10) History of implantable cardiac defibrillator (ICD) (03/16/18) Social History Smoking Status: Current every day smoker tobacco type: cigarettes ROS Gastrointestinal Gastrointestinal: Reports abdominal pain, bloating, dyspepsia and nausea Physical Exam Const alert General Appearance: cooperative Orientation / Consciousness: oriented to person HEENT hearing grossly normal bilaterally Head and Scalp: normal to inspection Face and Sinus: face symmetric Nose: external nose normal Mouth: oral and palatal mucosa normal Eyes conjunctivae normal General Eye: normal appearance of both eyes Neck full ROM General: normal visual inspection Lymph Lymphatic: no lymphadenopathy noted Chest inspection of chest normal and palpation of chest normal Chest: symmetrical chest wall rise Resp normal respiratory effort Effort and Inspection: able to speak in complete sentences Cardio regular rate GI non-distended Percussion: normal to percussion Rectal Exam: deferred Neuro Speech: speech normal Gait (Neuro): normal gait Lab / Micro Data Result Diagrams: 03/17/21 16:32 03/17/21 16:23 Labs: Laboratory Results - last 24 hr 03/17/21 16:23: Sodium 130 L, Potassium 4.8, Chloride 93 L, Carbon Dioxide 25.0, Anion Gap 12, BUN 44 H, Creatinine 1.32 H, Estim Creat Clear Calc 60.21, Est GFR (MDRD) Af Amer 70, Est GFR (MDRD) Non-Af 58 L, BUN/Creatinine Ratio 33.3 H, Glucose 106, Calcium 9.2, Total Bilirubin 3.90 H, AST 274 H, ALT 629 H, Alkaline Phosphatase 164 H, Troponin I High Sens 25, Total Protein 7.1, Albumin 3.6, Globulin 3.5, Albumin/Globulin Ratio 1.0, Lipase 20 L 03/17/21 16:23: Lactic Acid 3.0 H* 03/17/21 16:32: WBC 10.9, RBC 5.12, Hgb 15.9, Hct 48.6, MCV 94.9 H, MCH 31.1, MCHC 32.7, RDW Std Deviation 50.1 H, RDW Coeff of Maddie 14.6, Plt Count 258, MPV 10.8, Immature Gran % (Auto) 0.600, Neut % (Auto) 66.3, Lymph % (Auto) 21.1, [place] % (Auto) 11.6 H, Eos % (Auto) 0.2, Baso % (Auto) 0.2, Absolute Neuts (auto) 7.2, Absolute Lymphs (auto) 2.29, Nucleated RBC % 0.5 03/17/21 16:32: B-Natriuretic Peptide 1612.5 H 03/17/21 16:43: Urine Color Jo, Urine Clarity Clear, Urine pH 5.0, Ur Specific [place] 1.025, Urine Protein 30 H, Urine Glucose (UA) Normal, Urine Ketones 5 H, Urine Occult Blood Negative, Urine Nitrite Negative, Urine Bilirubin Negative, Urine Urobilinogen 1 H, Ur Leukocyte Esterase Negative, Urine RBC 0 SEEN, Urine WBC 0 SEEN, Ur Squamous Epith Cells 0 SEEN, Urine Bacteria 1+, Hyaline Casts 0-5 SEEN, Urine Mucus 0 SEEN Micro: Microbiology 03/17/21 18:50 Nasal Secretion SARS-CoV-2 Antigen (Rapid) - Final Radiology Impression Abdomen/Pelvis CT 03/17/21 15:13 IMPRESSION: Ascites. Mildly thick-walled gallbladder may be reactive, gallbladder sludge. Cholecystitis, while considered unlikely should be excluded clinically. Chronic occlusion of the right common iliac artery and severe diffuse atherosclerotic disease. Electronically Signed: Chandu Portillo MD at 18:02 EST Tel , Service support , ADDENDUM: 03/17/21 1815 IMPRESSION: Ascites. Mildly thick-walled gallbladder may be reactive, gallbladder sludge. Cholecystitis, while considered unlikely should be excluded clinically. Chronic occlusion of the right common iliac artery and severe diffuse atherosclerotic disease. N.B. : The above Results were Read Back by Chandu Portillo MD to Joni Butcher MD, MD, and understanding confirmed on 03/17/2021 18:08:06 (ET). Electronically Signed: Chandu Portillo MD at 18:02 EST Tel , Service support , Gallbladder Ultrasound 03/17/21 18:20 IMPRESSION: Ascites and mild pericholecystic fluid. Sonographic WHITE sign is negative. Hepatic steatosis. Electronically Signed: Chandu Portillo MD at 19:46 EST Tel , Service support , Chest X-Ray 03/17/21 18:42 IMPRESSION: Findings suggest CHF and pulmonary edema. Superimposed pneumonia should be excluded clinically. Electronically Signed: Chandu Portillo MD at 19:25 EST Tel , Service support , Assessment & Plan Assessment/Plan (1) Hyperbilirubinemia: PLAN: I would get an MRCP if his BiV AICD is compatible to see if he is has any signs of primary sclerosing cholangitis or primary biliary cirrhosis as the etiology of his increased bilirubin with LFTs. I do not suspect that he has a biliary obstruction secondary to choledocholithiasis however an MRCP would give me a better understanding of his anatomy. (2) Abdominal pain: PLAN: His imaging does show ascites. This could cause his abdominal pain due to increased fluid in the abdomen. There is no sign of compartment syndrome. The differential diagnosis for increased LFTs and new-onset ascites would be Budd-Chiari ( hepatic vein thrombosis), portal vein thrombosis. (3) Hepatitis: PLAN: The difference of the Increased liver function tests along with transaminitis in a gentleman with ischemic cardiomyopathy, CHF and with out any ductal dilation on current examination would be cardiogenic cirrhosis. This will be top on the differential diagnosis. He should also be checked for acute viral hepatitis and an acetaminophen level should be drawn. Charges/Coding Visit Charges Inpatient E&M: 72171 Init Hosp L3
--- NOTE | 2021-03-17 20:35 | CASEMGMT ---
RN CM to room to meet with patient for initial transition planning/care coordination assessment. RN SANDRA introduced self and role at [facility]. Patient voices understanding and consents to assessment at this time. Patient's Nory present at bedside. Patient is alert and oriented, sitting up on ER cart in no apparent distress and answers all questions appropriately. Care providers, pharmacy, and demographics verified/updated at this time. PCP: Aurora Solo CLIENT SUPPORT ANALYST Specialists: Ainsley- cardiology, Dr. Banks (radiation oncologist, [facility]) Preferred Pharmacy: [facility] Insurance: [employer] [facility] Prescription Benefit: yes Living Will/HPOA: Patient denies having a living will or HPOA. LNOK: , Nory King Living Arrangements: Patient lives with in mobile home with 2 steps to enter and a handrail present. Patient states independent with ADLs prior to hospitalization. Smoking/ETOH: Patient states he quit smoking 1 week ago, denies ETOH or drug use Transportation: Patient drives self and denies transportation concerns. DME/HHC/SNF: Patient ambulates independently without the use of an assistive device. Available DME in home: shower chair. Denies previous HHC or SNF stays. Patient has no concerns with going home at time of discharge. CM to follow for any discharge planning/needs. Patient and voice no concerns/needs at this time. Advised patient and to ask for CM if any questions/concerns/needs arise. Voices understanding. Plan: home
[2021-03-17 20:37] LABS: Reflex Lactate? Y
[2021-03-17 21:02] VITALS: BMI 25.9
--- NOTE | 2021-03-17 21:02 | PCS.PANDOC ---
PANDEMIC DOCUMENTATION INITIATED: Date: 10/13/2020 Time: 190
[2021-03-17 21:19] VITALS: BP 126/96; PULSE 80; RESP 18; TEMP 36.2; O2SAT 100
[2021-03-17] MEDS: Carvedilol 6.25 MG Tablet PO (21:36)
[2021-03-17 21:40] VITALS: PULSE 85
[2021-03-17] MEDS: MELATONIN 3 MG TABLET PO (21:50)
[2021-03-17 21:51] VITALS: O2SAT 98
[2021-03-17 22:01] LABS: LDH 494 U/L (87-241)
[2021-03-17 22:14] LABS: Acetaminophen (Tylenol) Level < 2.0 ug/mL (10.0-30.0)
[2021-03-17 22:16] LABS: Lactic Acid 2.9 mmol/L (0.4-1.9)
--- NOTE | 2021-03-17 22:28 | ECHOD_ITS ---
Reason For Study: CHF Procedure This was a 2D Doppler, Color Flow transthoracic echocardiogram. The study was technically difficult. Exam performed portable in patient room. Left Ventricle Severely dilated left ventricle. Laminated thrombus in apex. The estimated ejection fraction is 15 %. Severe segmental systolic dysfunction (see wall motion). Stage 3 diastolic dysfunction. [place] : Akinetic. Basal anteroseptal: Hypokinetic. Anterio-Basal: Normal. Lateral-Basal: Normal. Posterior- Basal: Hypokinetic. Infero-Basal: Severely Hypokinetic. Mid-Anterior : Akinetic. Mid-Lateral : Akinetic. Mid-Posterior: Severely Hypokinetic. Mid-Inferior: Severely Hypokinetic. Mid- inferoseptal : Akinetic. Basal inferoseptal: Akinetic. Apical wall motion abnormality may reflect pacemaker activation. Right Ventricle Moderately dilated right ventricle. ICD or pacer leads identified within the right ventricle. Mild to moderate global right ventricular systolic dysfunction. Atria Normal left atrium. Normal right atrium. Mitral Valve Normal mitral valve. Mild (1+) eccentric mitral valve insufficiency. Tricuspid Valve Normal tricuspid valve. Moderate (2+) tricuspid valve insufficiency. Pulmonary artery systolic pressure is 68 mmHg. Pulmonic Valve Normal pulmonic valve. Mild (1+) pulmonic valve insufficiency. Great Vessels Normal aortic root. The pulmonary artery is normal size. Normal inferior vena cava. Pericardium/Pleural No pericardial effusion. MMode/2D Measurements & Calculations LVIDd: 7.0 cm IVSd: 0.67 cm Ao root diam: 3.8 cm LVIDs: 6.6 cm LVPWd: 0.81 cm RVDd: 4.8 cm FS: 5.3 % LAV(MOD-bp): 71.6 ml LVAd ap4: 43.5 cm2 LVAd ap2: 50.6 cm2 LAV(MOD-bp) Indexed: 35.1 ml/m2 LVLd ap4: 8.8 cm LVLd ap2: 9.3 cm LAV(MOD-sp2): 69.3 ml EDV(MOD-sp4): 172.9 ml EDV(MOD-sp2): 235.0 ml LAV(MOD-sp4): 67.6 ml EDV(sp4-el): 183.4 ml EDV(sp2-el): 234.0 ml LVAs ap4: 39.7 cm2 LVAs ap2: 47.2 cm2 LVLs ap4: 8.5 cm LVLs ap2: 8.9 cm ESV(MOD-sp4): 150.1 ml ESV(MOD-sp2): 212.7 ml ESV(sp4-el): 157.4 ml ESV(sp2-el): 213.6 ml EF(MOD-sp4): 13.2 % EF(MOD-sp2): 9.5 % EF(sp4-el): 14.1 % SV(MOD-sp4): 22.8 ml SV(MOD-sp2): 22.3 ml SV(sp4-el): 25.9 ml LA dimension(2D): 4.8 cm LA A4 area: 21.5 cm2 RA A4 area: 17.5 cm2 Doppler Measurements & Calculations MV E max rachid: 100.9 cm/sec Ao V2 max: 65.1 cm/sec LV V1 max: 69.8 cm/sec MV A max rachid: 34.0 cm/sec Ao max P.7 mmHg LV V1 max P.0 mmHg MV E/A: 3.0 PA V2 max: 78.1 cm/sec PI end-d rachid: 194.1 cm/sec TR max rachid: 387.7 cm/sec TR max P.1 mmHg ECHO/Echo Complete Interpretation Summary Severely dilated left ventricle. The estimated ejection fraction is 15 %. Severe segmental systolic dysfunction (see wall motion). Stage 3 diastolic dysfunction. Pulmonary artery systolic pressure is 68 mmHg. Laminated thrombus in apex. Ordering Physician: Jose Pino Referring Physician: MARCOS RIOS Performed By: Michelle Bradley, ROSA, RVT
[2021-03-17] MEDS: CLARIFY ORDER 1 EACH NOTE (22:45)
[2021-03-18] VITALS (12 sets, daily range): BP systolic 114–140; BP diastolic 78–92; PULSE 63–91; RESP 16–18; TEMP 36.3–36.8; O2SAT 95–99
[2021-03-18 06:00] LABS: Absolute Lymphocyte Count 2.39 X10^3/uL (0.83-4.51); Absolute Neutrophil Count 5.7 X10^3/uL (2.0-7.7); Basophil# 0.02 X10^3/uL; Basophil% 0.2 % (0-1); Eosinophil# 0.04 X10^3/uL; Eosinophils% 0.4 % (0-5); Hematocrit 47.2 % (40-54); Hemoglobin 15.4 g/dL (13.0-16.5); Lymphocyte # 2.39 X10^3/ul (0.83-4.51); Lymphocyte % 24.9 % (19-41); Mean Corp Hgb Conc 32.6 g/dL (32-36); Mean Corpuscular Hgb 30.7 pg (27.0-32.0); Mean Platelet Vol. 10.4 fl (6.2-12.0); Monocyte# 1.46 X10^3/uL; Monocyte% 15.2 % (0-10); NRBC Flagged by Analyzer 0.6 % (0-5); Neutrophil # 5.65 X10^3/uL (2.7-7.7); Platelet Count 231 K/mm3 (150-450); RBC Distribution Width CV 14.5 % (11.6-14.6); RBC Distribution Width SD 49.1 fl (35.1-43.9); Red Blood Count 5.02 M/mm3 (4.6-6.2); White Blood Count 9.6 K/mm3 (4.4-11.0)
[2021-03-18 06:46] LABS: AST(SGOT) 250 U/L (15-37); Alanine Aminotransfer ALT/SGPT 609 U/L (16-61); Albumin, Serum 3.5 g/dL (3.2-5.0); Alkaline Phosphatase 164 U/L (45-117); Anion Gap 7 (5-15); BUN 40 mg/dL (7-18); Bilirubin, Direct 1.66 mg/dL (0.00-0.30); Calcium,Total 8.9 mg/dL (8.5-10.1); Chloride 96 mmol/L (98-107); Creatinine, Serum 1.29 mg/dL (0.70-1.30); EST Glomerular Filtration Rate 60 mL/min (>60); Est Glom Filt Rate - Afr Amer 72 mL/min (>60); Estimated Creatinine Clearance 61.61 ml/min; Globulin 3.4 g/dL (2.2-4.2); Glucose 101 mg/dL (74-106); Potassium 4.2 mmol/L (3.5-5.1); Protein, Total 6.9 g/dL (6.4-8.2); Sodium Level 131 mmol/L (136-145)
--- NOTE | 2021-03-18 08:01 | PN.SURG_ITS ---
Subjective Subjective Patient seen and examined during AM rounds. He reports that his abdominal discomfort is somewhat improved. He denies any new complaints. Objective Data Objective Data Vital Signs: Vital Signs Temp Pulse Resp BP Pulse Ox 97.4 F L 81 18 118/87 H 96 03/18/21 03:21 03/18/21 07:00 03/18/21 03:21 03/18/21 03:21 03/18/21 03:21 Oxygen Delivery Method Room Air Weight: 186 lb 11.704 oz Body Mass Index (BMI) 25.9 Intake & Output: Intake and Output for Last 24 Hours 03/16/21 03/17/21 03/18/21 23:59 23:59 23:59 Intake Total 797.92 / 797.92 0 / 0 Output Total 600 / 600 Balance 797.92 / 797.92 -600 / -600 Lab / Micro Data Result Diagrams: 03/18/21 05:30 03/18/21 05:30 Labs: Laboratory Results - last 24 hr 03/17/21 16:23: Sodium 130 L, Potassium 4.8, Chloride 93 L, Carbon Dioxide 25.0, Anion Gap 12, BUN 44 H, Creatinine 1.32 H, Estim Creat Clear Calc 60.21, Est GFR (MDRD) Af Amer 70, Est GFR (MDRD) Non-Af 58 L, BUN/Creatinine Ratio 33.3 H, Glucose 106, Calcium 9.2, Total Bilirubin 3.90 H, AST 274 H, ALT 629 H, Alkaline Phosphatase 164 H, Troponin I High Sens 25, Total Protein 7.1, Albumin 3.6, Globulin 3.5, Albumin/Globulin Ratio 1.0, Lipase 20 L 03/17/21 16:23: Lactic Acid 3.0 H* 03/17/21 16:23: Lactate Dehydrogenase 494 H 03/17/21 16:32: WBC 10.9, RBC 5.12, Hgb 15.9, Hct 48.6, MCV 94.9 H, MCH 31.1, MCHC 32.7, RDW Std Deviation 50.1 H, RDW Coeff of Maddie 14.6, Plt Count 258, MPV 10.8, Immature Gran % (Auto) 0.600, Neut % (Auto) 66.3, Lymph % (Auto) 21.1, [place]rie % (Auto) 11.6 H, Eos % (Auto) 0.2, Baso % (Auto) 0.2, Absolute Neuts (auto) 7.2, Absolute Lymphs (auto) 2.29, Nucleated RBC % 0.5 03/17/21 16:32: B-Natriuretic Peptide 1612.5 H 03/17/21 16:43: Urine Color Jo, Urine Clarity Clear, Urine pH 5.0, Ur Specific [place] 1.025, Urine Protein 30 H, Urine Glucose (UA) Normal, Urine Ketones 5 H, Urine Occult Blood Negative, Urine Nitrite Negative, Urine Billy irubin Negative, Urine Urobilinogen 1 H, Ur Leukocyte Esterase Negative, Urine RBC 0 SEEN, Urine WBC 0 SEEN, Ur Squamous Epith Cells 0 SEEN, Urine Bacteria 1+, Hyaline Casts 0-5 SEEN, Urine Mucus 0 SEEN 03/17/21 21:14: Acetaminophen < 2.0 L 03/17/21 21:14: Lactic Acid 2.9 H* 03/18/21 05:30: WBC 9.6, RBC 5.02, Hgb 15.4, Hct 47.2, MCV 94.0, MCH 30.7, MCHC 32.6, RDW Std Deviation 49.1 H, RDW Coeff of Maddie 14.5, Plt Count 231, MPV 10.4, Immature Gran % (Auto) 0.300, Neut % (Auto) 59.0, Lymph % (Auto) 24.9, [place] % (Auto) 15.2 H, Eos % (Auto) 0.4, Baso % (Auto) 0.2, Absolute Neuts (auto) 5.7, Absolute Lymphs (auto) 2.39, Nucleated RBC % 0.6 03/18/21 05:30: Sodium 131 L, Potassium 4.2, Chloride 96 L, Carbon Dioxide 28.0, Anion Gap 7, BUN 40 H, Creatinine 1.29, Estim Creat Clear Calc 61.61, Est GFR (MDRD) Af Amer 72, Est GFR (MDRD) Non-Af 60, BUN/Creatinine Ratio 31.0 H, Glucose 101, Calcium 8.9, Total Bilirubin 3.40 H, Direct Bilirubin 1.66 H, AST 250 H, ALT 609 H, Alkaline Phosphatase 164 H, Total Protein 6.9, Albumin 3.5, Globulin 3.4, Albumin/Globulin Ratio 1.0 Micro: Microbiology 03/17/21 18:50 Nasal Secretion SARS-CoV-2 Antigen (Rapid) - Final Radiography Diagnostic Testing: Radiology Impression Abdomen/Pelvis CT 03/17/21 15:13 IMPRESSION: Ascites. Mildly thick-walled gallbladder may be reactive, gallbladder sludge. Cholecystitis, while considered unlikely should be excluded clinically. Chronic occlusion of the right common iliac artery and severe diffuse atherosclerotic disease. Electronically Signed: Chandu Portillo MD at 18:02 EST Tel , Service support , ADDENDUM: 03/17/21 1815 IMPRESSION: Ascites. Mildly thick-walled gallbladder may be reactive, gallbladder sludge. Cholecystitis, while considered unlikely should be excluded clinically. Chronic occlusion of the right common iliac artery and severe diffuse atherosclerotic disease. N.B. : The above Results were Read Back by Chandu Portillo MD to Joni Butcher MD, , and understanding confirmed on 03/17/2021 18:08:06 (ET). Electronically Signed: Chandu Portillo MD at 18:02 EST Tel , Service support , Gallbladder Ultrasound 03/17/21 18:20 IMPRESSION: Ascites and mild pericholecystic fluid. Sonographic MISHRA sign is negative. Hepatic steatosis. Electronically Signed: Chandu Portillo MD at 19:46 EST Tel , Service support , Chest X-Ray 03/17/21 18:42 IMPRESSION: Findings suggest CHF and pulmonary edema. Superimposed pneumonia should be excluded clinically. Electronically Signed: Chandu Portillo MD at 19:25 EST Tel , Service support , Physical Exam Const no apparent distress GI GI Narrative: Less abdominal distention, soft, very mildly tender to palpation in the right upper quadrant, otherwise is without discomfort on exam Assessment & Plan Assessment/Plan (1) Right upper quadrant pain: PLAN: Patient with improved symptoms of right upper quadrant pain. His right upper quadrant ultrasound was read yesterday and negative for findings of gallstones. While he does have a cholestatic transaminitis picture, I believe this is less likely to be choledocholithiasis and gastroenterology seems to agree. The presence of perihepatic and perisplenic ascites is suggestive of a cardiogenic source coupled with patient's history of severe ischemic cardiomyopathy and associated systolic dysfunction. At this time I will await additional work-up to more definitively exclude choledocholithiasis, but also better understand the patient's cardiac and hepatic physiology. Given his present degree of decompensated heart failure he is a prohibitive surgical candidate.
--- NOTE | 2021-03-18 10:37 | MRI_ITS ---
STUDY: MR CHOLANGIOPANCREATOGRAPHY (MRCP) REASON FOR EXAM: Male, 65 years old. PAIN CBD STONES PANCREATITIS abdominal pain, ELEVATED LIVER ENZYMES, HX LUNG CA TECHNIQUE: Standard MRCP technique was utilized. 3-D postprocessing images were obtained. COMPARISON: 03.17.21. FINDINGS: Free fluid around the liver and spleen. There are calcifications of the abdominal aorta. This is consistent for atherosclerotic disease. There is no abdominal aortic aneurysm. Gall Bladder: Normal gallbladder and extrahepatic biliary system. Cystic duct: Normal with no demonstrated fixed filling defect. Intrahepatic ducts: Normal visualized intrahepatic ducts with no demonstrated fixed filling defect, dilation or stricture. Common hepatic duct: Normal with no demonstrated fixed filling defect, dilation or stricture. Common bile duct: Normal with no demonstrated fixed filling defect, dilation or stricture. Pancreatic duct: Normal with no demonstrated fixed filling defect, dilation or stricture. MRI/MRCP Abdomen without Contrast IMPRESSION: No gallstones. Ascites. Electronically Signed: Shorty Hidalgo MD at 14:35 EST , Service support ,
--- NOTE | 2021-03-18 11:32 | PN.HOSP_ITS ---
Documented by User: Noreen Cooney NP-C 03/18/21 11:43 Subjective Subjective Patient seen and examined. Patient sitting in bed no distress noted. Patient reports that abdominal pain has improved but is still there. Received call from conservation technician that patient's pacer/ICD is compatible with MRI. MRCP ordered Objective Data Objective Data Vital Signs: Vital Signs Temp Pulse Resp BP Pulse Ox 97.5 F L 75 18 133/92 H 99 03/18/21 09:20 03/18/21 11:00 03/18/21 09:20 03/18/21 09:20 03/18/21 09:20 Oxygen Delivery Method Room Air Weight: 186 lb 11.704 oz Body Mass Index (BMI) 25.9 Intake & Output: Intake and Output for Last 24 Hours 03/16/21 03/17/21 03/18/21 23:59 23:59 23:59 Intake Total 797.92 / 797.92 50 / 50 Output Total 600 / 600 Balance 797.92 / 797.92 -550 / -550 Lab / Micro Data Result Diagrams: 03/18/21 05:30 03/18/21 05:30 Labs: Laboratory Results - last 24 hr 03/17/21 16:23: Sodium 130 L, Potassium 4.8, Chloride 93 L, Carbon Dioxide 25.0, Anion Gap 12, BUN 44 H, Creatinine 1.32 H, Estim Creat Clear Calc 60.21, Est GFR (MDRD) Af Amer 70, Est GFR (MDRD) Non-Af 58 L, BUN/Creatinine Ratio 33.3 H, Glucose 106, Calcium 9.2, Total Bilirubin 3.90 H, AST 274 H, ALT 629 H, Alkaline Phosphatase 164 H, Troponin I High Sens 25, Total Protein 7.1, Albumin 3.6, Globulin 3.5, Albumin/Globulin Ratio 1.0, Lipase 20 L 03/17/21 16:23: Lactic Acid 3.0 H* 03/17/21 16:23: Lactate Dehydrogenase 494 H 03/17/21 16:32: WBC 10.9, RBC 5.12, Hgb 15.9, Hct 48.6, MCV 94.9 H, MCH 31.1, MCHC 32.7, RDW Std Deviation 50.1 H, RDW Coeff of Maddie 14.6, Plt Count 258, MPV 10.8, Immature Gran % (Auto) 0.600, Neut % (Auto) 66.3, Lymph % (Auto) 21.1, [place] % (Auto) 11.6 H, Eos % (Auto) 0.2, Baso % (Auto) 0.2, Absolute Neuts (auto) 7.2, Absolute Lymphs (auto) 2.29, Nucleated RBC % 0.5 03/17/21 16:32: B-Natriuretic Peptide 1612.5 H 03/17/21 16:43: Urine Color Jo, Urine Clarity Clear, Urine pH 5.0, Ur Specific [place] 1.025, Urine Protein 30 H, Urine Glucose (UA) Normal, Urine Ketones 5 H, Urine Occult Blood Negative, Urine Nitrite Negative, Urine Bilirubin Negative, Urine Urobilinogen 1 H, Ur Leukocyte Esterase Negative, Urine RBC 0 SEEN, Urine WBC 0 SEEN, Ur Squamous Epith Cells 0 SEEN, Urine Bacteria 1+, Hyaline Casts 0-5 SEEN, Urine Mucus 0 SEEN 03/17/21 21:14: Acetaminophen < 2.0 L 03/17/21 21:14: Lactic Acid 2.9 H* 03/18/21 05:30: WBC 9.6, RBC 5.02, Hgb 15.4, Hct 47.2, MCV 94.0, MCH 30.7, MCHC 32.6, RDW Std Deviation 49.1 H, RDW Coeff of Maddie 14.5, Plt Count 231, MPV 10.4, Immature Gran % (Auto) 0.300, Neut % (Auto) 59.0, Lymph % (Auto) 24.9, [place] % (Auto) 15.2 H, Eos % (Auto) 0.4, Baso % (Auto) 0.2, Absolute Neuts (auto) 5.7, Absolute Lymphs (auto) 2.39, Nucleated RBC % 0.6 03/18/21 05:30: Sodium 131 L, Potassium 4.2, Chloride 96 L, Carbon Dioxide 28.0, Anion Gap 7, BUN 40 H, Creatinine 1.29, Estim Creat Clear Calc 61.61, Est GFR (MDRD) Af Amer 72, Est GFR (MDRD) Non-Af 60, BUN/Creatinine Ratio 31.0 H, Glucose 101, Calcium 8.9, Total Bilirubin 3.40 H, Direct Bilirubin 1.66 H, AST 250 H, ALT 609 H, Alkaline Phosphatase 164 H, Total Protein 6.9, Albumin 3.5, Globulin 3.4, Albumin/Globulin Ratio 1.0 Micro: Microbiology 03/17/21 18:50 Nasal Secretion SARS-CoV-2 Antigen (Rapid) - Final Radiography Diagnostic Testing: Radiology Impression Abdomen/Pelvis CT 03/17/21 15:13 IMPRESSION: Ascites. Mildly thick-walled gallbladder may be reactive, gallbladder sludge. Cholecystitis, while considered unlikely should be excluded clinically. Chronic occlusion of the right common iliac artery and severe diffuse atherosclerotic disease. Electronically Signed: Chandu Portillo MD at 18:02 EST Tel , Service support , ADDENDUM: 03/17/21 1815 IMPRESSION: Ascites. Mildly thick-walled gallbladder may be reactive, gallbladder sludge. Cholecystitis, while considered unlikely should be excluded clinically. Chronic occlusion of the right common iliac artery and severe diffuse atherosclerotic disease. N.B. : The above Results were Read Back by Chandu Portillo MD to Joni Butcher MD, , and understanding confirmed on 03/17/2021 18:08:06 (ET). Electronically Signed: Chandu Portillo MD at 18:02 EST Tel , Service support , Gallbladder Ultrasound 03/17/21 18:20 IMPRESSION: Ascites and mild pericholecystic fluid. Sonographic MISHRA sign is negative. Hepatic steatosis. Electronically Signed: Chandu Portillo MD at 19:46 EST Tel , Service support , Chest X-Ray 03/17/21 18:42 IMPRESSION: Findings suggest CHF and pulmonary edema. Superimposed pneumonia should be excluded clinically. Electronically Signed: Chandu Portillo MD at 19:25 EST Tel , Service support , Physical Exam Const alert, oriented x3 and no apparent distress HEENT head/scalp atraumatic Head and Scalp: normocephalic Eyes conjunctivae normal and no scleral icterus Neck full ROM and supple General: trachea midline Resp normal respiratory effort and normal air movement Effort and Inspection: able to speak in complete sentences and symmetric chest movement Auscultation: rales Cardio regular rate, regular rhythm, S1 normal heart sound and S2 normal heart sound GI normal to inspection, nondistended, normoactive bowel sounds and soft to palpation Palpation: tender Extremity normal to inspection and full ROM General Extremity: edema bilateral lower extremity Details: mild Peripheral Pulses: Yes pulses 2+ throughout Skin no rashes or lesions noted, no wounds and skin turgor normal Neuro oriented x3, moves all extremities, no focal motor deficits and no sensory deficits noted Sensorium / Orientation: awake and alert Speech: speech normal Psych affect normal Assessment & Plan Assessment/Plan (1) Hepatitis: (2) CHF (congestive heart failure): QUALIFIERS: Heart failure chronicity: acute on chronic Heart failure type: unspecified Qualified Code(s): I50.9 - Heart failure, unspecified (3) Hyperbilirubinemia: (4) Right upper quadrant pain: PLAN: 1. Right upper quadrant pain -MRCP ordered -Dr. Ortiz and Dr. Lindsay following -Continue IV Zosyn 2. Abnormal liver function tests -Hepatitis panel, LINDA panel pending -Total bilirubin, AST, ALT, alkaline phosphatase improved -LDH elevated 494 3. Acute on chronic diastolic HFrEF -Echocardiogram from 03/25/2020 demonstrates EF 20% with stage III diastolic dysfunction -BNP 1612.5 -continue IV Lasix DVT prophylaxis-SCDs This patient was seen by Noreen Cooney, JAVI-C under the supervision of Dr. Gabby bryant. 13 minutes spent in clinical coordination of patient's plan of care. Documented by User: Dr. Juan Hernandez DO 03/18/21 15:06 Subjective Subjective Feels fine. Denies lower extremity edema. Abdominal distention. Objective Data Lab / Micro Data Result Diagrams: 03/18/21 05:30 03/18/21 05:30 Physical Exam Const alert HEENT head/scalp atraumatic Head and Scalp: normocephalic Resp normal respiratory effort, no retractions, no use of accessory muscles and clear to auscultation bilaterally Cardio regular rate, regular rhythm, S1 normal heart sound and S2 normal heart sound GI non-tender GI Narrative: Abdominal distention, not taut. Extremity normal to inspection and no clubbing, cyanosis or edema Assessment & Plan Assessment/Plan (1) Hyperbilirubinemia: (2) Heart failure with reduced ejection fraction: PLAN: Patient seen and examined independently. Data and vitals reviewed. I agree with the above note by the nurse practitioner. 1. Hyperbilirubinemia and elevated liver transaminases Etiology could be cirrhosis versus passive congestion due to underlying CHF Labs trended down slightly. MRCP negative for any obstructive component Defer to GI whether or not any additional cirrhosis work-up would be necessary Continue with empiric PIP Tazo for now. Likely discontinue in the next 24 hours. 2. Acute heart failure with reduced ejection fraction EF of 15%, down from 20% from last year. Complicated by severe pulm hypertension Continue with furosemide and spironolactone Discussed with the patient's at bedside. Charges/Coding Visit Charges Inpatient E&M: 98332 Subs Hosp L2
--- NOTE | 2021-03-18 13:45 | NURSING ---
PT TOLERATED SCAN WELL. DOROTEO DERAS, RETURNED PATIENT TO PREVIOUS MODE. REPORT CALLED TO DOROTEO WITT.
[2021-03-18] MEDS: Furosemide 40 MG/4 ML Vial IV ×2 (14:37→17:26)
[2021-03-18] MEDS: Aspirin 325 MG Tablet PO (14:37)
[2021-03-18] MEDS: Spironolactone 25 MG Tablet PO (14:37)
[2021-03-18] MEDS: Carvedilol 6.25 MG Tablet PO ×2 (14:37→21:05)
[2021-03-18] MEDS: Ergocalciferol 1.25 MG (50, 000 UNIT) Capsule PO (14:37)
[2021-03-18] MEDS: 0.9% Saline Lock 10 ML Syringe IV ×2 (14:38→17:26)
--- NOTE | 2021-03-18 18:32 | PN_ITS ---
Subjective Subjective Patient said that this is abdominal pain is getting better. He has diuresed some today. He still feels bloated. He underwent MRCP today. He underwent an echocardiogram today. He admits to severe constipation and has not had a bowel movement in 2 weeks. He was having some esophageal dysphagia. However it has improved slightly with diuresis. Objective Data Objective Data Vital Signs: Vital Signs Temp Pulse Resp BP Pulse Ox 97.6 F L 91 18 114/87 H 98 03/18/21 15:20 03/18/21 15:20 03/18/21 15:20 03/18/21 15:20 03/18/21 15:20 Oxygen Delivery Method Room Air Weight: 186 lb 11.704 oz Body Mass Index (BMI) 25.9 Intake & Output: Intake and Output for Last 24 Hours 03/16/21 03/17/21 03/18/21 23:59 23:59 23:59 Intake Total 797.92 / 797.92 170 / 170 Output Total 600 / 600 Balance 797.92 / 797.92 -430 / -430 Lab / Micro Data Result Diagrams: 03/18/21 05:30 03/18/21 05:30 Labs: Laboratory Results - last 24 hr 03/17/21 16:23: Lactate Dehydrogenase 494 H 03/17/21 16:32: B-Natriuretic Peptide 1612.5 H 03/17/21 21:14: Acetaminophen < 2.0 L 03/17/21 21:14: Lactic Acid 2.9 H* 03/18/21 05:30: WBC 9.6, RBC 5.02, Hgb 15.4, Hct 47.2, MCV 94.0, MCH 30.7, MCHC 32.6, RDW Std Deviation 49.1 H, RDW Coeff of Maddie 14.5, Plt Count 231, MPV 10.4, Immature Gran % (Auto) 0.300, Neut % (Auto) 59.0, Lymph % (Auto) 24.9, [place] % (Auto) 15.2 H, Eos % (Auto) 0.4, Baso % (Auto) 0.2, Absolute Neuts (auto) 5.7, Absolute Lymphs (auto) 2.39, Nucleated RBC % 0.6 03/18/21 05:30: Sodium 131 L, Potassium 4.2, Chloride 96 L, Carbon Dioxide 28.0, Anion Gap 7, BUN 40 H, Creatinine 1.29, Estim Creat Clear Calc 61.61, Est GFR (MDRD) Af Amer 72, Est GFR (MDRD) Non-Af 60, BUN/Creatinine Ratio 31.0 H, Glucose 101, Calcium 8.9, Total Bilirubin 3.40 H, Direct Bilirubin 1.66 H, AST 250 H, ALT 609 H, Alkaline Phosphatase 164 H, Total Protein 6.9, Albumin 3.5, Globulin 3.4, Albumin/Globulin Ratio 1.0 Micro: Microbiology 03/17/21 18:50 Nasal Secretion SARS-CoV-2 Antigen (Rapid) - Final Radiography Diagnostic Testing: Radiology Impression Gallbladder Ultrasound 03/17/21 18:20 IMPRESSION: Ascites and mild pericholecystic fluid. Sonographic MISHRA sign is negative. Hepatic steatosis. Electronically Signed: Chandu Portillo MD at 19:46 EST Tel , Service support , Chest X-Ray 03/17/21 18:42 IMPRESSION: Findings suggest CHF and pulmonary edema. Superimposed pneumonia should be excluded clinically. Electronically Signed: Chandu Portillo MD at 19:25 EST Tel , Service support , Echocardiogram 03/17/21 22:28 Interpretation Summary Severely dilated left ventricle. The estimated ejection fraction is 15 %. Severe segmental systolic dysfunction (see wall motion). Stage 3 diastolic dysfunction. Pulmonary artery systolic pressure is 68 mmHg. Laminated thrombus in apex. ____ Ordering Physician: Jose Pino Referring Physician: MARCOS RIOS Performed By: Michelle Bradley, RDCS, RVT 03/18/21 10:37 IMPRESSION: No gallstones. Ascites. Electronically Signed: Shorty Hidalgo MD at 14:35 EST , Service support , Physical Exam Const alert General Appearance: cooperative Orientation / Consciousness: oriented to person HEENT hearing grossly normal bilaterally Head and Scalp: normal to inspection Face and Sinus: face symmetric Nose: external nose normal Mouth: oral and palatal mucosa normal Eyes conjunctivae normal General Eye: normal appearance of both eyes Neck full ROM General: normal visual inspection Lymph Lymphatic: no lymphadenopathy noted Chest inspection of chest normal and palpation of chest normal Chest: symmetrical chest wall rise Resp normal respiratory effort Effort and Inspection: able to speak in complete sentences Cardio regular rate GI non-distended Percussion: normal to percussion Rectal Exam: deferred Neuro Speech: speech normal Gait (Neuro): normal gait Assessment & Plan Assessment/Plan (1) Hepatitis: PLAN: I believe that his liver enzymes are elevated secondary to passive c ongestion from severe ischemic heart disease and CHF. His liver enzymes are improving with diuresis. His MRCP did not show any signs of obstruction or bile duct dilation to make me think that he passed the stone. There is fluid around his liver and the spleen consistent with ascites. (2) Ascites: PLAN: The differential diagnosis for his ascites would be cardiogenic ascites, nephrotic syndrome, portal vein or hepatic vein thrombosis. However there were no clots seen on his ultrasound or MRI. He would have to undergo a diagnostic paracentesis to calculate his SAG gradient to see if it is from the heart. There is no sign of cirrhosis via imaging to definitively say he does not have significant liver disease or micronodular cirrhosis that can be difficult to identify on imaging. He will need a liver biopsy for that diagnosis. Continue diuresis. Charges/Coding Visit Charges Inpatient E&M: 99814 Subs Hosp L3
--- NOTE | 2021-03-19 02:09 | NURSING ---
Pt c/o sob in bed. po 100% on ra. Pt asst to chair. Pt said much better
[2021-03-19 02:10] VITALS: BP 133/98; PULSE 74; RESP 20; TEMP 36.6; O2SAT 100
[2021-03-19 02:11] VITALS: O2SAT 100
[2021-03-19 03:18] VITALS: PULSE 73
[2021-03-19] MEDS: 0.9% Saline Lock 10 ML Syringe IV (05:03)
[2021-03-19 06:22] LABS: Absolute Lymphocyte Count 2.05 X10^3/uL (0.83-4.51); Absolute Neutrophil Count 6.6 X10^3/uL (2.0-7.7); Basophil# 0.02 X10^3/uL; Basophil% 0.2 % (0-1); Eosinophil# 0.04 X10^3/uL; Eosinophils% 0.4 % (0-5); Hematocrit 48.3 % (40-54); Hemoglobin 15.9 g/dL (13.0-16.5); Lymphocyte # 2.05 X10^3/ul (0.83-4.51); Lymphocyte % 20.3 % (19-41); Mean Corp Hgb Conc 32.9 g/dL (32-36); Mean Corpuscular Hgb 31.2 pg (27.0-32.0); Mean Corpuscular Volume 94.9 fL (80-94); Mean Platelet Vol. 10.7 fl (6.2-12.0); Monocyte# 1.31 X10^3/uL; NRBC Flagged by Analyzer 0.3 % (0-5); Neutrophil # 6.58 X10^3/uL (2.7-7.7); Neutrophil % 65.3 % (47-70); Platelet Count 227 K/mm3 (150-450); RBC Distribution Width CV 14.9 % (11.6-14.6); RBC Distribution Width SD 50.6 fl (35.1-43.9); Red Blood Count 5.09 M/mm3 (4.6-6.2); White Blood Count 10.1 K/mm3 (4.4-11.0)
[2021-03-19 06:50] LABS: Anion Gap 7 (5-15); BUN 37 mg/dL (7-18); BUN/Creat Ratio 28.5 RATIO (10-20); Chloride 96 mmol/L (98-107); EST Glomerular Filtration Rate 59 mL/min (>60); Est Glom Filt Rate - Afr Amer 71 mL/min (>60); Estimated Creatinine Clearance 61.14 ml/min; Glucose 127 mg/dL (74-106); Sodium Level 132 mmol/L (136-145)
[2021-03-19 07:02] VITALS: PULSE 77
[2021-03-19 07:08] LABS: HEPATITIS B SURFACE AG Negative (Negative); Hepatitis A IgM Antibody Negative (Negative); Hepatitis B Core AB IgM Negative (Negative)
[2021-03-19 07:45] VITALS: BP 125/86; PULSE 73; RESP 16; TEMP 36.1; O2SAT 97
[2021-03-19] MEDS: Aspirin 325 MG Tablet PO (07:49)
[2021-03-19 08:05] VITALS: O2SAT 96
[2021-03-19 08:18] LABS: AST(SGOT) 224 U/L (15-37); Alanine Aminotransfer ALT/SGPT 552 U/L (16-61); Albumin, Serum 3.5 g/dL (3.2-5.0); Alkaline Phosphatase 155 U/L (45-117); Bilirubin, Direct 1.49 mg/dL (0.00-0.30); Globulin 3.4 g/dL (2.2-4.2); Protein, Total 6.9 g/dL (6.4-8.2)
--- NOTE | 2021-03-19 09:26 | DCINST_ITS ---
Discharge Instructions Diet Discharge Diet: Low fat / Low cholesterol and 8 Cup Fluid Restriction Dressing / Incision Call your doctor if you observe: Shortness of breath and - (increased abdominal distention.) Follow Up Care Test Results: Test results from this visit will be discussed in further detail at your follow-up appointment, if applicable. Discharge Plan Admission Admit Date/Time: 03/17/21 20:04 Primary Reason for Your Visit: Elevated liver labs. CHF Attending Provider: Juan Hernandez Primary Care Provider: Aurora Solo NP Consulting Providers: Desmond Ortiz ; Ryne Lindsay Instructions Patient Instructions: Heart Failure Signs of Flare-Up, Heart Failure: Tracking Your Weight, Heart Failure: Being Active, Heart Failure Making Changes ... Discharge Orders/Prescriptions Prescriptions: New furosemide 40 mg tablet 40 mg PO BID Qty: 60 RF: 0 Continued coenzyme Q10 10 mg capsule 10 mg PO DAILY RF: 0 albuterol sulfate [ProAir HFA] 90 mcg/actuation HFA aerosol inhaler 2 inh INHALATION Q6H PRN (Reason: Wheezing) RF: 0 aspirin 325 mg tablet 325 mg PO DAILY RF: 0 cholecalciferol (vitamin D3) 1,250 mcg (50,000 unit) capsule 1,250 mcg PO QWEEK RF: 0 carvedilol 6.25 mg tablet 6.25 mg PO BID Qty: 60 RF: 11 Changed spironolactone 25 mg tablet 50 mg PO DAILY Qty: 60 RF: 11 Discontinued furosemide [Lasix] 40 mg tablet 40 mg PO DAILY Qty: 90 RF: 3 doxycycline hyclate 100 mg Tablet 100 mg PO BID RF: 0 rosuvastatin [Crestor] 40 mg tablet 40 mg PO DAILY RF: 0 Referrals / Follow Up: Ramin Schmitz MD [STAFF PHYSICIAN] - Within 1 Month Desmond Ortiz DO [STAFF PHYSICIAN] - Within 1 Month Aurora Solo NP, DRUG SAFETY COORDINATOR-C [Primary Care Provider] - Within 1 Week Disposition Disposition (needs filled in before D/C Order can be placed): Home, Self Care
--- NOTE | 2021-03-19 09:37 | DS.PCM_ITS ---
Providers Date of Admission: 03/17/21 Date of Discharge: 03/19/21 Primary Care Physician: KAYLIE Almonte Consultations 03/17/21 21:01 Consult: Gastroenterology Routine Consulting Provider: Desmond Ortiz Reason for Consult: Hyperbilirubinemia EMERGENT Consult: No Notified: Yes Date Notified: 03/17/21 Time Notified: 20:12 Method of Notification: notified via ED Consult: General Surgery Routine Consulting Provider: Rnye Lindsay Reason for Consult: Hyperbilirubinemia EMERGENT Consult: No Notified: Yes Date Notified: 03/17/21 Time Notified: 20:11 Method of Notification: notified via ED Reason For Visit: HYPERBILIRUBINEMIA, ACUTE ON CHRONIC CHF Diagnosis Discharge Diagnosis (1) Hepatitis: Status: Acute Code(s): K75.9 - Inflammatory liver disease, unspecified (2) Ascites: Status: Acute Code(s): R18.8 - Other ascites Medications at Discharge Home Medications albuterol sulfate 90 mcg/actuation aerosol inhaler 2 inh INHALATION Q6H PRN 07/10/19 aspirin 325 mg tablet 325 mg PO DAILY 02/26/20 coenzyme Q10 10 mg capsule 10 mg PO DAILY cap 02/26/20 cholecalciferol (vitamin D3) 1,250 mcg (50,000 unit) capsule 1,250 mcg PO QWEEK 09/23/20 carvedilol 6.25 mg tablet 6.25 mg PO BID #60 tab 01/30/21 furosemide 40 mg PO BID #60 tab 03/19/21 spironolactone 50 mg PO DAILY #60 tab 03/19/21 Hospital Course Operations None Procedures 2-D Echocardiogram Summary of Care Provided Minutes Spent on Discharge: 35 Hospital Course: 65-year-old male with history of lung cancer cardiomyopathy presents with worsening abdominal bloating. Patient had elevated bilirubin as well as liver transaminases. Patient was seen in consultation by gastroenterology and general surgery. He did undergo an MRCP that showed no gallstones or ascites. No surgical intervention was necessary for his gallbladder. Patient did have some mild pericholecystic fluid but this is felt to be related with the patient's underlying ascites. In regards to the patient's liver transaminases and bilirubin those of overall have improved. Etiology may be from his ischemic cardiomyopathy. Patient's ejection fraction is now 15% as well as with pulmonary hypertension. Did discuss with the patient that this may be the etiology of his elevated liver test but cirrhosis is still another possibility. I told him that to verify if he does have cirrhosis that would require a biopsy of his liver. Patient has no interest in a biopsy at this time. He expressed being upset about getting different stories from different doctors. I told him that the best my knowledge is that this may be passive congestion from his heart and it has improved. I did recommend increasing his diuretics from furosemide 40 daily to twice daily and increasing spironolactone from 25-50. Patient does have history of ischemic heart myopathy and his EF is down from 20 to 15%. He has been being managed with diuretics as well as carvedilol. Has not been started on lisinopril and will defer further management to cardiology as outpatient. Additionally explained to the patient he will need follow-up with gastroenterology have additional lab work to see if his liver function has continued to improve or not. Physical Exam Const alert and no apparent distress GI GI Narrative: Slightly distended but not taut. Extremity normal to inspection and no clubbing, cyanosis or edema Weight / BMI Weight Weight: 84.7 kg Body Mass Index (BMI) 25.9 ABG / Lab / Microbiology Data Result Diagrams: 03/19/21 06:04 03/19/21 06:04 Laboratory: Laboratory Results - last 24 hr 03/19/21 06:04: WBC 10.1, RBC 5.09, Hgb 15.9, Hct 48.3, MCV 94.9 H, MCH 31.2, MCHC 32.9, RDW Std Deviation 50.6 H, RDW Coeff of Maddie 14.9 H, Plt Count 227, MPV 10.7, Immature Gran % (Auto) 0.800, Neut % (Auto) 65.3, Lymph % (Auto) 20.3, [place] % (Auto) 13.0 H, Eos % (Auto) 0.4, Baso % (Auto) 0.2, Absolute Neuts (auto) 6.6, Absolute Lymphs (auto) 2.05, Nucleated RBC % 0.3 03/19/21 06:04: Sodium 132 L, Potassium 4.0, Chloride 96 L, Carbon Dioxide 29.0, Anion Gap 7, BUN 37 H, Creatinine 1.30, Estim Creat Clear Calc 61.14, Est GFR (MDRD) Af Amer 71, Est GFR (MDRD) Non-Af 59 L, BUN/Creatinine Ratio 28.5 H, Glucose 127 H, Calcium 9.0 03/19/21 06:04: Total Bilirubin 2.90 H, Direct Bilirubin 1.49 H, AST 224 H, ALT 552 H, Alkaline Phosphatase 155 H, Total Protein 6.9, Albumin 3.5, Globulin 3.4 Microbiology: Microbiology 03/17/21 18:50 Nasal Secretion SARS-CoV-2 Antigen (Rapid) - Final Radiography Diagnostic Testing: Radiology Impression Echocardiogram 03/17/21 22:28 Interpretation Summary Severely dilated left ventricle. The estimated ejection fraction is 15 %. Severe segmental systolic dysfunction (see wall motion). Stage 3 diastolic dysfunction. Pulmonary artery systolic pressure is 68 mmHg. Laminated thrombus in apex. Ordering Physician: Jose Pino Referring Physician: MARCOS RIOS Performed By: Michelle Bradley, RDCS, RVT 03/18/21 10:37 IMPRESSION: No gallstones. Ascites. Electronically Signed: Shorty Hidalgo MD at 14:35 EST , Service support , D/C Instructions Discharge Diet: Low fat / Low cholesterol and 8 Cup Fluid Restriction Call your doctor if you observe: Shortness of breath and - (increased abdominal distention.) Meaningful Use Info Meaningful Use Diagnoses (Choose all that apply): CHF CHF ANN-MARIE/ARB ordered at discharge?: No Reason ANN-MARIE/ARB not ordered?: Not indicated (follow up with cardiology) Documented LVEF (%): 15 Discharge Plan Admission Admit Date/Time: 01/18/22 20:04 Primary Reason for Your Visit: Elevated liver labs. CHF Attending Provider: Juan Hernandez Primary Care Provider: Marcos Rios COMMUNITY SERVICE SPECIALIST Consulting Providers: Desmond Ortiz ; Ryne Lindsay Instructions Patient Instructions: Heart Failure Signs of Flare-Up, Heart Failure: Tracking Your Weight, Heart Failure: Being Active, Heart Failure Making Changes ... Discharge Orders/Prescriptions Prescriptions: New furosemide 40 mg tablet 40 mg PO BID Qty: 60 RF: 0 Continued coenzyme Q10 10 mg capsule 10 mg PO DAILY RF: 0 albuterol sulfate [ProAir HFA] 90 mcg/actuation HFA aerosol inhaler 2 inh INHALATION Q6H PRN (Reason: Wheezing) RF: 0 aspirin 325 mg tablet 325 mg PO DAILY RF: 0 cholecalciferol (vitamin D3) 1,250 mcg (50,000 unit) capsule 1,250 mcg PO QWEEK RF: 0 carvedilol 6.25 mg tablet 6.25 mg PO BID Qty: 60 RF: 11 Changed spironolactone 25 mg tablet 50 mg PO DAILY Qty: 60 RF: 11 Discontinued furosemide [Lasix] 40 mg tablet 40 mg PO DAILY Qty: 90 RF: 3 doxycycline hyclate 100 mg Tablet 100 mg PO BID RF: 0 rosuvastatin [Crestor] 40 mg tablet 40 mg PO DAILY RF: 0 Referrals / Follow Up: Ramin Schmitz MD [STAFF PHYSICIAN] - Within 1 Month Desmond Ortiz DO [STAFF PHYSICIAN] - Within 1 Month Marcos Rios NP, COMMUNITY SERVICE SPECIALIST-C [Primary Care Provider] - Within 1 Week Disposition Disposition (needs filled in before D/C Order can be placed): Home, Self Care Charges/Coding Visit Charges Inpatient E&M: 40367 Disch Hosp
--- NOTE | 2021-03-19 10:03 | CASEMGMT ---
This RN CM to room to discuss d/c plan and pt states no concerns with going home at time of discharge. Pt voices no further questions/concerns/needs. S[place]en RN CM
[2021-03-19] MEDS: Carvedilol 6.25 MG Tablet PO (10:31)
[2021-03-19] MEDS: Spironolactone 25 MG Tablet PO (10:31)
[2021-03-19 14:18] LABS: Hep C Antibodies 0.3 s/co ratio (0.0-0.9)
[2021-03-19 17:07] LABS: Anti-Centromere B Ab <0.2 AI (0.0-0.9); Anti-Chromatin <0.2 AI (0.0-0.9); Anti-Jo <0.2 AI (0.0-0.9); Anti-Scleroderma-70 AB <0.2 AI (0.0-0.9); RNP Ab <0.2 AI (0.0-0.9); SJOGREN'S Anti-SS-A test < 0.2 AI (0.0-0.9); SJOGREN'S Anti-SS-B test < 0.2 AI (0.0-0.9); Smith Ab <0.2 AI (0.0-0.9)
[2021-03-19 17:39] LABS: Anti-Mitochondrial AB <20.0 Units (0.0-20.0); Anti-dsDNA Ab <1 IU/mL (0-9)
[2021-03-21 07:07] LABS: Ceruloplasmin 51.6 mg/dL (16.0-31.0)
[2021-03-21 08:38] LABS: Anti-Smooth Muscle ABS 10 Units (0-19); Copper, Serum or Plasma 204 ug/dL (69-132)
== END 2021-03-19 11:28 | disposition home or self-care (01) | DRG 291 ==
LOC: ED 20:10 → PCU 20:16
PROVIDERS: Internal Medicine Gastroenterology; Nurse Practitioner Family; Admitting Provider Hospitalist; Emergency Provider Emergency Medicine; PCP Nurse Practitioner Family
DX: I11.0 Hypertensive heart disease with heart failure (principal); I50.23 Acute on chronic systolic (congestive) heart failure; R18.8 Other ascites; B17.9 Acute viral hepatitis, unspecified; I27.20 Pulmonary hypertension, unspecified; J44.9 Chronic obstructive pulmonary disease, unspecified; E80.7 Disorder of bilirubin metabolism, unspecified; K76.1 Chronic passive congestion of liver; I25.10 Atherosclerotic heart disease of native coronary artery without angina pectoris; I25.5 Ischemic cardiomyopathy; K82.8 Other specified diseases of gallbladder; I25.2 Old myocardial infarction; R13.14 Dysphagia, pharyngoesophageal phase; Z79.82 Long term (current) use of aspirin; Z23 Encounter for immunization; Z86.73 Personal history of transient ischemic attack (TIA), and cerebral infarction without residual deficits; Z95.810 Presence of automatic (implantable) cardiac defibrillator; Z95.5 Presence of coronary angioplasty implant and graft; Z85.118 Personal history of other malignant neoplasm of bronchus and lung; Z87.891 Personal history of nicotine dependence; Z20.822 Contact with and (suspected) exposure to COVID-19
CPT/HCPCS: 36415; 71045; 74177; 74181; 76705; 80048; 80053; 80074; 80076; 80329; 81001; 82390; 82525; 83516; 83605; 83615; 83690; 83880; 84484; 85025; 86225; 86235; 87426; 93005; 93306; 99285; G0008; J7030; J7050; Q9967; 90686; A4216; G0480; J1940